=== PATIENT | male | born 1955 | race Caucasian/White ===

== ENCOUNTER 2018-06-23 20:47 | Observation (INO) | payer MEDICAID, OTHER ==
[~2018-06-23] VITALS: Ht 175.3 cm; Wt 84.0 kg
--- OUTSIDE RECORDS SUMMARY | 2018-06-23 20:53 | XMS REPORT ---
Author Author BASILIO BENEDICT [facility] eClinicalWorks Address Unknown Phone Unavailable Care Team Providers Care Paralegal Assistant Name Role Phone BASILIO BENEDICT CP Unavailable Allergies, Adverse Reactions, Alerts Substance Reaction Event Type N.K.D.A. Info Not Available Non Drug Allergy Problems Problem Type Condition Code Onset Dates Condition Status Problem Pain in soft tissues of limb 729.5 Active Problem Obstructive chronic bronchitis, with (acute) exacerbation 491.21 Active Problem Migraine aura without headache G43.109 Active Assessment Strain of chest wall, initial encounter S29.011A Active Problem Impacted cerumen 380.4 Active Problem Acute upper respiratory infections of unspecified site 465.9 Active Medications Medication Code System Code Instructions Start Date End Date Status Dosage Symbicort [facility] [address]-89 160-4.5 MCG/ACT Inhalation Twice a day [address] [facility] [address]-93 25 MG Orally every 12 hrs 1 tablet as needed Pantoprazole Sodium [facility] [address]-35 40 MG Orally Once a day [address] [facility] [address]-52 50 MG Orally Twice a day [address] [facility] [address]-00 0.4 MG Orally Once a day 1 capsule 30 minutes after the same meal each day Hydrocodone-Acetaminophen [facility] [address]-60 5-325 mg Nov 28, 2011 3 times per day Asp[address]in [facility] [address]-08 81 MG Orally Once a day [address] [facility] [address]-89 100 MG Orally Once a day 1.[address] [facility] [address]-10 30 MG Orally Once a day 1 tablet before bedtime in the evening Cyclobenzaprine HCl [facility] [address]-13 10 MG Orally Three times a day [address] [facility] [address]-90 800 MG Orally Three times a day as needed Jul 18, [address] [facility] [address]-41 5 mg Orally 2 times a day not defined Pravastatin Sodium [facility] [address]-08 40 MG Orally Once a day 0.[address] [facility] [address]-21 10 MG Orally not defined Metformin HCl [facility] [address]-94 1000 MG Orally Twice a day 1 tablet with meals Fioricet [facility] [address]-57 50-300-40 MG Orally every 4 hrs 1 capsule as needed Singulair [facility] [address]-70 10 MG Orally Once a day 1 tablet in the evening Flonase Allergy Relief [facility] [address]-80 50 MCG/ACT Nasally Once a day 1 spray in each nostril Procedures Procedure Coding System Code Date Office Visit, Est Pt., Level 3 CPT-4 15192 Jul 18, 2016 Vital Signs Date/Time: Jul 18, 2016 Cardiac Monitoring Heart Rate 87 bpm Weight 182 lbs Height 69 in BMI 26.87 Index Blood Pressure Diastolic 80 mmHg Blood Pressure Systolic 120 mmHg Results No Known Results Summary Purpose eClinicalWorks Submission
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
--- OUTSIDE RECORDS SUMMARY | 2018-06-23 20:53 | XMS REPORT ---
Author Author YOANA KIMMIE Organization [facility] Address [address] [place] [address] Care Team Providers Care Restaurant Attendant Name Role Phone SHOBHAURBAN OSBORNEYLA Unavailable PROBLEMS Type Condition ICD9-CM Code ZOF18-CM Code Onset Dates Condition Status SNOMED Code Problem Acute upper respiratory infections of unspecified site 465.9 Active 66531044 Problem Migraine aura without headache G43.109 Active 477202940 Problem Impacted cerumen 380.4 Active 93154137 Problem Pain in soft tissues of limb 729.5 Active 47295888 Problem Obstructive chronic bronchitis, with (acute) exacerbation 491.21 Active 756974635 Problem Chronic obstructive pulmonary disease with (acute) exacerbation J44.1 Active 829263334 Problem Bipolar disorder, current episode depressed, severe, without psychotic features F31.4 Active 044341089 Problem Bipolar I disorder F31.9 Active 386394003 Problem Episode of recurrent major depressive disorder, unspecified depression episode severity F33.9 Active 991953787 Problem Cocaine use disorder, severe, 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 [id number] [address] Sep, Bipolar disorder, current episode depressed, severe, without psychotic features F31.4 [facility] [address] 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 [facility] [address] [place] [address] Jun, Bipolar disorder, current episode depressed, severe, without psychotic features F31.4 ; PTSD (post-traumatic stress disorder) F43.10 and Cocaine use disorder, severe, 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 [facility] [address], [place] [address] Jun, [facility] [address], [place] [address] Jun, [place] [address], [place] [address] May, [facility] [address] [place] [address] May, Bipolar I disorder F31.9 and PTSD (post-traumatic stress disorder) F43.10 [facility] [address], [place] [address] May, Bipolar disorder, current episode depressed, severe, without psychotic features F31.4 ; PTSD (post-traumatic stress disorder) F43.10 and Cocaine use disorder, severe, 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 [facility] [address], [place] [address] May, [facility] [address] [address] Apr, Bipolar I disorder F31.9 ; PTSD (post-traumatic stress disorder) F43.10 and Episode of recurrent major depressive disorder, unspecified depression episode severity F33.9 [address]100[place] [id number] Aug, [place] [id number] [id number] Jul, Strain of chest wall, initial encounter S29.011A [address] [id number] Oct, Migraine aura without headache G43.109 [facility] [id number] [place] [address] Jan, [facility] [address] [place] [address] Jan, [address] [place] [id number] Jul, [address] [id number] Nov, IMMUNIZATIONS No Known Immunizations SOCIAL HISTORY Never Assessed REASON FOR VISIT MI Choice PLAN OF CARE VITAL SIGNS MEDICATIONS Medication Instructions Dosage Frequency Start Date End Date Duration Status Risperidone 1 MG Orally Once a day at bedtime 1 tablet Jun, 30 day(s) Active RESULTS No Results PROCEDURES No Known procedures INSTRUCTIONS MEDICATIONS ADMINISTERED No Known Medications MEDICAL [...]
--- OUTSIDE RECORDS SUMMARY | 2018-06-23 20:53 | XMS REPORT ---
Author Author YOANA KIMMIE Organization [facility] Address [address] [place] [address] Care Team Providers Care Welding Machine Operator Thermit Name Role Phone SHOBHATOBY OSBORNEA Unavailable PROBLEMS Type Condition ICD9-CM Code VLL92-GD Code Onset Dates Condition Status SNOMED Code Problem Acute upper respiratory infections of unspecified site 465.9 Active 71951443 Problem Migraine aura without headache G43.109 Active 277359514 Problem Impacted cerumen 380.4 Active 07833221 Problem Pain in soft tissues of limb 729.5 Active 73095508 Problem Obstructive chronic bronchitis, with (acute) exacerbation 491.21 Active 425973169 Problem Chronic obstructive pulmonary disease with (acute) exacerbation J44.1 Active 156479150 Problem Bipolar disorder, current episode depressed, severe, without psychotic features F31.4 Active 325942171 Problem Bipolar I disorder F31.9 Active 861355141 Problem Episode of recurrent major depressive disorder, unspecified depression episode severity F33.9 Active 077464390 Problem Cocaine use disorder, severe, 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 Active 37638618 Problem PTSD (post-traumatic stress disorder) F43.10 Active 47334478 ALLERGIES Substance Reaction Event Type Date Status Erythromycin rash/shortness of breath Drug Allergy May, Active Azithromycin rash/shortness of breath Drug Allergy May, Active ENCOUNTERS Encounter Location Date Diagnosis [facility] [address] [facility] [id number], [place] [address] Sep, Bipolar disorder, current episode depressed, severe, without psychotic features F31.4 [facility] [address] [place] [id number], [place] [address] Aug, Bipolar disorder, current episode depressed, severe, without psychotic features F31.4 ; PTSD (post-traumatic stress disorder) F43.10 and Cocaine use disorder, severe, 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 [place] [address], [place] [address] Aug, Bipolar I disorder F31.9 and PTSD (post-traumatic stress disorder) F43.10 [facility] [address], [place] [address] Jul, Bipolar disorder, current episode depressed, severe, without psychotic features F31.4 ; PTSD (post-traumatic stress disorder) F43.10 and Cocaine use disorder, severe, 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 [facility] [address] [place] [address] Jun, Bipolar disorder, current episode depressed, severe, without psychotic features F31.4 ; PTSD (post-traumatic stress disorder) F43.10 and Cocaine use disorder, severe, 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 [place] [address], [place] [address] Jun, [place] [address] [place] [id number] [place] [address] Jun, [facility] [id number] [place] [address] May, [facility] [address] [place] [id number] [place] [address] May, Bipolar I disorder F31.9 and PTSD (post-traumatic stress disorder) F43.10 [facility] [address], [place] [address] May, Bipolar disorder, current episode depressed, severe, without psychotic features F31.4 ; PTSD (post-traumatic stress disorder) F43.10 and Cocaine use disorder, severe, 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 [facility] [address], [place] [address] May, [facility] [address], [place] [address] Apr, Bipolar I disorder F31.9 ; PTSD (post-traumatic stress disorder) F43.10 and Episode of recurrent major depressive disorder, unspecified depression episode severity F33.9 [facility] [id number] [id number] Aug, [place] [id number] [place] [id number] Jul, Strain of chest wall, initial encounter S29.011A [address] [place] [id number] Oct, Migraine aura without headache G43.109 [place] [address] [place] [id number] [place] [address] Jan, [place] [address] [place] [id number] [place] [address] Jan, [address] [place] [id number] Jul, [address] [place] [id number] Nov, IMMUNIZATIONS No Known Immunizations SOCIAL HISTORY Never Assessed REASON FOR VISIT Intake DAVID Otto RN PLAN OF CARE Activity Details Follow Up 4 Weeks Reason: VITAL SIGNS Height 69 in 2017-06-13 Weight 191.6 lbs 2017-06-13 Heart Rate 88 bpm 2017-06-13 Respiratory Rate 24 2017-06-13 BMI 28.29 kg/m2 2017-06-13 Blood pressure systolic 130 mmHg 2017-06-13 Blood pressure diastolic 88 mmHg 2017-06-13 MEDICATIONS Medication Instructions Dosage Frequency Start Date End Date Duration Status Metformin HCl 1000 MG Orally Twice a day 1 tablet with meals 12h Active Pravastatin Sodium 40 MG Orally Once a day 0.5 tablet 24h Active Topamax 50 MG Orally Twice a day 1 tablet 12h Active Symbicort 160-4.5 MCG/ACT Inhalation Twice a day 2 puffs 12h Active Cetirizine HCl 10 MG Active Singulair 10 MG Orally Once a day 1 tablet in the evening 24h Active Flonase Allergy Relief 50 MCG/ACT Nasally Once a day 1 spray in each nostril 24h Active Fioricet 50-300-40 MG Orally every 4 hrs 1 capsule as needed 4h Active Gabapentin 300 MG Orally at bedtime 2 capsules Active Aspirin 81 MG Orally Once a day 1 tablet 24h Active Eliquis 5 mg Orally 2 times a day 12h Active Pantoprazole Sodium 40 MG Orally Once a day 1 tablet 24h Active Invega 3 MG Orally Once a day 1 tablet at night 24h May, 30 day (s) Active Promethazine HCl 25 MG Orally every 12 hrs 1 tablet as needed 12h Active Baclofen 10 MG Orally Three times a day 8h Active Flomax 0.4 MG Orally Once a day 1 capsule 30 minutes after the same meal each day 24h Active Hydrocodone-Acetaminophen 5-325 mg 3 times per day Nov, Active RESULTS No Results PROCEDURES No Known [...]
--- OUTSIDE RECORDS SUMMARY | 2018-06-23 20:53 | XMS REPORT ---
Author Author BASILIO BENEDICT Organization [employer] Address Unknown Phone Unavailable Care Team Providers Care Garage Door Technician Name Role Phone BASILIO BENEDICT CP Unavailable Allergies No Known Allergies Problems Problem Type Condition Code Onset Dates Condition Status Problem Pain in soft tissues of limb 729.5 Active Problem Obstructive chronic bronchitis, with (acute) exacerbation 491.21 Active Problem Migraine aura without headache G43.109 Active Problem Impacted cerumen 380.4 Active Problem Acute upper respiratory infections of unspecified site 465.9 Active Medications Medication Code System Code Instructions Start Date End Date Status Dosage ProAir HFA [facility] [address]-76 108 (90 Base) MCG/ACT Inhalation every 4 hrs Aug 27, 2016 2 puffs as needed Azithromycin [facility] [address]-86 250 MG Orally Once a day Aug 27, 2016 Aug 25, 2016 2 tablets on the first day, then 1 tablet daily for 4 days Results No Known Results Summary Purpose eClinicalWorks Submission
--- OUTSIDE RECORDS SUMMARY | 2018-06-23 20:54 | XMS REPORT ---
Author Author BASILIO BENEDICT [facility] eClinicalWorks Address Unknown Phone Unavailable Care Team Providers Care Termite Helper Name Role Phone BASILIO BENEDICT CP Unavailable Allergies, Adverse Reactions, Alerts Substance Reaction Event Type N.K.D.A. Info Not Available Non Drug Allergy Problems Problem Type Condition Code Onset Dates Condition Status Problem Pain in soft tissues of limb 729.5 Active Problem Obstructive chronic bronchitis, with (acute) exacerbation 491.21 Active Problem Migraine aura without headache G43.109 Active Assessment Migraine aura without headache G43.109 Active Problem Impacted cerumen 380.4 Active Problem Acute upper respiratory infections of unspecified site 465.9 Active Medications Medication Code System Code Instructions Start Date End Date Status Dosage Metformin HCl [facility] [address]-82 1000 MG Orally Twice a day 1 tablet with meals Cyclobenzaprine HCl [facility] [address]-25 10 MG Orally Three times a day 1 tablet Mirtazapine [facility] [address]-20 30 MG Orally Once a day 1 tablet before bedtime in the evening Hydrocodone-Acetaminophen [facility] [address]-47 5-325 mg Nov 28, 2011 3 times per day Singulair [facility] [address]-64 10 MG Orally Once a day 1 tablet in the evening Pantoprazole Sodium [facility] [address]-08 40 MG Orally Once a day 1 tablet Combivent Respimat [facility] [address]-33 20-100 MCG/ACT Inhalation Four times a day 1 puff Latuda [facility] [address]-84 80 MG Orally Once a day 1 tablet with food Flonase Allergy Relief [facility] [address]-34 50 MCG/ACT Nasally Once a day 1 spray in each nostril Amitriptyline HCl [facility] [address]-03 25 MG Orally Once a day Oct 25, 2015 .5-1 tablet Topamax [facility] [address]-18 50 MG Orally Twice a day 1 tablet Pravastatin Sodium [facility] [address]-80 40 MG Orally Once a day 0.5 tablet Browning Carbonate [facility] [address]-25 300 MG Orally 4 times a day 1 capsule Sertraline HCl [facility] [address]-36 100 MG Orally Once a day 1.5 tablet Fioricet [facility] [address]-78 50-300-40 MG Orally every 4 hrs 1 capsule as needed Aspirin [facility] [address]-97 81 MG Orally Once a day 1 tablet Promethazine HCl [facility] [address]-79 25 MG Orally every 12 hrs 1 tablet as needed Flomax [facility] [address]-46 0.4 MG Orally Once a day 1 capsule 30 minutes after the same meal each day Cetirizine HCl [facility] [address]-39 10 MG Orally not defined Procedures Procedure Coding System Code Date Office Visit, Est Pt., Level 3 CPT-4 27625 Oct 25, 2015 Vital Signs Date/Time: Oct 25, 2015 Temperature 98.1 F Weight 203.2 lbs Height 69 in BMI 30.00 Index Blood Pressure Diastolic 80 mmHg Blood Pressure Systolic 110 mmHg Cardiac Monitoring Heart Rate 78 bpm Results No Known Results Summary Purpose eClinicalWorks Submission
--- OUTSIDE RECORDS SUMMARY | 2018-06-23 20:54 | XMS REPORT ---
Author Author YOANA KIMMIE Organization [facility] Address [address] [place] [address] Care Team Providers Care Energy Advisor Name Role Phone SHOBHAURBAN OSBORNEYLA Unavailable PROBLEMS Type Condition ICD9-CM Code EIO93-AC Code Onset Dates Condition Status SNOMED Code Problem Acute upper respiratory infections of unspecified site 465.9 Active 18836557 Problem Migraine aura without headache G43.109 Active 153530452 Problem Impacted cerumen 380.4 Active 30530518 Problem Pain in soft tissues of limb 729.5 Active 81538671 Problem Obstructive chronic bronchitis, with (acute) exacerbation 491.21 Active 076860526 Problem Chronic obstructive pulmonary disease with (acute) exacerbation J44.1 Active 422344203 Problem Bipolar disorder, current episode depressed, severe, without psychotic features F31.4 Active 933777537 Problem Bipolar I disorder F31.9 Active 305856116 Problem Episode of recurrent major depressive disorder, unspecified depression episode severity F33.9 Active 290621606 Problem Cocaine use disorder, severe, 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 Active 55977637 Problem PTSD (post-traumatic stress disorder) F43.10 Active 88332926 ALLERGIES No Information ENCOUNTERS Encounter Location Date Diagnosis [facility] [address] [facility] [id number] [address] Sep, Bipolar disorder, current episode depressed, severe, without psychotic features F31.4 [facility] [address] [facility] [id number], [place] [address] Aug, Bipolar disorder, current episode depressed, severe, without psychotic features F31.4 ; PTSD (post-traumatic stress disorder) F43.10 and Cocaine use disorder, severe, 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 [facility] [address] [facility] [id number], [place] [address] Aug, Bipolar I disorder F31.9 and PTSD (post-traumatic stress disorder) F43.10 [facility] [address], [place] [address] Jul, Bipolar disorder, current episode depressed, severe, without psychotic features F31.4 ; PTSD (post-traumatic stress disorder) F43.10 and Cocaine use disorder, severe, 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 [facility] [address] [place] [address] Jun, Bipolar disorder, current episode depressed, severe, without psychotic features F31.4 ; PTSD (post-traumatic stress disorder) F43.10 and Cocaine use disorder, severe, 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 [facility] [address], [place] [address] Jun, [facility] [address], [place] [address] Jun, [place] [address], [place] [address] May, [facility] [address] [place] [address] May, Bipolar I disorder F31.9 and PTSD (post-traumatic stress disorder) F43.10 [facility] [address], [place] [address] May, Bipolar disorder, current episode depressed, severe, without psychotic features F31.4 ; PTSD (post-traumatic stress disorder) F43.10 and Cocaine use disorder, severe, 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 [facility] [address], [place] [address] May, [facility] [address] [address] Apr, Bipolar I disorder F31.9 ; PTSD (post-traumatic stress disorder) F43.10 and Episode of recurrent major depressive disorder, unspecified depression episode severity F33.9 [address] [id number] Aug, [place] [id number] [id number] Jul, Strain of chest wall, initial encounter S29.011A [place] [id number] [id number] Oct, Migraine aura without headache G43.109 [facility] [address] [place] [address] [id number] [place] [address] Jan, [facility] [address], [place] [address] Jan, [address] [place] [id number] Jul, [address] [id number] Nov, IMMUNIZATIONS No Known Immunizations SOCIAL HISTORY Never Assessed REASON FOR VISIT Medication refill request PLAN OF CARE VITAL SIGNS MEDICATIONS Medication Instructions Dosage Frequency Start Date End Date Duration Status Latuda 80 MG Orally every night with food 1 tablet 30 days Active RESULTS No Results PROCEDURES No Known [...] Surgical History had stent placed in heart 2014 Hospitalization History He has had multiple inpatient psychiatric treatment, last in his 30s. He has had several suicide attempts in teens and young adult
--- OUTSIDE RECORDS SUMMARY | 2018-06-23 20:54 | XMS REPORT ---
Author Author YOANA KIMMIE Organization [facility] Address [address] [place] [address] Care Team Providers Care Multifold Operator Name Role Phone SHOBHAURBAN OSBORNEYLA Unavailable PROBLEMS Type Condition ICD9-CM Code RRM73-PV Code Onset Dates Condition Status SNOMED Code Problem Acute upper respiratory infections of unspecified site 465.9 Active 51944869 Problem Migraine aura without headache G43.109 Active 824350941 Problem Impacted cerumen 380.4 Active 27789645 Problem Pain in soft tissues of limb 729.5 Active 62473562 Problem Obstructive chronic bronchitis, with (acute) exacerbation 491.21 Active 238445497 Problem Chronic obstructive pulmonary disease with (acute) exacerbation J44.1 Active 720061313 Problem Bipolar disorder, current episode depressed, severe, without psychotic features F31.4 Active 947454420 Problem Bipolar I disorder F31.9 Active 315128206 Problem Episode of recurrent major depressive disorder, unspecified depression episode severity F33.9 Active 250064505 Problem Cocaine use disorder, severe, 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 Active 90393565 Problem PTSD (post-traumatic stress disorder) F43.10 Active 90124255 ALLERGIES No Information ENCOUNTERS Encounter Location Date Diagnosis [facility] [address] [facility] [id number], [place] [address] Sep, Bipolar disorder, current episode depressed, severe, without psychotic features F31.4 [facility] [address] [facility] [id number], [place] [address] Aug, Bipolar disorder, current episode depressed, severe, without psychotic features F31.4 ; PTSD (post-traumatic stress disorder) F43.10 and Cocaine use disorder, severe, 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 [facility] [address] [facility] [id number], [place] [address] Aug, Bipolar I disorder F31.9 and PTSD (post-traumatic stress disorder) F43.10 [facility] [address], [place] [address] Jul, Bipolar disorder, current episode depressed, severe, without psychotic features F31.4 ; PTSD (post-traumatic stress disorder) F43.10 and Cocaine use disorder, severe, 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 [facility] [address] [place] [address] Jun, Bipolar disorder, current episode depressed, severe, without psychotic features F31.4 ; PTSD (post-traumatic stress disorder) F43.10 and Cocaine use disorder, severe, 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 [facility] [address], [place] [address] Jun, [facility] [address], [place] [address] Jun, [place] [address], [place] [address] May, [facility] [address] [place] [address] May, Bipolar I disorder F31.9 and PTSD (post-traumatic stress disorder) F43.10 [facility] [address], [place] [address] May, Bipolar disorder, current episode depressed, severe, without psychotic features F31.4 ; PTSD (post-traumatic stress disorder) F43.10 and Cocaine use disorder, severe, 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 [facility] [address], [place] [address] May, [facility] [address] [address] Apr, Bipolar I disorder F31.9 ; PTSD (post-traumatic stress disorder) F43.10 and Episode of recurrent major depressive disorder, unspecified depression episode severity F33.9 [address] [id number] Aug, [place] [id number] [id number] Jul, Strain of chest wall, initial encounter S29.011A [place] [id number] [id number] Oct, Migraine aura without headache G43.109 [facility] [address] [place] [id number] [place] [address] Jan, [facility] [address] [place] [address] Jan, [address] [place] [id number] Jul, [address] [id number] Nov, IMMUNIZATIONS No Known Immunizations SOCIAL HISTORY Never Assessed REASON FOR VISIT Medication question PLAN OF CARE VITAL SIGNS MEDICATIONS Medication Instructions Dosage Frequency Start Date End Date Duration Status Invega 3 MG Orally Once a day 1 tablet at night 24h May, 30 day (s) Active RESULTS No Results PROCEDURES No Known [...]
--- OUTSIDE RECORDS SUMMARY | 2018-06-23 20:54 | XMS REPORT ---
Author Author YOANA KIMMIE Organization [facility] Address [address] [place] [address] Care Team Providers Care Track Leader Name Role Phone SHOBHAURBAN OSBORNEYLA Unavailable PROBLEMS Type Condition ICD9-CM Code CIE66-NM Code Onset Dates Condition Status SNOMED Code Problem Acute upper respiratory infections of unspecified site 465.9 Active 79761106 Problem Migraine aura without headache G43.109 Active 769763869 Problem Impacted cerumen 380.4 Active 65440434 Problem Pain in soft tissues of limb 729.5 Active 09582822 Problem Obstructive chronic bronchitis, with (acute) exacerbation 491.21 Active 209998657 Problem Chronic obstructive pulmonary disease with (acute) exacerbation J44.1 Active 130330904 Problem Bipolar disorder, current episode depressed, severe, without psychotic features F31.4 Active 828283281 Problem Bipolar I disorder F31.9 Active 523916646 Problem Episode of recurrent major depressive disorder, unspecified depression episode severity F33.9 Active 527726544 Problem Cocaine use disorder, severe, 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 [id number], [place] [address] Sep, Bipolar disorder, current episode depressed, severe, without psychotic features F31.4 [facility] [address] 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 [facility] [address] [place] [address] Jun, Bipolar disorder, current episode depressed, severe, without psychotic features F31.4 ; PTSD (post-traumatic stress disorder) F43.10 and Cocaine use disorder, severe, 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 [facility] [address], [place] [address] Jun, [facility] [address], [place] [address] Jun, [place] [address], [place] [address] May, [facility] [address] [place] [address] May, Bipolar I disorder F31.9 and PTSD (post-traumatic stress disorder) F43.10 [facility] [address], [place] [address] May, Bipolar disorder, current episode depressed, severe, without psychotic features F31.4 ; PTSD (post-traumatic stress disorder) F43.10 and Cocaine use disorder, severe, 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 [facility] [address], [place] [address] May, [facility] [address] [address] Apr, Bipolar I disorder F31.9 ; PTSD (post-traumatic stress disorder) F43.10 and Episode of recurrent major depressive disorder, unspecified depression episode severity F33.9 [address] [id number] Aug, [place] [id number] [id number] Jul, Strain of chest wall, initial encounter S29.[address]A [address] [id number] Oct, Migraine aura without headache G43.109 [facility] [address] [place] [id number] [place] [address] Jan, [facility] [address] [place] [address] Jan, [address] [place] [id number] Jul, [address] [id number] Nov, IMMUNIZATIONS No Known Immunizations SOCIAL HISTORY Never Assessed REASON FOR VISIT INVEGA note PLAN OF CARE VITAL SIGNS MEDICATIONS Medication [...]
--- OUTSIDE RECORDS SUMMARY | 2018-06-23 20:54 | XMS REPORT ---
Author Author UMBERTO SOLOMON Organization [facility] Address [address] [place] [address] Care Team Providers Care Insurance Consultant Name Role Phone UMBERTO SOLOMON Unavailable PROBLEMS Type Condition ICD9-CM Code XHV52-BH Code Onset Dates Condition Status SNOMED Code Problem Acute upper respiratory infections of unspecified site 465.9 Active 17422968 Problem Migraine aura without headache G43.109 Active 201082489 Problem Impacted cerumen 380.4 Active 42521499 Problem Pain in soft tissues of limb 729.5 Active 26482454 Problem Obstructive chronic bronchitis, with (acute) exacerbation 491.21 Active 924113903 Problem Chronic obstructive pulmonary disease with (acute) exacerbation J44.1 Active 952757236 Problem Bipolar disorder, current episode depressed, severe, without psychotic features F31.4 Active 078288164 Problem Bipolar I disorder F31.9 Active 886069185 Problem Episode of recurrent major depressive disorder, unspecified depression episode severity F33.9 Active 605240856 Problem Cocaine use disorder, severe, 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 Active 13938059 Problem PTSD (post-traumatic stress disorder) F43.10 Active 08131358 ALLERGIES No Information ENCOUNTERS Encounter Location Date Diagnosis [facility] [address] [facility] [id number] [address] Sep, Bipolar disorder, current episode depressed, severe, without psychotic features F31.4 [facility] [address] [facility] [id number], [place] [address] Aug, Bipolar disorder, current episode depressed, severe, without psychotic features F31.4 ; PTSD (post-traumatic stress disorder) F43.10 and Cocaine use disorder, severe, 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 [facility] [address] [facility] [id number], [place] [address] Aug, Bipolar I disorder F31.9 and PTSD (post-traumatic stress disorder) F43.10 [facility] [address], [place] [address] Jul, 2017 Bipolar disorder, current episode depressed, severe, without psychotic features F31.4 ; PTSD (post-traumatic stress disorder) F43.10 and Cocaine use disorder, severe, 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 [facility] [address] [place] [address] Jun, Bipolar disorder, current episode depressed, severe, without psychotic features F31.4 ; PTSD (post-traumatic stress disorder) F43.10 and Cocaine use disorder, severe, 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 [facility] [address] [place] [address] Jun, [place] [address] [place] [address] Jun, [facility] [address] [place] [id number] [place] [address] May, [facility] [address] [place] [address] May, Bipolar I disorder F31.9 and PTSD (post-traumatic stress disorder) F43.10 [facility] [address] [place] [address] May, Bipolar disorder, current episode depressed, severe, without psychotic features F31.4 ; PTSD (post-traumatic stress disorder) F43.10 and Cocaine use disorder, severe, 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 [facility] [facility] [address], [place] [address] May, [facility] [facility] [address] [place] [id number] Apr, Bipolar I disorder F31.9 ; PTSD (post-traumatic stress disorder) F43.10 and Episode of recurrent major depressive disorder, unspecified depression episode severity F33.9 [address] [id number] Aug, [facility] [address] [facility] [id number] [id number] Jul, Strain of chest wall, initial encounter S29.011A [facility] [address] [place]0332[place] [id number] Oct, Migraine aura without headache G43.109 [facility] [place] [address], [place] [address] Jan, [facility] [facility] [address], [place] [address] Jan, [place] [id number] [id number] Jul, [facility] [address] [place] [id number] [id number] Nov, IMMUNIZATIONS No Known Immunizations SOCIAL HISTORY Never Assessed REASON FOR VISIT Waiting for call back PLAN OF CARE VITAL SIGNS MEDICATIONS Unknown Medications RESULTS No Results PROCEDURES No Known procedures [...]
--- OUTSIDE RECORDS SUMMARY | 2018-06-23 20:55 | XMS REPORT ---
Author Author YOANA KIMMIE Organization [facility] Address [address] [place] [address] Care Team Providers Care Jig Operator Name Role Phone YOANA KIMMIE Unavailable PROBLEMS Type Condition ICD9-CM Code NIN77-GN Code Onset Dates Condition Status SNOMED Code Problem Acute upper respiratory infections of unspecified site 465.9 Active 62619478 Problem Migraine aura without headache G43.109 Active 353750148 Problem Impacted cerumen 380.4 Active 82158854 Problem Pain in soft tissues of limb 729.5 Active 14696894 Problem Obstructive chronic bronchitis, with (acute) exacerbation 491.21 Active 940574398 Problem Chronic obstructive pulmonary disease with (acute) exacerbation J44.1 Active 960844973 Problem Bipolar disorder, current episode depressed, severe, without psychotic features F31.4 Active 131837303 Problem Bipolar I disorder F31.9 Active 888242942 Problem Episode of recurrent major depressive disorder, unspecified depression episode severity F33.9 Active 496228507 Problem Cocaine use disorder, severe, 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 Active 20718295 Problem PTSD (post-traumatic stress disorder) F43.10 Active 48227954 ALLERGIES No Known Allergies ENCOUNTERS Encounter Location Date Diagnosis [facility] [id number] [place] [address] Sep, Bipolar disorder, current episode depressed, severe, without psychotic features F31.4 [facility] [address] [id number], [place] [address] Aug, Bipolar disorder, current episode depressed, severe, without psychotic features F31.4 ; PTSD (post-traumatic stress disorder) F43.10 and Cocaine use disorder, severe, 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 [facility] [address] [id number], [place] [address] Aug, Bipolar I disorder F31.9 and PTSD (post-traumatic stress disorder) F43.10 [facility] [address] [address] Jul, Bipolar disorder, current episode depressed, severe, without psychotic features F31.4 ; PTSD (post-traumatic stress disorder) F43.10 and Cocaine use disorder, severe, 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 [facility] [address] [address] Jun, Bipolar disorder, current episode depressed, severe, without psychotic features F31.4 ; PTSD (post-traumatic stress disorder) F43.10 and Cocaine use disorder, severe, 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 [facility] [address] [address] Jun, [facility] [address] [address] Jun, [facility] [address] [place] [address] May, [facility] [address] [address] May, Bipolar I disorder F31.9 and PTSD (post-traumatic stress disorder) F43.10 [facility] [address] [address] May, Bipolar disorder, current episode depressed, severe, without psychotic features F31.4 ; PTSD (post-traumatic stress disorder) F43.10 and Cocaine use disorder, severe, 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 [facility] [address] [address] May, [facility] [address] [address] Apr, Bipolar I disorder F31.9 ; PTSD (post-traumatic stress disorder) F43.10 and Episode of recurrent major depressive disorder, unspecified depression episode severity F33.9 [address] [id number] Aug, [facility] [address] [facility] [id number] [id number] Jul, Strain of chest wall, initial encounter S29.011A [facility] [id number] [id number] Oct, Migraine aura without headache G43.109 [facility] [id number] [place] [address] Jan, [facility] [address], [place] [address] Jan, [address] [id number] Jul, [facility] [address] [id number] [id number] Nov, IMMUNIZATIONS No Known Immunizations SOCIAL HISTORY Never Assessed REASON FOR VISIT F/U--Ashley Campa MA PLAN OF CARE Activity Details Follow Up 2 Weeks Reason: VITAL SIGNS Height 69 in 2017-07-11 Weight 196.0 lbs 2017-07-11 Heart Rate 80 bpm 2017-07-11 Respiratory Rate 22 2017-07-11 BMI 28.94 kg/m2 2017-07-11 Blood pressure systolic 134 mmHg 2017-07-11 Blood pressure diastolic 84 mmHg 2017-07-11 MEDICATIONS Medication Instructions Dosage Frequency Start Date End Date Duration Status Flomax 0.4 MG Orally Once a day 1 capsule 30 minutes after the same meal each day 24h Active Cetirizine HCl 10 MG Active Topamax 50 MG Orally Twice a day 1 tablet 12h Active Promethazine HCl 25 MG Orally every 12 hrs 1 tablet as needed 12h Active Fioricet 50-300-40 MG Orally every 4 hrs 1 capsule as needed 4h Active Eliquis 5 mg Orally 2 times a day 12h Active Hydrocodone-Acetaminophen 5-325 mg 3 times per day Nov, Active Pantoprazole Sodium 40 MG Orally Once a day 1 tablet 24h Active Pravastatin Sodium 40 MG Orally Once a day 0.5 tablet 24h Active Gabapentin 300 MG Orally at bedtime 2 capsules Active Aspirin 81 MG Orally Once a day 1 tablet 24h Active Risperdal 1 MG Orally Once a day 0.5 tablet 24h Jun, 30 day(s) Active Risperidone 1 MG Orally Once a day at bedtime 1 tablet Jun, 30 day(s) Active Flonase Allergy Relief 50 MCG/ACT Nasally Once a day 1 spray in each nostril 24h Active Symbicort 160-4.5 MCG/ACT Inhalation Twice a day 2 puffs 12h Active Baclofen 10 MG Orally Three times a day 8h Active Metformin HCl 1000 MG Orally Twice a day 1 tablet with meals 12h Active Singulair 10 MG Orally Once a day 1 tablet in the evening 24h Active RESULTS No Results PROCEDURES No Known [...]
[2018-06-23] MEDS ORDERED: NITROGLYCERIN 0.4 MG SL TABS BTL 25'S SL ONE (20:57)
[2018-06-23] MEDS ORDERED: ASPIRIN 81 MG CHEW (CHILDREN'S ASA) ONE (20:57)
[2018-06-23] MEDS ORDERED: ASPIRIN 81 MG CHEW (CHILDREN'S ASA) PO ONE (21:00)
[2018-06-23 21:07] LABS: BASOPHILS % (AUTO) 1 % (0-10); EOSINOPHILS # (AUTO) 0.4 10^3/uL (0.0-0.3); EOSINOPHILS % (AUTO) 5 % (0-10); HEMATOCRIT 42 % (40-54); HEMOGLOBIN 14.3 G/DL (13.3-17.7); LYMPHOCYTES # (AUTO) 2.5 X 10^3 (1.0-4.0); LYMPHOCYTES % (AUTO) 33 % (12-44); MEAN CORPUSCULAR HEMOGLOBIN 31 PG (25-34); MEAN CORPUSCULAR HGB CONC 34 G/DL (32-36); MEAN CORPUSCULAR VOLUME 91 FL (80-99); MEAN PLATELET VOLUME 10.6 FL (7.4-10.4); MONOCYTES # (AUTO) 0.6 X 10^3 (0.0-1.0); MONOCYTES % (AUTO) 8 % (0-12); NEUTROPHILS % (AUTO) 54 % (42-75); PLATELET COUNT 291 10^3/uL (130-400); RED BLOOD COUNT 4.61 10^6/uL (4.35-5.85); RED CELL DISTRIBUTION WIDTH 12.8 % (10.0-14.5); WHITE BLOOD COUNT 7.5 10^3/uL (4.3-11.0)
[2018-06-23] MEDS: NITROGLYCERIN 0.4 MG SL TABS BTL 25'S SL PRN ×3 (21:07→21:21)
[2018-06-23 21:26] LABS: ALANINE AMINOTRANSFERASE 11 U/L (0-55); ALBUMIN 4.4 GM/DL (3.2-4.5); ALKALINE PHOSPHATASE 66 U/L (40-136); AMYLASE 21 U/L (25-125); BILIRUBIN,TOTAL 0.5 MG/DL (0.1-1.0); BUN/CREATININE RATIO 5; CALCIUM 9.3 MG/DL (8.5-10.1); CARBON DIOXIDE 21 MMOL/L (21-32); CHLORIDE 105 MMOL/L (98-107); CREATINE KINASE 96 U/L (30-200); CREATININE SERUM 0.77 MG/DL (0.60-1.30); GFR ESTIMATED > 60; GLUCOSE 121 MG/DL (70-105); LIPASE 22 U/L (8-78); MAGNESIUM 1.8 MG/DL (1.8-2.4); POTASSIUM 2.9 MMOL/L (3.6-5.0); SODIUM 141 MMOL/L (135-145); TOTAL PROTEIN 7.3 GM/DL (6.4-8.2)
[2018-06-23] MEDS ORDERED: morphine INJ 10 MG/ML 1ML (SYR OR VIAL) IVP STA ×3 (21:29→22:54)
--- NOTE | 2018-06-23 21:29 | Diagnostic Imaging Report ---
EXAMINATION: Chest radiograph, portable AP view. DATE: June 23, 2018 at 2114 hours. INDICATION: 62-year-old male, severe chest pain. COMPARISON: None. FINDINGS: Heart size and mediastinal contours are unremarkable. There is no identified pneumothorax. There is eventration of the right hemidiaphragm. There is slight blunting of the left lateral costophrenic angle. There are minimal streaky opacities in the left lung base. The right lung appears grossly clear. IMPRESSION: 1. Minimal blunting of the left lateral costophrenic angle and minimal streaky opacities in the left lung base which potentially may reflect atelectasis although a small amount of infiltrate and/or pleural effusion are difficult to exclude. Dictated by: Dictated on workstation # [id number]
[2018-06-23] MEDS ORDERED: KCL 20 MEQ TAB (K-DUR) PO ONE (21:30)
[2018-06-23 21:34] LABS: MYOGLOBIN SERUM 41.9 NG/ML (10.0-92.0)
--- NOTE | 2018-06-23 21:37 | ED Chest Pain ---
General Chief Complaint: Chest Pain Stated Complaint: CP Source: patient History of Present Illness Date Seen by Provider: Jun 23, 2018 Time Seen by Provider: 20:53 Initial Comments PT ARRIVES VIA POV FROM HOME C/O CHEST PAIN SINCE 1300 TODAY PAIN HAS BEEN OFF AND ON ALL DAY, BUT HAS BEEN MUCH WORSE AND CONSTANT FOR THE LAST HOUR RATES PAIN 7 OR 8/10 NOTHING WORSENS OR IMPROVES PAIN NO RADIATION OF PAIN + SWEATS + SHORTNESS OF BREATH CHRONIC LEG ANKLE SWELLING THAT COMES AND GOES, IS NOT PRESENT NOW NO PALPITATIONS NO DIZZINESS OR SYNCOPE NO COUGH, FEVER, OR RECENT ILLNESS PT HAS HISTORY OF CAD WITH STENT X 1 IN 2012 DOES NOT HAVE ANY NTG AT HOME PT HAS NOT TAKEN ANY ASPIRIN TODAY PT CONTINUES TO SMOKE AT LEAST 1 PPD PT DRINKS ON REGULAR BASIS, AND STATES HE HAS HAD 2 BEERS TODAY. PT HAS HISTORY OF COCAINE AND THC USE, BUT DENIES RECENT USE AND DENIES IV USE. PCP: MICAH IN [facility] Allergies and Home Medications Allergies Coded Allergies: doxycycline (Verified Allergy, Severe, Rash, 06/24/18) levofloxacin (Verified Allergy, Severe, Rash, 06/24/18) Patient Home Medication List Home Medication List Reviewed: Yes Review of Systems Review of Systems Constitutional: see HPI, diaphoresis; No dizziness EENTM: No Symptoms Reported Respiratory: See HPI, Shortness of Air Cardiovascular: See HPI, Chest Pain; Denies Edema, Denies Irregular Heart Rate , Denies Lightheadedness, Denies Palpitations, Denies Syncope Gastrointestinal: No Symptoms Reported; Denies Abdominal Pain, Denies Nausea, Denies Vomiting Genitourinary: No Symptoms Reported Musculoskeletal: no symptoms reported Skin: no symptoms reported Psychiatric/Neurological: No Symptoms Reported Endocrine: No Symptoms Reported Hematologic/Lymphatic: No Symptoms Reported Past Dxptlea-Hcxscv-Gzcezc Hx Patient Social History Alcohol Use: Regular Use (3-4 DRINKS A DAY ) Recreational Drug Use: Yes (HX OF COCAINE, THC USE. DENIES IV USE) Drug of Choice: HX O COCAINE, THC USE. DENIES IV USE Smoking Status: Current Everyday Smoker (1 PPD) Recent Foreign Travel: No Contact w/Someone Who Travel: No Past Medical History Surgeries: Yes (CARDIAC CATH WITH STENT X 1) Cardiac, Coronary Stent Respiratory: No Cardiac: Yes Coronary Artery Disease, Heart Attack, High Cholesterol Neurological: No Genitourinary: No Gastrointestinal: Yes Gastroesophageal Reflux, Gastrointestinal Bleed, Esophagitis, Ulcer Musculoskeletal: No Endocrine: No HEENT: No Psychosocial: No Integumentary: No Blood Disorders: No Physical Exam Vital Signs Vital Signs - First Documented Capillary Refill : Height, Weight, BMI Height: '" Weight: lbs. oz. kg; BMI Method: General Appearance: No Apparent Distress, WD/WN, Other (REEKS OF CIGARETTE) HEENT: PERRL/EOMI Neck: Full Range of Motion, Normal Inspection, Non Tender, Supple; No Carotid Bruit, No JVD Respiratory: Normal Breath Sounds, No Accessory Muscle Use, No Respiratory Distress Cardiovascular: Regular Rate, Rhythm, No Edema, No JVD, No Murmur, Normal Peripheral Pulses Gastrointestinal: Normal Bowel Sounds, No Organomegaly, No Pulsatile Mass, Non Tender, Soft Extremity: Normal Capillary Refill, Normal Inspection, Normal Range of Motion, Non Tender, No Calf Tenderness, No Pedal Edema Neurologic/Psychiatric: Alert, Oriented x3, No Motor/Sensory Deficits, Normal Mood/Affect, reliner II-XII Norm as Tested Skin: Normal Color, Warm/Dry Progress/Results/Core Measures Results/Orders Lab Results Laboratory Tests Test 06/23/18 20:55 06/23/18 21:32 Range/Units White Blood Count 7.5 4.3-11.0 10^3/uL Red Blood Count 4.61 4.35-5.85 10^6/uL Hemoglobin 14.3 13.3-17.7 G/DL Hematocrit 42 40-54 % Mean Corpuscular Volume 91 80-99 FL Mean Corpuscular Hemoglobin 31 25-34 PG Mean Corpuscular Hemoglobin Concent 34 32-36 G/DL Red Cell Distribution Width 12.8 10.0-14.5 % Platelet Count 291 130-400 10^3/uL Mean Platelet Volume 10.6 H 7.4-10.4 FL Neutrophils (%) (Auto) 54 42-75 % Lymphocytes (%) (Auto) 33 12-44 % Monocytes (%) (Auto) 8 0-12 % Eosinophils (%) (Auto) 5 0-10 % Basophils (%) (Auto) 1 0-10 % Neutrophils # (Auto) 4.0 1.8-7.8 X 10^3 Lymphocytes # (Auto) 2.5 1.0-4.0 X 10^3 Monocytes # (Auto) 0.6 0.0-1.0 X 10^3 Eosinophils # (Auto) 0.4 H 0.0-0.3 10^3/uL Basophils # (Auto) 0.0 0.0-0.1 10^3/uL Prothrombin Time 13.0 12.2-14.7 SEC INR Comment 1.0 0.8-1.4 Activated Partial Thromboplast Time 26 24-35 SEC Sodium Level 141 135-145 MMOL/L Potassium Level 2.9 L 3.6-5.0 MMOL/L Chloride Level 105 98-107 MMOL/L Carbon Dioxide Level 21 21-32 MMOL/L Anion Gap 15 H 5-14 MMOL/L Blood Urea Nitrogen 4 L 7-18 MG/DL Creatinine 0.77 0.60-1.30 MG/DL Estimat Glomerular Filtration Rate > 60 BUN/Creatinine Ratio 5 Glucose Level 121 H 70-105 MG/DL Calcium Level 9.3 8.5-10.1 MG/DL Corrected Calcium 9.0 8.5-10.1 MG/DL Magnesium Level 1.8 1.8-2.4 MG/DL Total Bilirubin 0.5 0.1-1.0 MG/DL Aspartate Amino Transf (AST/SGOT) 10 5-34 U/L Alanine Aminotransferase (ALT/SGPT) 11 0-55 U/L Alkaline Phosphatase 66 40-136 U/L Total Creatine Kinase 96 30-200 U/L Creatine Kinase MB 2.0 <6.6 NG/ML Myoglobin 41.9 10.0-92.0 NG/ML Troponin I < 0.30 <0.30 NG/ML B-Type Natriuretic Peptide 62.6 <100.0 PG/ML Total Protein 7.3 6.4-8.2 GM/DL Albumin 4.4 3.2-4.5 GM/DL Amylase Level 21 L 25-125 U/L Lipase 22 8-78 U/L Serum Alcohol 12 H <10 MG/DL Urine Color YELLOW Urine Clarity CLEAR Urine pH 6.5 5-9 Urine Specific [place] 1.010 L 1.016-1.022 Urine Protein NEGATIVE NEGATIVE Urine Glucose (UA) NEGATIVE NEGATIVE Urine Ketones NEGATIVE NEGATIVE Urine Nitrite NEGATIVE NEGATIVE Urine Bilirubin NEGATIVE NEGATIVE Urine Urobilinogen NORMAL NORMAL MG/DL Urine Leukocyte Esterase NEGATIVE NEGATIVE Urine RBC (Auto) NEGATIVE NEGATIVE Urine RBC NONE /HPF Urine WBC NONE /HPF Urine Squamous Epithelial Cells RARE /HPF Urine Crystals NONE /LPF Urine Bacteria NONE /HPF Urine Casts NONE /LPF Urine Mucus NEGATIVE /LPF Urine Culture Indicated NO Urine Opiates Screen POSITIVE H NEGATIVE Urine Oxycodone Screen NEGATIVE NEGATIVE Urine Methadone Screen NEGATIVE NEGATIVE Urine Propoxyphene Screen NEGATIVE NEGATIVE Urine Barbiturates Screen NEGATIVE NEGATIVE Ur Tricyclic Antidepressants Screen NEGATIVE NEGATIVE Urine Phencyclidine Screen NEGATIVE NEGATIVE Urine Amphetamines Screen NEGATIVE NEGATIVE Urine Methamphetamines Screen NEGATIVE NEGATIVE Urine Benzodiazepines Screen NEGATIVE NEGATIVE Urine Cocaine Screen NEGATIVE NEGATIVE Urine Cannabinoids Screen NEGATIVE NEGATIVE My Orders Orders - LIZET MAYA DO Cbc With Automated Diff (06/23/18 20:59) Magnesium (06/23/18 20:59) Chest 1 View, Ap/Pa Only (06/23/18 20:59) Ekg Tracing (06/23/18 20:59) Cardiac Profile 1 (06/23/18 20:59) Comprehensive Metabolic Panel (06/23/18 20:59) Myoglobin Serum (06/23/18 20:59) Protime With Inr (06/23/18 20:59) Partial Thromboplastin Time (06/23/18 20:59) O2 (06/23/18 20:59) Monitor-Rhythm Ecg Trace Only (06/23/18 20:59) Aspirin Chewable Tablet (Baby Aspirin Ch (06/23/18 21:00) Nitroglycerin 0.4 Mg Btl 25's (Nitrostat (06/23/18 21:00) Saline Lock/Iv-Start (06/23/18 20:59) Creatine Kinase (06/23/18 20:59) Creatine Kinase Mb (06/23/18 20:59) Lipase (06/23/18 20:59) Amylase (06/23/18 20:59) BNP (06/23/18 20:59) Alcohol (06/23/18 20:59) Drug Screen Stat (Urine) (06/23/18 20:59) Ua Culture If Indicated (06/23/18 20:59) Nitroglycerin 0.4 Mg Btl 25's (Nitrostat (06/23/18 20:57) Aspirin Chewable Tablet (Baby Aspirin Ch (06/23/18 20:57) Potassium Chloride (Tablet) (K Dur Table (06/23/18 21:30) Ct Angio Chest W (06/23/18 21:28) Morphine Injection (Morphine Injection (06/23/18 21:29) Iohexol Injection (Omnipaque 350 Mg/Ml 1 (06/23/18 22:00) Ns (Ivpb) (Sodium Chloride 0.9%) (06/23/18 22:00) Morphine Injection (Morphine Injection (06/23/18 22:13) Medications Given in ED Current Medications Medications Dose Ordered Sig/Edgar Route Start Time Stop Time Status Last Admin Dose Admin Aspirin 324 mg ONCE ONCE PO 06/23/18 21:00 06/23/18 21:02 DC 06/23/18 21:06 324 MG Iohexol 125 ml ONCE ONCE IV 06/23/18 22:00 06/23/18 22:01 DC 06/23/18 21:48 125 ML Nitroglycerin 0.4 mg UD PRN SL 06/23/18 21:00 06/23/18 21:26 DC 06/23/18 21:21 0.4 MG Potassium Chloride 40 meq ONCE ONCE PO 06/23/18 21:30 06/23/18 21:32 DC 06/23/18 21:40 40 MEQ Sodium Chloride 80 ml ONCE ONCE IV 06/23/18 22:00 06/23/18 22:01 DC 06/23/18 21:48 80 ML Vital Signs/I&O 06/23/18 06/23/18 20:53 20:53 Pulse 76 B/P (MAP) 165/81 (109) O2 Delivery Room Air Room Air Progress Progress Note : Progress Note NO RELIEF WITH NTG X 3 PT HAD TEMPORARY RELIEF WITH MORPHINE Initial ECG Impression Date: Jun 23, 2018 Initial ECG Impression Time: 20:55 Initial ECG Rate: 74 Initial ECG Rhythm: Normal Sinus (RBBB) Initial ECG Comparisson: No Previous ECG Available Diagnostic Imaging Comments CXR--NO ACUTE PROCESS, PER RADIOLOGIST REPORT CT CHEST ANGIOGRAM--NO P.E. OR ACUTE PROCESS, PER RADIOLOGIST REPORT AT 0894, AND PER [facility] VIA FAX @ [phone] Reviewed: Reviewed by Me Departure Communication (Admissions) 2242--SPOKE WITH DR. MUNGUIA, ACCEPTS PT FOR ADMIT Impression Primary Impression: Chest pain Additional Impression: HX OF CAD WITH STENT Disposition: ADMITTED INPATIENT Condition: Improved Admissions Decision to Admit Reason: Admit from ER (General) Decision to Admit/Date: Jun 23, 2018 Time/Decision to Admit Time: 22:45 LIZET MAYA DO Jun 23, 2018 21:37
[2018-06-23 21:42] LABS: BILIRUBIN,URINE NEGATIVE (NEGATIVE); CLARITY,URINE CLEAR; COLOR,URINE YELLOW; GLUCOSE, URINE (UA) NEGATIVE (NEGATIVE); KETONES,URINE NEGATIVE (NEGATIVE); LEUKOCYTE ESTERASE ,URINE NEGATIVE (NEGATIVE); NITRITE,URINE NEGATIVE (NEGATIVE); PH,URINE 6.5 (5-9); PROTEIN,URINE NEGATIVE (NEGATIVE); UROBILINOGEN,URINE NORMAL (NORMAL)
[2018-06-23] MEDS ORDERED: NS 250 ML (IVPB) BAG IV ONE (22:00)
[2018-06-23] MEDS ORDERED: IOHEXOL 350 MG/ML 150 ML (OMNIPAQUE 350) VIAL IV ONE (22:00)
[2018-06-23 22:04] LABS: AMPHETAMINE SCREEN, URINE NEGATIVE (NEGATIVE); BARBITURATE SCREEN URINE NEGATIVE (NEGATIVE); BENZODIAZEPINES SCREEN URINE NEGATIVE (NEGATIVE); CANNABINOID SCREEN, URINE NEGATIVE (NEGATIVE); COCAINE SCREEN URINE NEGATIVE (NEGATIVE); METHADONE STAT NEGATIVE (NEGATIVE); METHAMPHETAMINE SCREEN URINE S NEGATIVE (NEGATIVE); OPIATE SCREEN URINE POSITIVE (NEGATIVE); OXYCODONE STAT NEGATIVE (NEGATIVE); PROPOXYPHENE STAT NEGATIVE (NEGATIVE); SQUAMOUS EPITHELIAL CELL,UR RARE /HPF; TRICYCLIC ANTIDEPRESSANTS SCRE NEGATIVE (NEGATIVE)
--- NOTE | 2018-06-23 22:28 | Diagnostic Imaging Report ---
PROCEDURE: CT angiography of the chest with contrast. TECHNIQUE: Multiple contiguous axial images were obtained through the chest after uneventful bolus administration of intravenous contrast. Reconstructed CTA MIP acquisitions were also performed. DATE: June 23, 2018. COMPARISON: Chest radiograph June 23, 2018. INDICATION: 62-year-old male, chest pain. FINDINGS: There are upper lobe changes of centrilobular and paraseptal emphysema. There is no identified pulmonary nodule or lung mass. There is minimal atelectasis in the right lower lobe and left lower lobe. There is no additional focal airspace consolidation. There is no pneumothorax. There is no pleural effusion. The central airways are patent. There is no identified pulmonary embolus. The main pulmonary artery is normal in caliber. The heart is not enlarged. There is no pericardial effusion. There are atherosclerotic calcifications. There is no abnormally enlarged mediastinal, hilar, or axillary lymph node which meets CT size criteria for adenopathy. Limited evaluation of the visualized portions of the upper abdomen is unremarkable. There is no identified acute bony abnormality. IMPRESSION: CT CHEST. 1. No identified pulmonary embolus or other acute cardiopulmonary abnormality. Minimal atelectasis in the lung bases. 2. Upper lobe predominant changes of emphysema. Dictated by: Dictated on workstation # [id number]
[2018-06-23 23:30] VITALS: BP 142/84
[2018-06-23 23:45] VITALS: BP 152/82
[2018-06-24] VITALS (19 sets, daily range): BP systolic 122–152; BP diastolic 67–100
[2018-06-24] MEDS: 1/2 NS W/KCL 20 MEQ/L 1,000 ML IV SCH ×2 (00:02→11:04)
[2018-06-24] MEDS: morphine INJ 10 MG/ML 1ML (SYR OR VIAL) IVP PRN ×6 (00:02→18:00)
[2018-06-24 03:53] LABS: BASOPHILS # (AUTO) 0.1 10^3/uL (0.0-0.1); BASOPHILS % (AUTO) 1 % (0-10); EOSINOPHILS # (AUTO) 0.4 10^3/uL (0.0-0.3); EOSINOPHILS % (AUTO) 5 % (0-10); HEMATOCRIT 39 % (40-54); LYMPHOCYTES # (AUTO) 3.5 X 10^3 (1.0-4.0); LYMPHOCYTES % (AUTO) 40 % (12-44); MEAN CORPUSCULAR HEMOGLOBIN 31 PG (25-34); MEAN CORPUSCULAR HGB CONC 33 G/DL (32-36); MEAN CORPUSCULAR VOLUME 92 FL (80-99); MEAN PLATELET VOLUME 11.1 FL (7.4-10.4); MONOCYTES # (AUTO) 0.7 X 10^3 (0.0-1.0); MONOCYTES % (AUTO) 8 % (0-12); NEUTROPHILS # (AUTO) 4.1 X 10^3 (1.8-7.8); NEUTROPHILS % (AUTO) 47 % (42-75); PLATELET COUNT 255 10^3/uL (130-400); RED BLOOD COUNT 4.23 10^6/uL (4.35-5.85); RED CELL DISTRIBUTION WIDTH 12.8 % (10.0-14.5); WHITE BLOOD COUNT 8.9 10^3/uL (4.3-11.0)
[2018-06-24 04:05] LABS: ALANINE AMINOTRANSFERASE 10 U/L (0-55); ALKALINE PHOSPHATASE 59 U/L (40-136); BILIRUBIN,TOTAL 0.4 MG/DL (0.1-1.0); BUN/CREATININE RATIO 7; CALCIUM 8.7 MG/DL (8.5-10.1); CARBON DIOXIDE 23 MMOL/L (21-32); CHLORIDE 105 MMOL/L (98-107); CHOLESTEROL 149 MG/DL (< 200); CREATININE SERUM 0.71 MG/DL (0.60-1.30); GFR ESTIMATED > 60; GLUCOSE 107 MG/DL (70-105); HDL CHOLESTEROL 38 MG/DL (40-60); POTASSIUM 3.7 MMOL/L (3.6-5.0); SODIUM 141 MMOL/L (135-145); TOTAL PROTEIN 6.5 GM/DL (6.4-8.2); TRIGLYCERIDES 110 MG/DL (<150); VLDL CHOLESTEROL 22 MG/DL (5-40)
[2018-06-24 04:18] LABS: CARDIAC PROFILE 2 < 0.30 NG/ML (<0.30)
--- NOTE | 2018-06-24 06:19 | Pulmonary Consultation ---
History of Present Illness History of Present Illness Date of Consultation 06/24/18 06:09 Time Seen by Provider: 06:09 Date of Admission History of Present Illness 62yo presented to ED secondary to midsternal chest pressure without radiation. reporting persistent chest pain this morning, did not improve after nitroglycerin or morphine. Denied any palpitation, syncope or near syncopal episode, Allergies and Home Medications Allergies Coded Allergies: doxycycline (Verified Allergy, Severe, Rash, 06/24/18) levofloxacin (Verified Allergy, Severe, Rash, 06/24/18) Home Medications Apixaban 2.5 Mg Tablet, 2.5 MG PO HS, (Reported) Aspirin 81 Mg Tablet.dr, 81 MG PO HS, (Reported) Baclofen 20 Mg Tablet, 10 MG PO TID PRN for MUSCLE SPASMS, (Reported) Cetirizine HCl 10 Mg Tablet, 10 MG PO HS, (Reported) Cyanocobalamin (Vitamin B-12) 500 Mcg Tablet, 1,000 MCG PO HS, (Reported) Duloxetine HCl 60 Mg Capsule.dr, 60 MG PO HS, (Reported) Fluticasone Propionate 16 Gm [place].susp, 2 SPRAYS NS HS PRN for ALLERGIES, ( Reported) Gabapentin 300 Mg Capsule, 600 MG PO HS, (Reported) TAKES 2 (300MG) CAPSULES Hydrocodone/Acetaminophen 1 Each Tablet, 1 TAB PO TID PRN for PAIN-MODERATE, ( Reported) Ipratropium/Albuterol Sulfate 3 Ml Ampul.neb, 3 ML IH Q6H PRN for SHORTNESS OF BREATH, (Reported) Lurasidone HCl 80 Mg Tablet, 80 MG PO HS, (Reported) Metformin HCl 1,000 Mg Tablet, 1,000 MG PO HS, (Reported) LAST FILLED #180 10-02-17 Montelukast Sodium 10 Mg Tablet, 10 MG PO HS, (Reported) Pantoprazole Sodium 40 Mg Tablet.dr, 40 MG PO HS, (Reported) Pravastatin Sodium 40 Mg Tablet, 20 MG PO HS, (Reported) LAST FILLED #45 18 Promethazine HCl 25 Mg Tablet, 25 MG PO Q6H PRN for NAUSEA/VOMITING-2ND LINE, ( Reported) Promethazine HCl 25 Mg Tablet, 25 MG PO HS, (Reported) Tamsulosin HCl 0.4 Mg Cap, 0.4 MG PO HS, (Reported) Topiramate 50 Mg Tablet, 50 MG PO HS, (Reported) Past Pyfxaac-Fntebr-Akhmwv Hx Patient Social History Alcohol Use: Rarely Uses Number of Drinks Today: 2 Alcohol Beverage of Choice: Beer, Whiskey Recreational Drug Use: No (PAST USE OF COCAINE AND MARIJUANA) Smoking Status: Current Everyday Smoker Type Used: Cigarettes Recent Foreign Travel: No Contact w/Someone Who Travel: No Recent Infectious Disease Expo: No Recent Hopitalizations: No Immunizations Up To Date Tetanus Booster (TDap): Unknown PED Vaccines UTD: No Seasonal Allergies Seasonal Allergies: No Past Medical History Surgeries: Yes Respiratory: Yes Pneumonia, Chronic Bronchitis, COPD, Emphysema Currently Using CPAP: No Currently Using BIPAP: No Cardiac: Yes (CARDIAC STENT ) High Cholesterol Neurological: Yes Sexually Transmitted Disease: No HIV/AIDS: No Genitourinary: Yes Prostate Problems Gastrointestinal: Yes Ulcer Musculoskeletal: Yes Arthritis, Chronic Back Pain Endocrine: Yes HEENT: Yes Cataract Loss of Vision: Bilateral Hearing Impairment: Hard of Hearing Cancer: Yes Colon Did You Recieve Any Treatments: Yes What Type of Treatment Did You: Chemotherapy Psychosocial: No Integumentary: No Blood Disorders: No Adverse Reaction/Blood Tranf: No Review of Systems Time Seen by Provider: 06:24 Constitutional: Sweats, Weakness, Malaise; No: Fever, Chills, Other Eyes: No: Pain, Vision change, Conjunctivae inflammation, Eyelid inflammation, Other, Redness ENT: No: Ear pain, Ear discharge, Nose pain, Nose discharge, Nose congestion, Mouth pain, Mouth swelling, Throat pain, Throat swelling, Other Respiratory: Cough, Dry, Shortness of breath Cardiovascular: Chest Pain, Paroxysmal Noc. Dyspnea Gastrointestinal: No: Nausea, Vomiting, Abdominal Pain, Diarrhea, Constipation , Melena, Hematochezia, Other Sepsis Event Evaluation Height, Weight, BMI Height: 5'9.00" Weight: 185lbs. 4.0oz. 84.356878ay; 27.4 BMI Method:Stated Exam Exam Vital Signs Date Time Temp Pulse Resp B/P (MAP) Pulse Ox O2 Delivery O2 Flow Rate FiO2 06/24/18 03:20 97.3 Nasal Cannula 2.00 06/24/18 03:20 96 Nasal Cannula 2.00 06/24/18 03:00 90 19 141/80 (100) 98 Room Air 06/24/18 02:00 74 10 143/81 (101) 88 Room Air 9/11/18 01:00 77 06/24/18 01:00 77 14 135/92 (106) 96 Room Air 06/24/18 00:45 73 13 147/78 (101) 97 Room Air 06/24/18 00:30 66 12 137/78 (97) 97 Room Air 06/24/18 00:15 60 11 140/80 (100) 98 Room Air 06/24/18 00:06 96 Nasal Cannula 2.00 06/24/18 00:00 64 16 141/78 (99) 93 Room Air 06/23/18 23:45 64 12 152/82 (105) 94 Room Air 06/23/18 23:40 98 Room Air 06/23/18 23:33 65 06/23/18 23:30 Nasal Cannula 2.00 06/23/18 23:30 97.9 62 14 142/84 (103) 96 Room Air 06/23/18 23:19 76 19 141/75 (109) 97 Room Air 06/23/18 20:53 Room Air 06/23/18 20:53 76 165/81 (109) Room Air I & O 06/24/18 06:59 Intake Total 0 ml Output Total 450 ml Balance -450 ml Height & Weight Height: 5'9.00" Weight: 185lbs. 4.0oz. 84.242136ke; 27.4 BMI Method:Stated General Appearance: WD/WN, Anxious, Mild Distress, Other (REEKS OF CIGARETTE) HEENT: PERRL/EOMI Neck: Full Range of Motion, Normal Inspection, Non Tender, Supple; No Carotid Bruit, No JVD Respiratory: Normal Breath Sounds, No Accessory Muscle Use, No Respiratory Distress Cardiovascular: Regular Rate, Rhythm, No Edema, No JVD, No Murmur, Normal Peripheral Pulses Capillary Refill: Less Than 3 Seconds Extremity: Normal Capillary Refill, Normal Inspection, Normal Range of Motion, Non Tender, No Calf Tenderness, No Pedal Edema Neurologic/Psychiatric: Alert, Oriented x3, No Motor/Sensory Deficits, Normal Mood/Affect, 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
[2018-06-24] MEDS ORDERED: RT-ALBUTEROL/IPRATROPIUM 3 ML (DUONEB) VIAL INH SCH (06:30)
[2018-06-24] MEDS ORDERED: ENOXAPARIN 40 MG/0.4 ML (LOVENOX) SYR SC SCH (06:30)
[2018-06-24] MEDS ORDERED: RT-ALBUTEROL/IPRATROPIUM 3 ML (DUONEB) VIAL INH PRN (06:30)
[2018-06-24] MEDS ORDERED: NS IV 1000 ML 3,000 ML ONE (07:16)
[2018-06-24] MEDS ORDERED: LIDOCAINE 1% INJ 20 ML 20 ML VIAL ONE (07:16)
[2018-06-24] MEDS ORDERED: HEParin 1000 UNIT/ML (10ML VIAL) FOR BOLUS ONE (07:17)
[2018-06-24] MEDS: NITROGLYCERIN 0.4 MG SL TABS BTL 25'S SL PRN ×3 (07:19→07:54)
--- NOTE | 2018-06-24 07:25 | Consultation-Cardiology ---
HPI-Cardiology Cardiology Consultation Date of Consultation 06/24/18 Date of Admission Time Seen by Provider: 07:22 Indication: Chest pain HPI 62 years old gentleman with history of coronary artery disease, had a stent done in 2011 at the [facility], hypertension, hyperlipidemia, diabetes mellitus and tobaccoism. Patient started having chest pain yesterday waxing and waning, admitted to the emergency room, reporting persistent chest pain this morning, did not improve after nitroglycerin or morphine. I will try additional dose of nitroglycerin. Denied any palpitation, syncope or near syncopal episode, history of GI bleed with esophageal ulcer Home Medications & Allergies Allergies: Coded Allergies: doxycycline (Verified Allergy, Severe, Rash, 06/24/18) levofloxacin (Verified Allergy, Severe, Rash, 06/24/18) Home Medication List Reviewed: Yes [id number] Hx Patient Social History Marital Status: Employed/Student: employed Alcohol Use: Rarely Uses Recreational Drug Use: No (PAST USE OF COCAINE AND MARIJUANA) Smoking Status: Current Everyday Smoker Type Used: Cigarettes Recent Foreign Travel: No Recent Infectious Disease Expo: No Recent Hopitalizations: No Physical Abuse Screen: No Sexual Abuse: No Immunizations Up To Date Tetanus Booster (TDap): Unknown Past Medical History Past medical history as described below Family Medical History Family Medical Hx Family history of heart disease Review of Systems Constitutional: no symptoms reported, see HPI EENTM: see HPI, no symptoms reported Respiratory: see HPI, cough, dyspnea on exertion; No hemoptysis, No orthopnea, No phlegm, No short of breath, No stridor, No wheezing, No other Cardiovascular: see HPI, chest pain; No edema, No Hx of Intervention, No palpitations, No syncope, No vascular heart diseas, No other Gastrointestinal: see HPI, dysphagia Genitourinary: no symptoms reported, see HPI Musculoskeletal: no symptoms reported, see HPI Skin: no symptoms reported, see HPI Psychiatric/Neurological: No Symptoms Reported, See HPI Reviewed Test Results Reviewed Test Results Lab Laboratory Tests Test 06/23/18 20:55 06/23/18 21:32 06/24/18 03:04 06/24/18 07:10 Range/Units White Blood Count 7.5 8.9 4.3-11.0 10^3/uL Red Blood Count 4.61 4.23 L 4.35-5.85 10^6/uL Hemoglobin 14.3 13.0 L 13.3-17.7 G/DL Hematocrit 42 39 L 40-54 % Mean Corpuscular Volume 91 92 80-99 FL Mean Corpuscular Hemoglobin 31 31 25-34 PG Mean Corpuscular Hemoglobin Concent 34 33 32-36 G/DL Red Cell Distribution Width 12.8 12.8 10.0-14.5 % Platelet Count 291 255 130-400 10^3/uL Mean Platelet Volume 10.6 H 11.1 H 7.4-10.4 FL Neutrophils (%) (Auto) 54 47 42-75 % Lymphocytes (%) (Auto) 33 40 12-44 % Monocytes (%) (Auto) 8 8 0-12 % Eosinophils (%) (Auto) 5 5 0-10 % Basophils (%) (Auto) 1 1 0-10 % Neutrophils # (Auto) 4.0 4.1 1.8-7.8 X 10^3 Lymphocytes # (Auto) 2.5 3.5 1.0-4.0 X 10^3 Monocytes # (Auto) 0.6 0.7 0.0-1.0 X 10^3 Eosinophils # (Auto) 0.4 H 0.4 H 0.0-0.3 10^3/uL Basophils # (Auto) 0.0 0.1 0.0-0.1 10^3/uL Prothrombin Time 13.0 12.2-14.7 SEC INR Comment 1.0 0.8-1.4 Activated Partial Thromboplast Time 26 24-35 SEC Sodium Level 141 141 135-145 MMOL/L Potassium Level 2.9 L 3.7 3.6-5.0 MMOL/L Chloride Level 105 105 98-107 MMOL/L Carbon Dioxide Level 21 23 21-32 MMOL/L Anion Gap 15 H 13 5-14 MMOL/L Blood Urea Nitrogen 4 L 5 L 7-18 MG/DL Creatinine 0.77 0.71 0.60-1.30 MG/DL Estimat Glomerular Filtration Rate > 60 > 60 BUN/Creatinine Ratio 5 7 Glucose Level 121 H 107 H 70-105 MG/DL Calcium Level 9.3 8.7 8.5-10.1 MG/DL Corrected Calcium 9.0 8.7 8.5-10.1 MG/DL Magnesium Level 1.8 1.8-2.4 MG/DL Total Bilirubin 0.5 0.4 0.1-1.0 MG/DL Aspartate Amino Transf (AST/SGOT) 10 10 5-34 U/L Alanine Aminotransferase (ALT/SGPT) 11 10 0-55 U/L Alkaline Phosphatase 66 59 40-136 U/L Total Creatine Kinase 96 30-200 U/L Creatine Kinase MB 2.0 <6.6 NG/ML Myoglobin 41.9 10.0-92.0 NG/ML Troponin I < 0.30 < 0.30 <0.30 NG/ML B-Type Natriuretic Peptide 62.6 <100.0 PG/ML Total Protein 7.3 6.5 6.4-8.2 GM/DL Albumin 4.4 4.0 3.2-4.5 GM/DL Amylase Level 21 L 25-125 U/L Lipase 22 8-78 U/L Serum Alcohol 12 H <10 MG/DL Urine Color YELLOW Urine Clarity CLEAR Urine pH 6.5 5-9 Urine Specific [place] 1.010 L 1.016-1.022 Urine Protein NEGATIVE NEGATIVE Urine Glucose (UA) NEGATIVE NEGATIVE Urine Ketones NEGATIVE NEGATIVE Urine Nitrite NEGATIVE NEGATIVE Urine Bilirubin NEGATIVE NEGATIVE Urine Urobilinogen NORMAL NORMAL MG/DL Urine Leukocyte Esterase NEGATIVE NEGATIVE Urine RBC (Auto) NEGATIVE NEGATIVE Urine RBC NONE /HPF Urine WBC NONE /HPF Urine Squamous Epithelial Cells RARE /HPF Urine Crystals NONE /LPF Urine Bacteria NONE /HPF Urine Casts NONE /LPF Urine Mucus NEGATIVE /LPF Urine Culture Indicated NO Urine Opiates Screen POSITIVE H NEGATIVE Urine Oxycodone Screen NEGATIVE NEGATIVE Urine Methadone Screen NEGATIVE NEGATIVE Urine Propoxyphene Screen NEGATIVE NEGATIVE Urine Barbiturates Screen NEGATIVE NEGATIVE Ur Tricyclic Antidepressants Screen NEGATIVE NEGATIVE Urine Phencyclidine Screen NEGATIVE NEGATIVE Urine Amphetamines Screen NEGATIVE NEGATIVE Urine Methamphetamines Screen NEGATIVE NEGATIVE Urine Benzodiazepines Screen NEGATIVE NEGATIVE Urine Cocaine Screen NEGATIVE NEGATIVE Urine Cannabinoids Screen NEGATIVE NEGATIVE Triglycerides Level 110 <150 MG/DL Cholesterol Level 149 < 200 MG/DL LDL Cholesterol Direct 89 1-129 MG/DL VLDL Cholesterol 22 5-40 MG/DL HDL Cholesterol 38 L 40-60 MG/DL Physical Exam Vital Signs Vital Signs - First Documented 06/23/18 06/23/18 23:19 23:30 Temp 97.9 Resp 19 Pulse Ox 97 O2 Flow Rate 2.00 Capillary Refill : Less Than 3 Seconds Height, Weight, BMI Height: 5'9.00" Weight: 185lbs. 4.0oz. [id number]; 27.4 BMI Method:Stated General Appearance: No Apparent Distress, WD/WN Eyes: Bilateral Eye Normal Inspection, Bilateral Eye PERRL, Bilateral Eye EOMI HEENT: PERRL/EOMI, TMs Normal, Normal ENT Inspection, Pharynx Normal Neck: Full Range of Motion, Normal Inspection, Non Tender, Supple, Carotid Bruit Respiratory: Chest Non Tender, Lungs Clear, Normal Breath Sounds, No Accessory Muscle Use, No Respiratory Distress Cardiovascular: Regular Rate, Rhythm, No Edema, No Gallop, No JVD, No Murmur, Normal Peripheral Pulses Gastrointestinal: Normal Bowel Sounds, No Organomegaly, No Pulsatile Mass, Non Tender, Soft Back: Normal Inspection, No CVA Tenderness, No Vertebral Tenderness Extremity: Normal Capillary Refill, Normal Inspection, Normal Range of Motion, Non Tender, No Calf Tenderness, No Pedal Edema Neurologic/Psychiatric: Alert, Oriented x3, No Motor/Sensory Deficits, Normal Mood/Affect Skin: Normal Color, Warm/Dry Lymphatic: No Adenopathy A/P-Cardiology Admission Diagnosis Anterior chest wall pain Coronary artery disease Hypertension Hyperlipidemia Assessment/Plan Chest pain, nonspecific etiology, atypical in presentation, persistent pain, had extensive history and multiple risk factors. Patient cannot have a stress test due to the active chest pain, I'll try additional nitroglycerin then we'll proceed with cardiac catheterization possible PTCA. Coronary artery disease history of stent to the LAD done in 2011 at the [facility]. Planning to proceed with cardiac catheterization due to active chest pain Hypertension, restart home medication monitor blood pressure Hyperlipidemia, evaluate lipid Diabetes mellitus, followed and managed by primary care physician History of GI bleed with esophageal ulcer which could be the cause of his chest pain, maintained on PPI. Tobaccoism, educated on smoking cessation High risk for sleep apnea, seen by Dr. Jay Clinical Quality Measures AMI/AHF: ASA po Prior to arrival: No DVT/VTE Risk/Contraindication: Risk Factor Score Per Nursin RFS Level Per Nursing on Admit: 3=High KAREEM GÓMEZ MD Jun 24, 2018 07:25
--- NOTE | 2018-06-24 07:26 | Cardiac Procedure Note-CS/ASA ---
Pre-Procedure Note Pre-Op Procedure Note H&P Reviewed The H&P was reviewed, patient examined and no changes noted. Date H&P Reviewed: Jun 24, 2018 Time H&P Reviewed: : Conscious Sedation Pre-Proced Time Reviewed: : ASA Class: 3 Airway Mallampati Classification: (robinson appropriate class) I. II. III, IV Lungs Heart ASA score ASA 1: a normal healthy patient ASA 2: a patient with a mild systemic disease (mid diabetes, controlled hypertension, obesity x ASA 3: a patient with a severe systemic disease that limits activity (angina , COPD, prior Myocardial infarction) ASA 4: a patient with an incapacitating disease that is a constant threat to life (CHF, renal failure) ASA 5: a moribund patient not expected to survive 24 hrs. (ruptured aneurysm) ASA 6: a declared brain patient whose organs are being harvested. For emergent operations, add the letter E after the classification Grade 3 Sedation Plan: Analgesia, Amnesia, Plan communicated to team members, Discussed options with patient/fam, Discussed risks with patient/fam Note The patient is an appropriate candidate to undergo the planned procedure, sedation, and anesthesia. The patient immediately re-assessed prior to indication. KAREEM GÓMEZ MD Jun 24, 2018 07:26
[2018-06-24] MEDS ORDERED: NS IV 1000 ML 1,000 ML IV SCH ×2 (07:30→12:06)
[2018-06-24 07:38] LABS: ABG BASE EXCESS 1.7 MMOL/L (-2.5-2.5); ABG OXYGEN SATURATION 96 % (94-100); ABG PCO2 68 MMHG (35-45); ABG PO2 87 MMHG (79-93); ABG TCO2 30.6 MMOL/L (21.0-31.0)
[2018-06-24 07:39] LABS: ABG PH 7.24 (7.37-7.43); ALLENS TEST YES-POS; INSPIRED O2 4L; PATIENT TEMP 97.5; VENTILATOR NO
[2018-06-24] MEDS ORDERED: MIDAZOLAM 5 MG/5 ML (VERSED) VIAL ONE ×2 (08:00→11:44)
[2018-06-24] MEDS ORDERED: fentaNYL INJECTION 100 MCG/2 ML AMP ONE (08:00)
[2018-06-24] MEDS ORDERED: diphenhydrAMINE 50 MG/ML INJ (BENADRYL) ONE (08:00)
[2018-06-24] MEDS: RT-ALBUTEROL/IPRATROPIUM 3 ML (DUONEB) VIAL INH SCH ×3 (08:46→19:18)
[2018-06-24] MEDS: RT-ADVAIR HFA 115/21 MCG PER PUFF IH SCH ×2 (08:46→19:19)
[2018-06-24] MEDS ORDERED: ASPIRIN E.C. 81 MG (ECOTRIN) TAB PO SCH (09:00)
[2018-06-24] MEDS ORDERED: PATIENT MAY USE OWN MEDS, ALL PO SCH (12:15)
[2018-06-24] MEDS ORDERED: CETI10TA20 PO (13:36)
[2018-06-24] MEDS ORDERED: CYAN500T2 PO (13:36)
[2018-06-24] MEDS ORDERED: DULO60CA58 PO (13:36)
[2018-06-24] MEDS ORDERED: TAMS0.4C98 PO (13:36)
[2018-06-24] MEDS ORDERED: HYDR-3812 PO (13:36)
[2018-06-24] MEDS ORDERED: PANT40TA2 PO (13:36)
[2018-06-24] MEDS ORDERED: GABA-488 PO ×2 (13:36)
[2018-06-24] MEDS ORDERED: PROM25TA14 PO ×2 (13:36→14:01)
[2018-06-24] MEDS ORDERED: APIX2.5T PO (13:36)
[2018-06-24] MEDS ORDERED: MONT10TA21 PO (13:36)
[2018-06-24] MEDS ORDERED: LURA80TA3 PO (13:36)
[2018-06-24] MEDS ORDERED: ASPI-983 PO (13:36)
[2018-06-24] MEDS ORDERED: IPRA3AMP31 IH (13:47)
[2018-06-24] MEDS ORDERED: BACL20TA PO (14:01)
[2018-06-24] MEDS ORDERED: METF-399 PO (14:01)
[2018-06-24] MEDS ORDERED: FLUT16SP22 NS (14:01)
[2018-06-24] MEDS ORDERED: PRAV40TA2 PO (14:01)
[2018-06-24] MEDS ORDERED: TOPI50TA37 PO (14:01)
--- NOTE | 2018-06-24 15:07 | History & Physical-Hospitalist ---
History of Present Illness HPI/Chief Complaint The patient is a 62-year-old white male who presented to the emergency room last evening with complaints of unrelenting chest pain. He is normally seen by the [facility]. He has a past history and 2012 of angiography and stenting of the coronary arteries. He is a diabetic with hyperlipidemia and hypertension. His states that he is exhibited symptoms of sleep apnea for some years. He often seems to stop breathing and she has to elbow him. She hopes that he will be motivated to seek testing and treatment. He had a angiography earlier today which showed no significant in her reasonable lesions. The nursing staff states that when he sleeps his SaO2 drops down into the 70s. He has just returned from angiography and is still somewhat sedated. Date Seen 06/24/18 Time Seen by Provider: 15:02 Attending Physician Matthias Munguia MD PCP No,Local Physician Referring Physician Date of Admission Jun 23, 2018 at 22:43 Home Medications & Allergies Home Medications Reviewed patient Home Medication Reconciliation performed by pharmacy medication reconciliations automotive refinish technician and/or nursing. Patients Allergies have been reviewed. Allergies Allergies Coded Allergies doxycycline (Verified Allergy, Severe, Rash, 06/24/18) levofloxacin (Verified Allergy, Severe, Rash, 06/24/18) Past Bmbxhnv-Qyutvj-Mrhwkl Hx Past Med/Social Hx: Reviewed Nursing Past Med/Soc Hx Patient Social History Marrital Status: Employed/Student: employed Alcohol Use: Regular Use (3-4 DRINKS A DAY ) Number of Drinks Today: 2 Alcohol Beverage of Choice: Beer, Whiskey Recreational Drug Use: Yes (HX OF COCAINE, THC USE. DENIES IV USE) Drug of Choice: HX O COCAINE, THC USE. DENIES IV USE Smoking Status: Current Everyday Smoker (1 PPD) Type Used: Cigarettes Physical Abuse Screen: No Sexual Abuse: No Recent Foreign Travel: No Contact w/other who traveled: No Recent Hopitalizations: No Recent Infectious Disease Expo: No Immunizations Up To Date Tetanus Booster (TDap): Unknown Pediatric: No Seasonal Allergies Seasonal Allergies: No Past Medical History Surgeries: Cardiac, Coronary Stent Currently Using CPAP: No Currently Using BIPAP: No Cardiac: Coronary Artery Disease, Heart Attack, High Cholesterol Sexually Transmitted Disease: No HIV/AIDS: No Genitourinary: Prostate Problems Gastrointestinal: Gastroesophageal Reflux, Gastrointestinal Bleed, Esophagitis , Ulcer Musculoskeletal: Arthritis, Chronic Back Pain HEENT: Cataract Loss of Vision: Bilateral Hearing Impairment: Hard of Hearing Cancer: Colon Did You Recieve Any Treatments: Yes What Type of Treatment Did You: Chemotherapy History of Blood Disorders: No Adverse Reaction to Blood Lr: No Review of Systems Constitutional: see HPI EENTM: no symptoms reported Respiratory: see HPI Cardiovascular: see HPI, chest pain Gastrointestinal: no symptoms reported Genitourinary: no symptoms reported Musculoskeletal: no symptoms reported Skin: no symptoms reported Psychiatric/Neurological: No Symptoms Reported Physical Exam Physical Exam Vital Signs Vital Signs - First Documented 06/23/18 06/23/18 23:19 23:30 Temp 97.9 Resp 19 Pulse Ox 97 O2 Flow Rate 2.00 Capillary Refill : Less Than 3 Seconds Height, Weight, BMI Height: 5'9.00" Weight: 185lbs. 4.0oz. 84.424806as; 27.4 BMI Method:Stated General Appearance: Other (somnolent but arouses when spoken to) Eyes: Bilateral Eye Normal Inspection HEENT: Normal ENT Inspection Neck: Normal Inspection Respiratory: Chest Non Tender, Lungs Clear, Normal Breath Sounds, No Accessory Muscle Use, No Respiratory Distress Cardiovascular: Regular Rate, Rhythm, No Edema, No Gallop, No JVD, No Murmur, Normal Peripheral Pulses Gastrointestinal: Normal Bowel Sounds, No Organomegaly, No Pulsatile Mass, Non Tender, Soft Extremity: Normal Capillary Refill, Normal Inspection, Normal Range of Motion, Non Tender, No Calf Tenderness, No Pedal Edema Neurologic/Psychiatric: Alert, Oriented x3, No Motor/Sensory Deficits, Normal Mood/Affect Skin: Normal Color, Warm/Dry Lymphatic: No Adenopathy Results Results/Procedures Labs Laboratory Tests 06/23/18 20:55 06/24/18 03:04 Patient resulted labs reviewed. Assessment/Plan Admission Diagnosis Chest pain. 2.previous history of coronary artery disease with stenting. 3.diabetes. 4.history and symptomatology suggesting sleep apnea Admission Status: Observation Assessment and Plan Consider early discharge. He will be advised that testing for sleep apnea and treatment if advised would be a benefit to his family. Clinical Quality Measures AMI/AHF: ASA po Prior to arrival: No DVT/VTE Risk/Contraindication: Risk Factor Score Per Nursin RFS Level Per Nursing on Admit: 3=High MATTHIAS MUNGUIA MD Jun 24, 2018 15:07
[2018-06-24] MEDS ORDERED: RT-ALBUTEROL/IPRATROPIUM 3 ML (DUONEB) VIAL IH PRN (15:15)
--- NOTE | 2018-06-24 16:04 | Cardiac Cath Report ---
Cardiac Cath Report Physician (s)/Mortician Helper (s) Physician KAREEM GÓMEZ MD Pre-Procedure Diagnosis Pre-Procedure Diagnosis: chest pain, coronary artery disease Post-Procedure Note Procedure Start Date: Jun 24, 2018 Name of Procedure: Left heart catheterization Right lower extremity runoff Findings/Procedure Note PROCEDURE NOTE: After explaining the procedure to the patient, all pros and cons were explained , all questions were answered. The patient signed the consent and then he was placed on the cardiac catheterization laboratory. Groin was prepped SL fashion local anesthesia was used. Sheath placed in the right femoral artery. I had difficulties advancing the J-wire, a used to stork wire through the right common iliac artery and long exchange wire during the procedure. Kevin right and left catheter were used to access the coronary system. Pigtail was used to access the left ventricular cavity, pressure was measured, no left ventricular gram was done. The pigtail catheter was pulled down to the right common iliac artery and runoff to the right lower except he was done down to the mid right SFA. At the end of the procedure the sheath was removed. Closure device was used FINDINGS: Hemodynamics LV 130/12, end-diastolic pressure of 12 Aorta 130/67 mean of 92 ANATOMY: Left Main is free of obstructive disease Left Anterior Descending has a patent stent with mild disease distally Left Circumflex has mild to moderate disease proximally, nonobstructive disease Ramus intermedius has moderate disease fairly smaller artery. Right Coronory Artery is dominant artery with mild disease nonobstructive disease Right lower except he runoff showed mild aneurysmal dilatation with tortuosity and what appeared to be moderate stenosis at the right common iliac artery, good flow down to the mid SFA CONCLUSION: 1. Patent stent in the LAD with [id number] disease in the coronary system nonobstructive disease 2. Ramus intermedius has moderate disease fairly smaller artery. Medical therapy is recommended 3. Normal left ventricular end-diastolic pressure 4. 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
[2018-06-24] MEDS ORDERED: NON-FORMULARY MEDICATION 1 EA EA (Montelukast Sodium (Singulair) 10 MG) PO SCH (21:00)
[2018-06-24] MEDS ORDERED: PANTOPRAZOLE 40 MG (PROTONIX) TAB PO SCH (21:00)
[2018-06-24] MEDS ORDERED: TAMSULOSIN 0.4 MG (FLOMAX) CAP PO SCH (21:00)
[2018-06-24] MEDS ORDERED: GABAPENTIN 300 MG (NEURONTIN) CAP PO SCH (21:00)
[2018-06-24] MEDS ORDERED: ACETAMINOPHEN 325 MG TABLET PO ONE (21:00)
[2018-06-24] MEDS ORDERED: NON-FORMULARY MEDICATION 1 EA EA (Metformin HCl 1,000 MG) PO SCH (21:00)
[2018-06-24] MEDS ORDERED: MONTELUKAST 10 MG (SINGULAIR) TAB PO SCH (21:00)
[2018-06-24] MEDS ORDERED: metFORMIN 500 MG (GLUCOPHAGE) TAB PO SCH (21:00)
[2018-06-25] MEDS ORDERED: ASPIRIN E.C. 81 MG (ECOTRIN) TAB PO SCH (09:00)
== END 2018-06-24 21:30 | disposition left against medical advice (07) ==
LOC: EDUNIT# 20:47 → ER 20:49 → ICU 22:43 → UNDOADMOB 22:43 → ICU 23:24 → UNDOADMOB 23:24 → 4TH 06-24 17:44 → ICU 06-24 17:44 → CSD 06-24 21:56 → 4TH 06-24 21:56 → UNDODISOB 06-29 23:10
PROVIDERS: ADMIT Internal Medicine; ATTEND Internal Medicine
DX: R07.89 Other chest pain (principal); J43.9 Emphysema, unspecified; G47.36 Sleep related hypoventilation in conditions classified elsewhere; K22.10 Ulcer of esophagus without bleeding; I25.10 Atherosclerotic heart disease of native coronary artery without angina pectoris; E11.51 Type 2 diabetes mellitus with diabetic peripheral angiopathy without gangrene; I10 Essential (primary) hypertension; F17.210 Nicotine dependence, cigarettes, uncomplicated; E78.5 Hyperlipidemia, unspecified; K21.9 Gastro-esophageal reflux disease without esophagitis; J42 Unspecified chronic bronchitis; I25.2 Old myocardial infarction; Z85.038 Personal history of other malignant neoplasm of large intestine; Z92.21 Personal history of antineoplastic chemotherapy; Z95.5 Presence of coronary angioplasty implant and graft; Z79.01 Long term (current) use of anticoagulants; Z79.82 Long term (current) use of aspirin; Z79.84 Long term (current) use of oral hypoglycemic drugs; Z53.21 Procedure and treatment not carried out due to patient leaving prior to being seen by health care provider
CPT/HCPCS: 36415; 36600; 71045; 71275; 80053; 80061; 80306; 80320; 81000; 82150; 82550; 82553; 82805; 83690; 83735; 83874; 83880; 84484; 85025; 85610; 85730; 93005; 93041; 93306; 93458; 94640; 94660; 96374; 96376

== ENCOUNTER 2022-06-23 19:59 | Emergency (ER) | payer MEDICAID, OTHER ==
[~2022-06-23] VITALS: Ht 175.2 cm; Wt 75.4 kg
[~2022-06-23 19:59] MED LIST: ACHD5005 PO; APIX2.5T PO; ASPI-1238 PO; BACL20TA PO; CETI10TA49 PO; CYAN500T8 PO; DULO60CA59 PO; FLUT16SP22 NS; GABA-488 PO; IPRA3AMP31 IH; LURA80TA3 PO; METF-399 PO; MONT10TA21 PO; PANT40TA2 PO; PRAV40TA2 PO; PROM25TA14 PO; TMSL.4C PO; TOPI50TA37 PO
[2022-06-23] MEDS ORDERED: methylPREDNISolone 125 MG (Solu-MEDROL) VIAL IVP STA (20:09)
[2022-06-23 20:18] LABS: BASOPHILS % (AUTO) 0 % (0-10); EOSINOPHILS % (AUTO) 0 % (0-10); HEMATOCRIT 35 % (40-54); HEMOGLOBIN 11.6 g/dL (13.3-17.7); LYMPHOCYTES # (AUTO) 0.9 10^3/uL (1.0-4.0); LYMPHOCYTES % (AUTO) 11 % (12-44); MEAN CORPUSCULAR HEMOGLOBIN 29 pg (25-34); MEAN CORPUSCULAR HGB CONC 33 g/dL (32-36); MEAN CORPUSCULAR VOLUME 86 fL (80-99); MEAN PLATELET VOLUME 9.9 fL (9.0-12.2); MONOCYTES # (AUTO) 0.3 10^3/uL (0.0-1.0); MONOCYTES % (AUTO) 3 % (0-12); NEUTROPHILS # (AUTO) 6.9 10^3/uL (1.8-7.8); NEUTROPHILS % (AUTO) 85 % (42-75); PLATELET COUNT 262 10^3/uL (130-400); WHITE BLOOD COUNT 8.1 10^3/uL (4.3-11.0)
--- NOTE | 2022-06-23 20:22 | ED General ---
General Stated Complaint: SOB, GROIN PAIN Source of Information: Patient History of Present Illness Date Seen by Provider: Jun 23, 2022 Time Seen by Provider: 20:01 Initial Comments 66-year-old male presenting with complaints of increased shortness of breath over the last few days. He also complains of few months of groin pain. He has been getting tightness in his chest. He states he feels like he has had a fever but has not actually taken his temperature. He has known COPD and is oxygen dependent at 2 to 3 L/min at home. He has recently had COVID and influenza few months ago and was hospitalized. After that hospitalization is when he got started on the supplemental oxygen. He just moved to [facility] about a month ago. [facility] Timing/Duration: 3-4 Days Severity: Severe Modifying Factors: worse with Movement Associated Systoms: Chest Pain (tightness), Cough; No Diaphoresis; Fever/Chills (subjective); No Headaches; Malaise; No Nausea/Vomiting, No Rash, No Seizure; Shortness of Air; No Syncope; Weakness Allergies and Home Medications Allergies Coded Allergies: doxycycline (Verified Allergy, Severe, Rash, 06/24/18) levofloxacin (Verified Allergy, Severe, Rash, 06/24/18) Patient Home Medication List Home Medication List Reviewed: Yes Apixaban (Eliquis) 2.5 Mg Tablet, 2.5 MG PO HS, (Reported) Entered as Reported by: ROSA REED on 06/24/18 1336 Aspirin (Aspirin EC) 81 Mg Tablet.dr, 81 MG PO HS, (Reported) Entered as Reported by: ROSA REED on 06/24/18 1336 Azithromycin (Azithromycin) 500 Mg Tablet, 500 MG PO DAILY Prescribed by: MICHEL FARLEY on 06/23/22 2241 Baclofen (Baclofen) 20 Mg Tablet, 10 MG PO TID PRN for MUSCLE SPASMS, (Reported) Entered as Reported by: ROSA REED on 06/24/18 1401 Cetirizine HCl (Zyrtec) 10 Mg Tablet, 10 MG PO HS, (Reported) Entered as Reported by: ROSA REED on 06/24/18 1336 Cyanocobalamin (Vitamin B-12) (Vitamin B-12) 500 Mcg Tablet, 1,000 MCG PO HS, (Reported) Entered as Reported by: ROSA REED on 06/24/18 1336 Duloxetine HCl (Duloxetine HCl) 60 Mg Capsule.dr, 60 MG PO HS, (Reported) Entered as Reported by: ROSA REED on 06/24/18 1336 Fluticasone Propionate (Fluticasone Propionate) 16 Gm [place].susp, 2 SPRAYS NS HS PRN for ALLERGIES, (Reported) Entered as Reported by: ROSA REED on 06/24/18 1401 Gabapentin (Gabapentin) 300 Mg Capsule, 600 MG PO HS, (Reported) Entered as Reported by: ROSA REED on 06/24/18 1336 Hydrocodone Bit/Acetaminophen (Lortab 5 Mg Tablet) 1 Each Tablet, 1 TAB PO TID PRN for PAIN-MODERATE, (Reported) Entered as Reported by: ROSA REED on 06/24/18 133 Ipratropium/Albuterol Sulfate (Iprat-Albut 0.5-3(2.5) mg/3 ml) 3 Ml Ampul.neb, 3 ML IH Q6H PRN for SHORTNESS OF BREATH, (Reported) Entered as Reported by: ROSA REED on 06/24/18 1347 Lurasidone HCl (Latuda) 80 Mg Tablet, 80 MG PO HS, (Reported) Entered as Reported by: ROSA REED on 06/24/18 133 Metformin HCl (Metformin HCl) 1,000 Mg Tablet, 1,000 MG PO HS, (Reported) Entered as Reported by: ROSA REED on 06/24/18 1401 Montelukast Sodium (Singulair) 10 Mg Tablet, 10 MG PO HS, (Reported) Entered as Reported by: ROSA REED on 06/24/18 133 Pantoprazole Sodium (Protonix) 40 Mg Tablet.dr, 40 MG PO HS, (Reported) Entered as Reported by: ROSA REED on 06/24/18 133 Pravastatin Sodium (Pravastatin Sodium) 40 Mg Tablet, 20 MG PO HS, (Reported) Entered as Reported by: ROSA REED on 06/24/18 1401 Prednisone (Prednisone) 20 Mg Tab, 40 MG PO DAILY Prescribed by: MICHEL FARLEY on 06/23/222240 Promethazine HCl (Promethazine Tablet) 25 Mg Tablet, 25 MG PO Q6H PRN for NAUSEA/VOMITING-2ND LINE, (Reported) Entered as Reported by: ROSA REED on 06/24/18 1336 Promethazine HCl (Promethazine Tablet) 25 Mg Tablet, 25 MG PO HS, (Reported) Entered as Reported by: ROSA REED on 06/24/18 1401 Tamsulosin HCl (Flomax) 0.4 Mg Cap, 0.4 MG PO HS, (Reported) Entered as Reported by: ROSA REED on 06/24/18 1336 Topiramate (Topamax) 50 Mg Tablet, 50 MG PO HS, (Reported) Entered as Reported by: ROSA REED on 06/24/18 1401 Review of Systems Review of Systems Constitutional: see HPI EENTM: nose congestion; No ear discharge, No blurred vision, No epistaxis Respiratory: cough, dyspnea on exertion, short of breath; No stridor; wheezing Cardiovascular: chest pain (tightness) Gastrointestinal: abdominal pain (low abdominal pain and bilateral groin pain); No nausea, No vomiting Genitourinary: No dysuria Musculoskeletal: no symptoms reported Skin: No rash Psychiatric/Neurological: Anxiety; Denies Headache Past Uukqrnb-Osdozg-Tiydvl Hx Immunizations Up To Date Tetanus Booster (TDap): Unknown PED Vaccines UTD: No Seasonal Allergies Seasonal Allergies: No Past Medical History Surgery/Hospitalization HX: COPD Surgeries: Yes (CARDIAC CATH WITH STENT X 1) Cardiac, Coronary Stent Respiratory: No Pneumonia, Chronic Bronchitis, COPD, Emphysema Currently Using CPAP: No Currently Using BIPAP: No Cardiac: Yes Coronary Artery Disease, Heart Attack, High Cholesterol Neurological: No Sexually Transmitted Disease: No HIV/AIDS: No Genitourinary: No Prostate Problems Gastrointestinal: Yes Gastroesophageal Reflux, Gastrointestinal Bleed, Esophagitis, Ulcer Musculoskeletal: No Arthritis, Chronic Back Pain Endocrine: No HEENT: No Cataract Loss of Vision: Bilateral Hearing Impairment: Hard of Hearing Cancer: Yes Colon Did You Recieve Any Treatments: Yes What Type of Treatment Did You: Chemotherapy Psychosocial: No Integumentary: No Blood Disorders: No Adverse Reaction/Blood Tranf: No Physical Exam Vital Signs Vital Signs - First Documented 06/23/22 19:59 Temp 36.6 Pulse 114 Resp 22 B/P (MAP) 114/81 (92) Pulse Ox 97 O2 Delivery Nasal Cannula O2 Flow Rate 2.00 Capillary Refill : Height, Weight, BMI Height: 5'9.00" Weight: 185lbs. 4.0oz. [id number]; 27.4 BMI Method:Stated General Appearance: Chronically ill, Mild Distress HEENT: PERRL/EOMI, Pharynx Normal Neck: Full Range of Motion, Normal Inspection, Non Tender, Supple Respiratory: Chest Non Tender, Accessory Muscle Use, Decreased Breath Sounds; No Stridor; Wheezing Cardiovascular: No Murmur, Normal Peripheral Pulses, Tachycardia Gastrointestinal: Normal Bowel Sounds, No Pulsatile Mass, Non Tender, Soft Rectal: Deferred Extremity: Normal Capillary Refill, Normal Inspection, No Calf Tenderness, No Pedal Edema Neurologic/Psychiatric: Alert, Oriented x3 Skin: Warm/Dry, Pallor Progress/Results/Core Measures Suspected Sepsis SIRS Temperature: Pulse: Respiratory Rate: Laboratory Tests 06/23/22 20:06: White Blood Count 8.1 Blood Pressure / Mean: Laboratory Tests 06/23/22 20:06: Creatinine 0.47L, INR Comment 0.9, Platelet Count 262, Total Bilirubin 0.5 Results/Orders Lab Results Laboratory Tests Test 06/23/22 20:06 Range/Units White Blood Count 8.1 4.3-11.0 10^3/uL Red Blood Count 4.05 L 4.30-5.52 10^6/uL Hemoglobin 11.6 L 13.3-17.7 g/dL Hematocrit 35 L 40-54 % Mean Corpuscular Volume 86 80-99 fL Mean Corpuscular Hemoglobin 29 25-34 pg Mean Corpuscular Hemoglobin Concent 33 32-36 g/dL Red Cell Distribution Width 13.4 10.0-14.5 % Platelet Count 262 130-400 10^3/uL Mean Platelet Volume 9.9 9.0-12.2 fL Immature Granulocyte % (Auto) 0 % Neutrophils (%) (Auto) 85 H 42-75 % Lymphocytes (%) (Auto) 11 L 12-44 % Monocytes (%) (Auto) 3 0-12 % Eosinophils (%) (Auto) 0 0-10 % Basophils (%) (Auto) 0 0-10 % Neutrophils # (Auto) 6.9 1.8-7.8 10^3/uL Lymphocytes # (Auto) 0.9 L 1.0-4.0 10^3/uL Monocytes # (Auto) 0.3 0.0-1.0 10^3/uL Eosinophils # (Auto) 0.0 0.0-0.3 10^3/uL Basophils # (Auto) 0.0 0.0-0.1 10^3/uL Immature Granulocyte # (Auto) 0.0 0.0-0.1 10^3/uL Prothrombin Time 12.8 12.2-14.7 SEC INR Comment 0.9 0.8-1.4 Activated Partial Thromboplast Time 24 24-35 SEC Sodium Level 129 L 135-145 MMOL/L Potassium Level 4.3 3.6-5.0 MMOL/L Chloride Level 90 L 98-107 MMOL/L Carbon Dioxide Level 26 21-32 MMOL/L Anion Gap 13 5-14 MMOL/L Blood Urea Nitrogen 7 7-18 MG/DL Creatinine 0.47 L 0.60-1.30 MG/DL Estimat Glomerular Filtration Rate 116 BUN/Creatinine Ratio 15 Glucose Level 291 H 70-105 MG/DL Calcium Level 9.8 8.5-10.1 MG/DL Corrected Calcium 9.5 8.5-10.1 MG/DL Magnesium Level 1.1 *L 1.6-2.4 MG/DL Total Bilirubin 0.5 0.1-1.0 MG/DL Aspartate Amino Transf (AST/SGOT) 10 5-34 U/L Alanine Aminotransferase (ALT/SGPT) 9 0-55 U/L Alkaline Phosphatase 69 40-136 U/L Troponin I < 0.30 <0.30 NG/ML Pro-B-Type Natriuretic Peptide 193.6 H <125.0 PG/ML Total Protein 7.5 6.4-8.2 GM/DL Albumin 4.4 3.2-4.5 GM/DL Lipase 16 8-78 U/L Influenza Type A (RT-PCR) Not Detected Not Detecte Influenza Type B (RT-PCR) Not Detected Not Detecte SARS-CoV-2 RNA (RT-PCR) Not Detected Not Detecte My Orders Orders - MICHEL FARLEY MD Cbc With Automated Diff (06/23/22 20:09) Magnesium (06/23/22 20:09) Ekg Tracing (06/23/22 20:09) Comprehensive Metabolic Panel (06/23/22 20:09) Protime With Inr (9/10/22 20:09) Partial Thromboplastin Time (06/23/22 20:09) O2 (06/23/22 20:09) Monitor-Rhythm Ecg Trace Only (06/23/22 20:09) Ed Iv/Invasive Line Start (06/23/22 20:09) Lipase (06/23/22 20:09) Troponin I Fs (06/23/22 20:09) Probnp Fs (06/23/22 20:09) Methylprednisolone Sod Succ (Solu-Medrol (06/23/22 20:09) Ct Chest/Abdomen/Pelvis Wo (06/23/22 20:09) Covid 19 Inhouse Test (06/23/22 20:11) Influenza A And B By Pcr (06/23/22 20:11) Ketorolac Injection (Toradol Injection) (06/23/22 20:32) Magnesium 1 Gm/100 Ml Ivpb (Magnesium Espinal (06/23/22 20:43) Azithromycin Tablet (Zithromax Tablet) (06/23/22 22:36) Vital Signs/I&O 06/23/22 06/23/22 06/23/22 19:59 19:59 22:51 Temp 36.6 Pulse 114 83 Resp 22 20 B/P (MAP) 114/81 (92) 110/86 Pulse Ox 97 97 O2 Delivery Nasal Cannula Nasal Cannula Nasal Cannula O2 Flow Rate 2.00 2.00 2.00 06/24/22 00:00 Intake Total 100 ml Balance 100 ml Capillary Refill : Progress Note #1: Progress Note Obtain basic labs and urine. Electrocardiogram to evaluate his heart and complaint of chest tightness and shortness of breath. CT imaging of the chest abdomen and pelvis since he is complaining of chest pain, shortness of breath, chest tightness, lower abdominal pain, bilateral groin pain. Cardiac enzymes and BNP. Ordered a nasal swab for COVID and influenza. Solu-Medrol 125 mg IV x1 for his shortness of breath. Differential diagnosis includes COPD exacerbation, COVID, influenza, pneumonia, myocardial infarction Progress Note #2: Progress Note CBC appears stable without acute significant abnormality to account for symptoms. Chemistry panel stable without acute significant abnormality. His CT scan showed a mass in the left lung. There was no definite pneumonia. He does extensive chronic COPD changes to his lungs. Nothing acute in the abdomen or pelvis to account for his groin pain and lower abdomen pain. He also had a negative COVID and influenza swab. Patient denied knowledge of the lung mass when reviewing results with him. Advised that he would need to follow-up with his doctor in the would need to do additional testing especially if this was something new and not seen on previous imaging. Since he recently had COVID and flu and was admitted to the hospital they should have imaging to be able to compare. He currently does not require admission for treatment at this time. We will continue with a steroid burst and do a short course of Zithromax to help cover for atypical infections. He has a telehealth visit with his primary on Saturday so we will have him recheck with them then about his symptoms. ECG Initial ECG Impression Date: Jun 23, 2022 Initial ECG Impression Time: 20:16 Initial ECG Rate: 105 Initial ECG Rhythm: S.Tach Initial ECG Comparisson: Unchanged Comment Sinus tachycardia with a heart rate of 105 bpm. MI interval [address] elevation. Right bundle branch block. QT interval 348 ms with a QTc interval 409 ms. Overall appears similar to prior tracing from 2018 other than his heart rate is faster currently. Diagnostic Imaging Diagonstic Imaging: CT Plain Films/CT/US/NM/MRI: chest, abdomen, pelvis Comments [facility], [place] NAME: ASHWIN YO [facility] REC#: [id number] PT STATUS: REG ER : 1955 PHYSICIAN: MICHEL FARLEY MD ADMIT DATE: 06/23/22/ER FS Signed Date of Exam:06/23/22 CT CHEST/ABDOMEN/PELVIS WO INDICATION: Shortness of breath and abdominal pain, history of COPD, intermittent vomiting. TECHNIQUE: Multiple contiguous axial images were obtained through the chest, abdomen, and pelvis without the use of intravenous contrast. Auto Exposure Controls were utilized during the CT exam to meet ALARA standards for radiation dose reduction. COMPARISON: 06/23/2018. CT CHEST FINDINGS: There are no enlarged mediastinal or hilar nodes. There are no enlarged axillary nodes or chest wall lesions. There is no pleural or pericardial fluid. There is no overt bony abnormality in the chest. Lung parenchymal windows demonstrate diffuse emphysematous changes. There is an irregular lesion in the left upper lobe, measuring about 1.7 x 1.2 x 2.3 cm. This lesion is new compared to the prior study and is suspicious for pulmonary neoplasm. There is some peribronchial thickening in the lung bases. No other pulmonary parenchymal mass is seen. There is no overt consolidation. There is some scarring in the right lateral base. CT ABDOMEN/PELVIS FINDINGS: The liver shows no focal lesion without contrast. Gallbladder appears normal. The spleen is not enlarged. The adrenals and pancreas appear unremarkable. The kidneys, bilaterally, show no hydronephrosis. There are nonocclusive stones in the left kidney. There is no retroperitoneal mass or adenopathy. There is no ascites or abnormal fluid collection. There is no pelvic mass or lymphadenopathy. There are diffuse sigmoid diverticuli. There is prominent stool in the colon but no overt bowel obstruction. IMPRESSION: 1. CT chest shows severe emphysematous change throughout both lungs. There is a new irregular lesion in the left upper lobe, as measured above, suspicious for pulmonary neoplasm. PET imaging may be helpful for further evaluation. There is some peribronchial thickening in the lung bases. There is no consolidation or pleural fluid. 2. CT abdomen and pelvis demonstrates no soft tissue mass or adenopathy. There are nonocclusive stones in the left kidney. There are scattered colonic diverticuli but no overt bowel obstruction. Dictated by: Dictated on workstation # [id number] Dict: 06/23/222041 Trans: 06/23/222123 [facility] [id number] Interpreted by: RUBÉN LUDWIG MD Electronically signed by: RUBÉN LUDWIG MD 06/23/222123 Reviewed: Reviewed by Me Departure Impression Primary Impression: COPD with exacerbation Additional Impressions: Bilateral groin pain Chest tightness Hypomagnesemia Mass of left lung Disposition: 01 HOME, SELF-CARE Condition: Stable Departure-Patient Inst. Decision time for Depature: 22:37 Referrals: NO,LOCAL PHYSICIAN (PCP) Primary Care Physician [facility] Patient Instructions: Pelvic Pain ED, COPD Exacerbation, Adult ED, Chest Pain, Adult ED, COPD Diet, Incidental Findings, Low Magnesium Level (DC) Add. Discharge Instructions: Take antibiotic to treat for possible atypical infection. Use the steroids to help with shortness of breath and COPD flare up. Check with your regular provider or [facility] about the lung mass seen in your left upper lung. If this is a new finding then they will need to do add itional testing to further work it up and see what is causing the mass. Check back with your regular provider about your groin pain. The tests tonight did not show anything acute to account for your symptoms in the groin. Try to increase the magnesium in your diet and you may have to take a magnesium supplement if your level is still low when you follow up with your doctor. Scripts Azithromycin (Azithromycin) 500 Mg Tablet 500 MG PO DAILY for COPD Exacerbation for 5 Days, #4 TAB 0 Refills Prov: MICHEL FARLEY MD 06/23/22 Prednisone (Prednisone) 20 Mg Tab 40 MG PO DAILY for COPD Exacerbation for 5 Days, #10 TAB 0 Refills Prov: MICHEL FARLEY MD 06/23/22 MICHEL FARLEY MD Jun 23, 2022 20:22
[2022-06-23 20:28] LABS: INR 0.9 (0.8-1.4); PROTHROMBIN TIME PATIENT 12.8 SEC (12.2-14.7)
[2022-06-23] MEDS ORDERED: KETOROLAC 15 MG/ML VIAL IVP STA (20:32)
[2022-06-23 20:39] LABS: ALBUMIN 4.4 GM/DL (3.2-4.5); BILIRUBIN,TOTAL 0.5 MG/DL (0.1-1.0); CALCIUM 9.8 MG/DL (8.5-10.1); CREATININE SERUM 0.47 MG/DL (0.60-1.30); POTASSIUM 4.3 MMOL/L (3.6-5.0); TOTAL PROTEIN 7.5 GM/DL (6.4-8.2)
[2022-06-23 20:40] LABS: MAGNESIUM 1.1 MG/DL (1.6-2.4)
[2022-06-23] MEDS ORDERED: MAGNESIUM 1 GM/100 ML IVPB 100 ML IV STA (20:43)
--- NOTE | 2022-06-23 21:07 | Diagnostic Imaging Report ---
INDICATION: Shortness of breath and abdominal pain, history of COPD, intermittent vomiting. TECHNIQUE: Multiple contiguous axial images were obtained through the chest, abdomen, and pelvis without the use of intravenous contrast. Auto Exposure Controls were utilized during the CT exam to meet ALARA standards for radiation dose reduction. COMPARISON: 06/23/2018. CT CHEST FINDINGS: There are no enlarged mediastinal or hilar nodes. There are no enlarged axillary nodes or chest wall lesions. There is no pleural or pericardial fluid. There is no overt bony abnormality in the chest. Lung parenchymal windows demonstrate diffuse emphysematous changes. There is an irregular lesion in the left upper lobe, measuring about 1.7 x 1.2 x 2.3 cm. This lesion is new compared to the prior study and is suspicious for pulmonary neoplasm. There is some peribronchial thickening in the lung bases. No other pulmonary parenchymal mass is seen. There is no overt consolidation. There is some scarring in the right lateral base. CT ABDOMEN/PELVIS FINDINGS: The liver shows no focal lesion without contrast. Gallbladder appears normal. The spleen is not enlarged. The adrenals and pancreas appear unremarkable. The kidneys, bilaterally, show no hydronephrosis. There are nonocclusive stones in the left kidney. There is no retroperitoneal mass or adenopathy. There is no ascites or abnormal fluid collection. There is no pelvic mass or lymphadenopathy. There are diffuse sigmoid diverticuli. There is prominent stool in the colon but no overt bowel obstruction. IMPRESSION: 1. CT chest shows severe emphysematous change throughout both lungs. There is a new irregular lesion in the left upper lobe, as measured above, suspicious for pulmonary neoplasm. PET imaging may be helpful for further evaluation. There is some peribronchial thickening in the lung bases. There is no consolidation or pleural fluid. 2. CT abdomen and pelvis demonstrates no soft tissue mass or adenopathy. There are nonocclusive stones in the left kidney. There are scattered colonic diverticuli but no overt bowel obstruction. Dictated by: Dictated on workstation # [id number]
[2022-06-23] MEDS ORDERED: AZITHROMYCIN 250 MG TAB (ZITHROMAX) PO STA (22:36)
[2022-06-23] MEDS ORDERED: PRD20T PO (22:41)
[2022-06-23] MEDS ORDERED: AZIT500T9 PO (22:41)
[2022-06-23 22:51] VITALS: BP 110/86
== END 2022-06-23 22:58 | disposition home or self-care (01) ==
LOC: EDUNIT# 19:59 → ER FS 20:02
DX: J44.1 Chronic obstructive pulmonary disease with (acute) exacerbation (principal); R10.31 Right lower quadrant pain; R10.32 Left lower quadrant pain; R07.89 Other chest pain; E83.42 Hypomagnesemia; R91.8 Other nonspecific abnormal finding of lung field; Z99.81 Dependence on supplemental oxygen; Z86.16 Personal history of COVID-19; Z20.822 Contact with and (suspected) exposure to COVID-19
CPT/HCPCS: 36415; 71250; 74176; 80053; 83690; 83735; 83880; 84484; 85025; 85610; 85730; 87636; 93005; 93041

== ENCOUNTER 2022-09-09 20:17 | Emergency (ER) | payer OTHER ==
[~2022-09-09] VITALS: Ht 175.3 cm; Wt 70.2 kg
[~2022-09-09 20:17] MED LIST changes: +AZIT500T9 PO; +PRD20T PO
[2022-09-09] MEDS ORDERED: NS IV 1000 ML 1,000 ML IV STA (20:33)
[2022-09-09] MEDS ORDERED: methylPREDNISolone 125 MG (Solu-MEDROL) VIAL IVP STA (20:33)
[2022-09-09] MEDS ORDERED: morphine INJ 10 MG/ML 1ML (SYR OR VIAL) IVP STA ×2 (20:33→21:05)
[2022-09-09] MEDS ORDERED: RT-ALBUTEROL/IPRATROPIUM 3 ML (DUONEB) VIAL INH STA (20:33)
[2022-09-09 20:37] LABS: BASOPHILS # (AUTO) 0.1 10^3/uL (0.0-0.1); BASOPHILS % (AUTO) 1 % (0-10); EOSINOPHILS # (AUTO) 0.4 10^3/uL (0.0-0.3); EOSINOPHILS % (AUTO) 5 % (0-10); HEMATOCRIT 30 % (40-54); HEMOGLOBIN 9.6 g/dL (13.3-17.7); LYMPHOCYTES # (AUTO) 0.8 10^3/uL (1.0-4.0); LYMPHOCYTES % (AUTO) 10 % (12-44); MEAN CORPUSCULAR HEMOGLOBIN 26 pg (25-34); MEAN CORPUSCULAR HGB CONC 32 g/dL (32-36); MEAN CORPUSCULAR VOLUME 81 fL (80-99); MEAN PLATELET VOLUME 9.4 fL (9.0-12.2); MONOCYTES # (AUTO) 0.9 10^3/uL (0.0-1.0); MONOCYTES % (AUTO) 11 % (0-12); NEUTROPHILS # (AUTO) 5.9 10^3/uL (1.8-7.8); NEUTROPHILS % (AUTO) 73 % (42-75); PLATELET COUNT 565 10^3/uL (130-400); WHITE BLOOD COUNT 8.1 10^3/uL (4.3-11.0)
[2022-09-09 20:44] LABS: PROTHROMBIN TIME PATIENT 13.5 SEC (12.2-14.7)
--- NOTE | 2022-09-09 20:44 | ED General ---
General Chief Complaint: Chest Pain Stated Complaint: CHEST PAIN, SOB Nursing Triage Note: patient reports chest pain with shortness of breath yesterday. states chest pain radiates from his chest straight through to his back. patient states lung mass removal aug 22. states he is out of pain meds for last three days. patient also states he is on home oxygen 2L but his concentrator battery is and he travels without oxygen. last breathing tx was yesterday. Source of Information: Patient History of Present Illness Date Seen by Provider: Sep 09, 2022 Time Seen by Provider: 20:18 Initial Comments 66 yo male presenting with chest pain that has been present since he had resection of a mass in his left lung on August 22 at [facility] in [place]. He has run out of his pain medicine at home. He has increased cough and shortness of breath in the last few days. He feels like he has had to use his oxygen more in the last few days and the battery on his concentrator is . He usually is able to take the oxygen off for an hour or 2 and okay but he felt like it was worse tonight. He last had a breathing treatment 1 to 2 days ago. 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 He follows with the [facility] through [place]. He has several young children at home he helps take care of so he has not gone to be seen by [facility] or the [facility]. He states he also has not had the gas money for travelling to be seen at [place] or [place]. Timing/Duration: Other (2 and 1/2 weeks ago since 08/22) Severity: Severe Modifying Factors: improves with Medication (narcotics were helping but ran out); worse with Movement (cough and movement make his pain worse and more short of breath) Associated Systoms: Chest Pain, Cough; No Diaphoresis, No Fever/Chills; Loss of Appetite, Malaise; No Nausea/Vomiting, No Rash, No Seizure; Shortness of Air; No Syncope; Weakness Allergies and Home Medications Allergies Coded Allergies: doxycycline (Verified Allergy, Severe, Rash, 06/24/18) levofloxacin (Verified Allergy, Severe, Rash, 06/24/18) Patient Home Medication List Home Medication List Reviewed: Yes Apixaban (Eliquis) 2.5 Mg Tablet, 2.5 MG PO HS, (Reported) Entered as Reported by: ROSA REED on 06/24/181335 Last Action: Last Taken Edited Aspirin (Aspirin EC) 81 Mg Tablet.dr, 81 MG PO HS, (Reported) Entered as Reported by: ROSA REED on 06/24/181335 Last Action: Last Taken Edited Cetirizine HCl (Zyrtec) 10 Mg Tablet, 10 MG PO HS, (Reported) Entered as Reported by: ROSA REED on 06/24/181335 Last Action: Last Taken Edited Cyanocobalamin (Vitamin B-12) (Vitamin B-12) 500 Mcg Tablet, 1,000 MCG PO HS, (Reported) Entered as Reported by: ROSA REED on 06/24/181335 Last Action: Last Taken Edited Duloxetine HCl (Duloxetine HCl) 60 Mg Capsule.dr, 60 MG PO HS, (Reported) Entered as Reported by: ROSA REED on 06/24/181335 Fluticasone Propionate (Fluticasone Propionate) 16 Gm [place].susp, 2 SPRAYS NS HS PRN for ALLERGIES, (Reported) Entered as Reported by: ROSA REED on 06/24/18 140 Gabapentin (Gabapentin) 300 Mg Capsule, 600 MG PO HS, (Reported) Entered as Reported by: ROSA REED on 06/24/181335 Last Action: Last Taken Edited Hydrocodone Bit/Acetaminophen (Lortab 5 Mg Tablet) 1 Each Tablet, 1 TAB PO TID PRN for PAIN-MODERATE, (Reported) Entered as Reported by: ROSA REED on 06/24/181335 Last Action: Last Taken Edited Ipratropium/Albuterol Sulfate (Iprat-Albut 0.5-3(2.5) mg/3 ml) 3 Ml Ampul.neb, 3 ML IH Q6H PRN for SHORTNESS OF BREATH, (Reported) Entered as Reported by: ROSA REED on 06/24/18 1347 Last Action: Last Taken Edited Lurasidone HCl (Latuda) 80 Mg Tablet, 80 MG PO HS, (Reported) Entered as Reported by: ROSA REED on 06/24/18 133 Metformin HCl (Metformin HCl) 1,000 Mg Tablet, 1,000 MG PO HS, (Reported) Entered as Reported by: ROSA REED on 06/24/181400 Last Action: Last Taken Edited Montelukast Sodium (Singulair) 10 Mg Tablet, 10 MG PO HS, (Reported) Entered as Reported by: ROSA REED on 06/24/181335 Last Action: Last Taken Edited Oxycodone HCl/Acetaminophen (Oxycodone-Acetaminophen 5-325) 5 Mg-325 Mg Tablet, 1 EACH PO Q6H PRN for PAIN-SEVERE (8-10) Prescribed by: MICHEL FARLEY on 09/09/222227 Pantoprazole Sodium (Protonix) 40 Mg Tablet.dr, 40 MG PO HS, (Reported) Entered as Reported by: ROSA REED on 06/24/181335 Last Action: Last Taken Edited Promethazine HCl (Promethazine Tablet) 25 Mg Tablet, 25 MG PO Q6H PRN for NAUSEA/VOMITING-2ND LINE, (Reported) Entered as Reported by: ROSA REED on 06/24/181335 Last Action: Last Taken Edited Promethazine HCl (Promethazine Tablet) 25 Mg Tablet, 25 MG PO HS, (Reported) Entered as Reported by: ROSA REED on 06/24/181400 Last Action: Last Taken Edited Discontinued Medications Azithromycin (Azithromycin) 500 Mg Tablet, 500 MG PO DAILY Discontinued Reason: No Longer Taking Prescribed by: MICHEL FARLEY on 06/23/222240 Last Action: Discontinued Baclofen (Baclofen) 20 Mg Tablet, 10 MG PO TID PRN for MUSCLE SPASMS, (Reported) Discontinued Reason: No Longer Taking Entered as Reported by: ROSA REED on 06/24/181400 Last Action: Discontinued Pravastatin Sodium (Pravastatin Sodium) 40 Mg Tablet, 20 MG PO HS, (Reported) Discontinued Reason: No Longer Taking Entered as Reported by: ROSA REED on 06/24/181400 Last Action: Discontinued Prednisone (Prednisone) 20 Mg Tab, 40 MG PO DAILY Discontinued Reason: No Longer Taking Prescribed by: MICHEL FARLEY on 06/23/222240 Last Action: Discontinued Tamsulosin HCl (Flomax) 0.4 Mg Cap, 0.4 MG PO HS, (Reported) Discontinued Reason: No Longer Taking Entered as Reported by: ROSA REED on 06/24/181335 Last Action: Discontinued Topiramate (Topamax) 50 Mg Tablet, 50 MG PO HS, (Reported) Discontinued Reason: No Longer Taking Entered as Reported by: ROSA REED on 06/24/18 1401 Last Action: Discontinued Review of Systems Review of Systems Constitutional: No chills, No fever; malaise EENTM: no symptoms reported Respiratory: see HPI Cardiovascular: see HPI Gastrointestinal: no symptoms reported Genitourinary: no symptoms reported Musculoskeletal: no symptoms reported Skin: No rash Psychiatric/Neurological: Anxiety Hematologic/Lymphatic: Denies Blood Clots Past Tuuxltg-Nsxcde-Psmvij Hx Patient Social History Tobacco Use?: Yes Tobacco type used: Cigarettes Smoking Status: Current Everyday Smoker Substance use?: No Alcohol Use?: No Immunizations Up To Date Tetanus Booster (TDap): Unknown PED Vaccines UTD: No First/Initial COVID19 Vaccinat: 2020 Second COVID19 Vaccination [place]: 2020 Seasonal Allergies Seasonal Allergies: No Past Medical History Surgery/Hospitalization HX: COPD, CAD with stent placement, Lung mass removal 08/22/2022 [facility] Surgeries: Yes (CARDIAC CATH WITH STENT X 1) Cardiac, Coronary Stent Respiratory: No Pneumonia, Chronic Bronchitis, COPD, Emphysema Currently Using CPAP: No Currently Using BIPAP: No Cardiac: Yes Coronary Artery Disease, Heart Attack, High Cholesterol Neurological: No Sexually Transmitted Disease: No HIV/AIDS: No Genitourinary: No Prostate Problems Gastrointestinal: Yes Gastroesophageal Reflux, Gastrointestinal Bleed, Esophagitis, Ulcer Musculoskeletal: No Arthritis, Chronic Back Pain Endocrine: No HEENT: No Cataract Loss of Vision: Bilateral Hearing Impairment: Hard of Hearing Cancer: Yes Colon Did You Recieve Any Treatments: Yes What Type of Treatment Did You: Chemotherapy Psychosocial: No Integumentary: No Blood Disorders: No Adverse Reaction/Blood Tranf: No Physical Exam Vital Signs Vital Signs - First Documented 09/09/22 20:17 Temp 36.8 Pulse 121 Resp 16 B/P (MAP) 150/103 (119) Pulse Ox 98 O2 Delivery Nasal Cannula O2 Flow Rate 2.00 Capillary Refill : Less Than 3 Seconds Height, Weight, BMI Height: 5'9.00" Weight: 185lbs. 4.0oz. 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 Norm as Tested Skin: Normal Color, Warm/Dry Progress/Results/Core Measures Suspected Sepsis SIRS Temperature: Pulse: 121 Respiratory Rate: 16 Laboratory Tests 09/09/22 20:20: White Blood Count 8.1 Blood Pressure 150 /103 Mean: 119 Laboratory Tests 09/09/22 20:20: Creatinine 0.55L, INR Comment 1.0, Platelet Count 565H, Total Bilirubin 0.3 Results/Orders Lab Results Laboratory Tests Test 09/09/22 20:20 Range/Units White Blood Count 8.1 4.3-11.0 10^3/uL Red Blood Count 3.66 L 4.30-5.52 10^6/uL Hemoglobin 9.6 L 13.3-17.7 g/dL Hematocrit 30 L 40-54 % Mean Corpuscular Volume 81 80-99 fL Mean Corpuscular Hemoglobin 26 25-34 pg Mean Corpuscular Hemoglobin Concent 32 32-36 g/dL Red Cell Distribution Width 15.2 H 10.0-14.5 % Platelet Count 565 H 130-400 10^3/uL Mean Platelet Volume 9.4 9.0-12.2 fL Immature Granulocyte % (Auto) 0 % Neutrophils (%) (Auto) 73 42-75 % Lymphocytes (%) (Auto) 10 L 12-44 % Monocytes (%) (Auto) 11 0-12 % Eosinophils (%) (Auto) 5 0-10 % Basophils (%) (Auto) 1 0-10 % Neutrophils # (Auto) 5.9 1.8-7.8 10^3/uL Lymphocytes # (Auto) 0.8 L 1.0-4.0 10^3/uL Monocytes # (Auto) 0.9 0.0-1.0 10^3/uL Eosinophils # (Auto) 0.4 H 0.0-0.3 10^3/uL Basophils # (Auto) 0.1 0.0-0.1 10^3/uL Immature Granulocyte # (Auto) 0.0 0.0-0.1 10^3/uL Prothrombin Time 13.5 12.2-14.7 SEC INR Comment 1.0 0.8-1.4 Activated Partial Thromboplast Time 26 24-35 SEC Sodium Level 133 L 135-145 MMOL/L Potassium Level 4.3 3.6-5.0 MMOL/L Chloride Level 96 L 98-107 MMOL/L Carbon Dioxide Level 27 21-32 MMOL/L Anion Gap 10 5-14 MMOL/L Blood Urea Nitrogen 4 L 7-18 MG/DL Creatinine 0.55 L 0.60-1.30 MG/DL Estimat Glomerular Filtration Rate 111 BUN/Creatinine Ratio 7 Glucose Level 170 H 70-105 MG/DL Calcium Level 9.0 8.5-10.1 MG/DL Corrected Calcium 9.2 8.5-10.1 MG/DL Magnesium Level 1.1 *L 1.6-2.4 MG/DL Total Bilirubin 0.3 0.1-1.0 MG/DL Aspartate Amino Transf (AST/SGOT) 20 5-34 U/L Alanine Aminotransferase (ALT/SGPT) 8 0-55 U/L Alkaline Phosphatase 92 40-136 U/L Troponin I < 0.30 <0.30 NG/ML C-Reactive Protein 0.45 <0.50 MG/DL Pro-B-Type Natriuretic Peptide 191.6 H <125.0 PG/ML Total Protein 7.3 6.4-8.2 GM/DL Albumin 3.7 3.2-4.5 GM/DL Lipase 25 8-78 U/L Influenza Type A (RT-PCR) Not Detected Not Detecte Influenza Type B (RT-PCR) Not Detected Not Detecte SARS-CoV-2 RNA (RT-PCR) Detected H Not Detecte My Orders Orders - MICHEL FARLEY MD Ekg Tracing (09/09/22 20:19) Cbc With Automated Diff (09/09/22 20:30) Magnesium (09/09/22 20:30) Chest 1 View Ap/Pa Only (09/09/22 20:30) Comprehensive Metabolic Panel (09/09/22 20:30) Protime With Inr (09/09/22 20:30) Partial Thromboplastin Time (09/09/22 20:30) O2 (09/09/22 20:30) Monitor-Rhythm Ecg Trace Only (09/09/22 20:30) Ed Iv/Invasive Line Start (09/09/22 20:30) Lipase (09/09/22 20:30) Troponin I Fs (09/09/22 20:30) Probnp Fs (09/09/22 20:30) Sputum Culture (09/09/22 20:30) Crp Fs (09/09/22 20:30) Covid 19 Inhouse Test (09/09/22 20:30) Influenza A And B By Pcr (09/09/22 20:30) Isolation Central Supply Req (09/09/22 20:30) Ct Angio Chest W (09/09/22 20:30) Ns Iv 1000 Ml (Sodium Chloride 0.9%) (09/09/22 20:33) Methylprednisolone Sod Succ (Solu-Medrol (09/09/22 20:33) Albuterol/Ipra Inhalation Soln (Duoneb I (09/09/22 20:33) Morphine Injection (Morphine Injection (09/09/22 20:33) Svn Small Volume Nebulizer (09/09/22 20:33) Magnesium 1 Gm/100 Ml Ivpb (Magnesium Espinal (09/09/22 20:56) Iohexol Injection (Omnipaque 350 Mg/Ml 1 (09/09/22 21:00) Received Contrast (Hold Metformin- Contr (09/09/22 21:00) Sodium Chloride Flush (Catheter Flush Sy (09/09/22 21:00) Ns (Ivpb) (Sodium Chloride 0.9% Ivpb Bag (09/09/22 21:00) Morphine Injection (Morphine Injection (09/09/22 21:05) Rx-Nirmatrelvir/Ritonavir(Eua) (Rx-Paxlo (09/09/22 22:14) Rx-Oxycodone/Apap 5-325 Mg (Rx-Percocet (09/09/22 22:15) Rx-Nirmatrelvir/Ritonavir(Eua) (Rx-Paxlo (09/09/22 22:12) Medications Given in ED Current Medications Medications Dose Ordered Sig/Edgar Route Start Time Stop Time Status Last Admin Dose Admin Iohexol 100 ml ONCE ONCE IV 09/09/22 21:00 09/09/22 21:01 DC 09/09/22 21:15 100 ML Oxycodone/ Acetaminophen 1 ea Q6H PRN PO 09/09/22 22:15 09/09/22 22:43 DC 09/09/22 22:30 1 EA Sodium Chloride 100 ml ONCE ONCE IV 09/09/22 21:00 09/09/22 21:01 DC 09/09/22 21:15 100 ML Vital Signs/I&O 09/09/22 09/09/22 09/09/22 09/09/22 20:17 20:17 20:19 22:30 Temp 36.8 Pulse 121 97 Resp 16 18 B/P (MAP) 150/103 (119) 140/68 Pulse Ox 98 100 96 O2 Delivery Nasal Cannula Nasal Cannula Nasal Cannula Nasal Cannula O2 Flow Rate 2.00 2.00 3.00 Capillary Refill : Less Than 3 Seconds Blood Pressure Mean: 119 Progress Note #1: Progress Note Obtain labs, cardiac enzymes, ECG, Chest xray, CT angiogram chest to evaluate for PE vs lung mass vs hemothorax vs pneumonia. Give Solumedrol 125 mg IV to help with cough and shortness of breath. Morphine 4 mg IV for chest pain. Saline 1 L IVF bolus for hydration. Duoneb breathing treatment to help with cough and shortness of breath. Progress Note #2: Progress Note CBC shows WBC not elevated. Anemia with Hgb 9.6. Chemistry with negative cardiac enzymes but he has mild elevation of glucose to 170 and Mag is 1.1 same as in June. Influenza is Negative but Covid is positive. No acute infiltrate on CXR but has severe COPD changes and increased perihilar lung markings. Will see what CT chest shows. Progress Note #3: Progress Note CT scan of chest shows no PE or infiltrate. He has lateral 5th rib fracture. Post op changes in the area of recent surgery. Patient was feeling better and breathing better after treatment. Give Paxlovid for Covid and advised to avoid taking Crestor and Latuda. Encourage fluids and hydration. Given information for [facility] [place]. ECG Initial ECG Impression Date: Sep 09, 2022 Initial ECG Impression Time: 20:24 Initial ECG Rate: 104 Initial ECG Rhythm: S.Tach Initial ECG Comparisson: Unchanged (06/23/2022) Comment On my personal interpretation and review of his electrocardiogram he is sinus tachycardia with heart rate of 104 bpm and some extra beats. He had no acute ST elevation. He has a right bundle branch block. He has Q waves for possible old inferior and lateral [place]. QT interval 324 ms with a QTc interval 385 ms. Overall appears similar to prior tracing from June 23, 2022 Diagnostic Imaging Diagonstic Imaging: Xray Plain Films/CT/US/NM/MRI: chest Comments NAME: ASHWIN YO [facility] REC#: [id number] PT STATUS: REG ER : 1955 PHYSICIAN: MICHEL FARLEY MD ADMIT DATE: 09/09/22/ER FS Signed Date of Exam:09/09/22 CHEST 1 VIEW AP/PA ONLY EXAMINATION: Chest 1 view. HISTORY: Cough. Shortness of breath. Chest pain. COMPARISON: 06/23/2018. FINDINGS: The lung volumes are normal. Patchy perihilar opacities are seen. No large pleural effusion or pneumothorax is seen. The cardiomediastinal silhouette is normal in size and contour. No acute osseous abnormality is seen. IMPRESSION: Patchy perihilar opacities, bilaterally, which may represent atelectasis or infection. Dictated by: Dictated on workstation # [id number] Dict: 09/09/222099 Trans: 09/09/222107 [facility] [id number] Interpreted by: SYDNI JOHN DO Electronically signed by: SYDNI JOHN DO 09/09/222107 Reviewed: Reviewed by Or Diagonstic Imaging: CT Plain Films/CT/US/NM/MRI: chest Comments [facility] [place] NAME: ASHWIN YO [facility] REC#: [id number] PT STATUS: REG ER : 1955 PHYSICIAN: MICHEL FARLEY MD ADMIT DATE: 09/09/22/ER FS Signed Date of Exam:09/09/22 CT ANGIO CHEST W PROCEDURE: CT angiography of the chest with contrast. TECHNIQUE: Multiple contiguous axial images were obtained through the chest after uneventful bolus administration of intravenous contrast. 3D reconstructed CTA MIP acquisitions were also performed. Auto Exposure Controls were utilized during the CT exam to meet ALARA standards for radiation dose reduction. INDICATION: Chest pain. Recent lung surgery. COMPARISON: 06/23/2022. FINDINGS: This helical CT pulmonary angiogram is diagnostic to the subsegmental level branches of the pulmonary artery and demonstrates no pulmonary emboli. The heart and great vessels are unremarkable. There is no pericardial effusion. There is no axillary, mediastinal or hilar adenopathy. Wedge resection changes are visualized in the left lung. The previously visualized spiculated nodule has been surgically removed. Scarring and atelectasis is seen in the left upper lobe. Centrilobular emphysema is present. No new focal nodule is seen. No central endobronchial obstructing lesion. No pleural effusion or pneumothorax. Mildly displaced fracture is seen involving the lateral aspect of the left 5th rib. No fracture is seen in the thoracic spine. Limited views of the upper abdomen are unremarkable. IMPRESSION: 1. No acute pulmonary embolus. 2. Postsurgical changes of wedge resection from the left upper lobe. Associated atelectasis and scarring is seen in the left upper lobe. The previously noted spiculated nodule in the left upper lobe has been removed. No new suspicious nodule. 3. Mildly displaced fracture involving the lateral aspect of the left 5th rib. This may represent the patient's history of chest pain. 4. Centrilobular emphysema. Dictated by: Dictated on workstation # [id number] Dict: 09/09/222134 Trans: 09/09/222155 [facility] [id number] Interpreted by: SYDNI JOHN DO Electronically signed by: SYDNI JOHN DO 09/09/222155 Reviewed: Reviewed by Or Departure Impression Primary Impression: COVID-19 virus infection Additional Impressions: Non-cardiac chest pain Shortness of breath COPD with exacerbation Left rib fracture Qualified Codes: S22.32XA - Fracture of one rib, left side, initial encounter for closed fracture Disposition: 01 HOME, SELF-CARE Condition: Stable Departure-Patient Inst. Decision time for Depature: 22:19 Referrals: NO,LOCAL PHYSICIAN (PCP) Primary Care Physician [facility] Patient Instructions: COPD Exacerbation, Adult ED, COVID-19 ED, RIB FRACTURE, Shortness of Breath, Adult ED, Nirmatrelvir and Ritonavir FDA Fact Sheet Add. Discharge Instructions: For the next 5 days while you are taking Paxlovid for your Covid infection you must NOT take your Latuda (Lurasidone) or your Crestor (Rosuvastatin). They will interact with the Anti-viral medicine. Use your breathing treatments every 4 to 6 hours as needed for shortness of breath Wear a mask around others for next 5 days and quarantine. After the next 5 days you should continue to wear a mask for a total of 10 days but you would not have to quarantine. Follow up with [facility] clinic by calling [phone] or call the [place] [facility] to get established here in [place] with the [facility]. [facility] at [address] [place] [address]. Phone number [phone] Take pain medicine to help with left 5th rib fracture. All discharge instructions reviewed with patient and/or family. Voiced understanding. Scripts Oxycodone HCl/Acetaminophen (Oxycodone-Acetaminophen 5-325) 5 Mg-325 Mg Tablet 1 EACH PO Q6H PRN for PAIN-SEVERE (8-10) MDD 6 for 5 Days, #20 TAB 0 Refills Prov: MICHEL FARLEY MD 09/09/22 MICHEL FARLEY MD Sep 09, 2022 20:44
[2022-09-09 20:54] LABS: CREATININE SERUM 0.55 MG/DL (0.60-1.30); POTASSIUM 4.3 MMOL/L (3.6-5.0)
[2022-09-09 20:55] LABS: ALBUMIN 3.7 GM/DL (3.2-4.5); BILIRUBIN,TOTAL 0.3 MG/DL (0.1-1.0); MAGNESIUM 1.1 MG/DL (1.6-2.4); TOTAL PROTEIN 7.3 GM/DL (6.4-8.2)
[2022-09-09] MEDS ORDERED: MAGNESIUM 1 GM/100 ML IVPB 100 ML IV STA (20:56)
[2022-09-09] MEDS ORDERED: CATHETER FLUSH 10 ML SYR IV PRN (21:00)
[2022-09-09] MEDS ORDERED: IOHEXOL 350 MG/ML 100 ML (OMNIPAQUE 350) VIAL IV ONE (21:00)
[2022-09-09] MEDS ORDERED: HOLD METFORMIN - RECEIVED CONTRAST 20 ML VIAL IV SCH (21:00)
[2022-09-09] MEDS ORDERED: NS 100 ML (IVPB) BAG IV ONE (21:00)
--- NOTE | 2022-09-09 21:08 | Diagnostic Imaging Report ---
EXAMINATION: Chest 1 view. HISTORY: Cough. Shortness of breath. Chest pain. COMPARISON: 06/23/2018. FINDINGS: The lung volumes are normal. Patchy perihilar opacities are seen. No large pleural effusion or pneumothorax is seen. The cardiomediastinal silhouette is normal in size and contour. No acute osseous abnormality is seen. IMPRESSION: Patchy perihilar opacities, bilaterally, which may represent atelectasis or infection. Dictated by: Dictated on workstation # [id number]
--- NOTE | 2022-09-09 21:44 | Diagnostic Imaging Report ---
PROCEDURE: CT angiography of the chest with contrast. TECHNIQUE: Multiple contiguous axial images were obtained through the chest after uneventful bolus administration of intravenous contrast. 3D reconstructed CTA MIP acquisitions were also performed. Auto Exposure Controls were utilized during the CT exam to meet ALARA standards for radiation dose reduction. INDICATION: Chest pain. Recent lung surgery. COMPARISON: 06/23/2022. FINDINGS: This helical CT pulmonary angiogram is diagnostic to the subsegmental level branches of the pulmonary artery and demonstrates no pulmonary emboli. The heart and great vessels are unremarkable. There is no pericardial effusion. There is no axillary, mediastinal or hilar adenopathy. Wedge resection changes are visualized in the left lung. The previously visualized spiculated nodule has been surgically removed. Scarring and atelectasis is seen in the left upper lobe. Centrilobular emphysema is present. No new focal nodule is seen. No central endobronchial obstructing lesion. No pleural effusion or pneumothorax. Mildly displaced fracture is seen involving the lateral aspect of the left 5th rib. No fracture is seen in the thoracic spine. Limited views of the upper abdomen are unremarkable. IMPRESSION: 1. No acute pulmonary embolus. 2. Postsurgical changes of wedge resection from the left upper lobe. Associated atelectasis and scarring is seen in the left upper lobe. The previously noted spiculated nodule in the left upper lobe has been removed. No new suspicious nodule. 3. Mildly displaced fracture involving the lateral aspect of the left 5th rib. This may represent the patient's history of chest pain. 4. Centrilobular emphysema. Dictated by: Dictated on workstation # [id number]
[2022-09-09] MEDS ORDERED: RX-NIRMATRELVIR/RITONAVIR (PAXLOVID) #30 TABS PO ONE (22:12)
[2022-09-09] MEDS ORDERED: RX-NIRMATRELVIR/RITONAVIR (PAXLOVID) #30 TABS PO STA (22:14)
[2022-09-09] MEDS ORDERED: RX-OXYCODONE/APAP 5-325 MG #4 TAB PK PO PRN (22:15)
[2022-09-09] MEDS ORDERED: OXYC1TAB11 PO (22:27)
[2022-09-09 22:30] VITALS: BP 140/68
== END 2022-09-09 22:40 | disposition home or self-care (01) ==
LOC: EDUNIT# 20:17 → ER FS 20:19
DX: U07.1 COVID-19 (principal); S22.32XA Fracture of one rib, left side, initial encounter for closed fracture; J44.1 Chronic obstructive pulmonary disease with (acute) exacerbation; D64.9 Anemia, unspecified; R73.9 Hyperglycemia, unspecified; F17.210 Nicotine dependence, cigarettes, uncomplicated; Z28.310 Unvaccinated for COVID-19; X58.XXXA Exposure to other specified factors, initial encounter
CPT/HCPCS: 36415; 71045; 71275; 80053; 83690; 83735; 83880; 84484; 85025; 85610; 85730; 86141; 87070; 87205; 87636; 93005; 94640

== ENCOUNTER 2022-09-30 21:37 | Emergency (ER) | payer OTHER ==
[~2022-09-30] VITALS: Ht 175.2 cm; Wt 70.5 kg
[~2022-09-30 21:37] MED LIST changes: +OXYC1TAB11 PO
[2022-09-30 21:41] VITALS: BP 159/68
--- NOTE | 2022-09-30 21:42 | ED Chest Pain ---
General Stated Complaint: CHEST PAIN History of Present Illness Date Seen by Provider: Sep 30, 2022 Time Seen by Provider: 21:42 Initial Comments 66-year-old male presents with chest pain, shortness of breath, wheezing. Patient has a history of a lung mass removal on August 22 at [facility]. Patient reports for at least the last month to 2 months he has been having this chest pain. Patient presents today because he is also having some wheezing shortness of breath. He has a history of COPD, continues to smoke. He reports he last took his breathing treatments yesterday. He reports that he has been a little short of breath since he had COVID about a month ago. Patient reports that they cannot do the biopsy of his lungs because his lungs were so bad from COPD and that so they had to take a "triangle wedge out" he had a low-grade fever. He denies any vomiting, diarrhea. He does have an increased cough. Allergies and Home Medications Allergies Coded Allergies: doxycycline (Verified Allergy, Severe, Rash, 06/24/18) levofloxacin (Verified Allergy, Severe, Rash, 06/24/18) Patient Home Medication List Home Medication List Reviewed: Yes Apixaban (Eliquis) 2.5 Mg Tablet, 2.5 MG PO HS, (Reported) Entered as Reported by: ROSA REED on 06/24/18 1336 Aspirin (Aspirin EC) 81 Mg Tablet.dr, 81 MG PO HS, (Reported) Entered as Reported by: ROSA REED on 06/24/18 1336 Cetirizine HCl (Zyrtec) 10 Mg Tablet, 10 MG PO HS, (Reported) Entered as Reported by: ROSA REED on 06/24/18 1336 Cyanocobalamin (Vitamin B-12) (Vitamin B-12) 500 Mcg Tablet, 1,000 MCG PO HS, (Reported) Entered as Reported by: ROSA REED on 06/24/18 1336 Duloxetine HCl (Duloxetine HCl) 60 Mg Capsule.dr, 60 MG PO HS, (Reported) Entered as Reported by: ROSA REED on 06/24/18 1336 Fluticasone Propionate (Fluticasone Propionate) 16 Gm [place].susp, 2 SPRAYS NS HS PRN for ALLERGIES, (Reported) Entered as Reported by: ROSA REED on 06/24/18 1401 Gabapentin (Gabapentin) 300 Mg Capsule, 600 MG PO HS, (Reported) Entered as Reported by: ROSA REED on 06/24/18 1336 Hydrocodone Bit/Acetaminophen (Lortab 5 Mg Tablet) 1 Each Tablet, 1 TAB PO TID PRN for PAIN-MODERATE, (Reported) Entered as Reported by: ROSA REED on 06/24/18 1336 Ipratropium/Albuterol Sulfate (Iprat-Albut 0.5-3(2.5) mg/3 ml) 3 Ml Ampul.neb, 3 ML IH Q6H PRN for SHORTNESS OF BREATH, (Reported) Entered as Reported by: ROSA REED on 06/24/18 1347 Lurasidone HCl (Latuda) 80 Mg Tablet, 80 MG PO HS, (Reported) Entered as Reported by: ROSA REED on 06/24/18 133 Metformin HCl (Metformin HCl) 1,000 Mg Tablet, 1,000 MG PO HS, (Reported) Entered as Reported by: ROSA REED on 06/24/18 1401 Montelukast Sodium (Singulair) 10 Mg Tablet, 10 MG PO HS, (Reported) Entered as Reported by: ROSA REED on 06/24/18 133 Oxycodone HCl/Acetaminophen (Oxycodone-Acetaminophen 5-325) 5 Mg-325 Mg Tablet, 1 EACH PO Q6H PRN for PAIN-SEVERE (8-10) Prescribed by: MICHEL FARLEY on 09/09/228 Pantoprazole Sodium (Protonix) 40 Mg Tablet.dr, 40 MG PO HS, (Reported) Entered as Reported by: ROSA REED on 06/24/18 133 Promethazine HCl (Promethazine Tablet) 25 Mg Tablet, 25 MG PO Q6H PRN for NAUSEA/VOMITING-2ND LINE, (Reported) Entered as Reported by: ROSA REED on 06/24/18 133 Promethazine HCl (Promethazine Tablet) 25 Mg Tablet, 25 MG PO HS, (Reported) Entered as Reported by: ROSA REED on 06/24/18 1401 Review of Systems Review of Systems Constitutional: No chills; fever, malaise Respiratory: Denies Cough, Denies Shortness of Air, Denies Wheezing Cardiovascular: See HPI, Chest Pain; Denies Edema, Denies Lightheadedness Gastrointestinal: Denies Abdominal Pain, Denies Nausea, Denies Vomiting Musculoskeletal: no symptoms reported Skin: no symptoms reported Psychiatric/Neurological: No Symptoms Reported Past Yzebfsh-Uszqyk-Ouuect Hx Immunizations Up To Date Tetanus Booster (TDap): Unknown PED Vaccines UTD: No First/Initial COVID19 Vaccinat: 2020 Second COVID19 Vaccination [place]: 2020 Seasonal Allergies Seasonal Allergies: No Past Medical History Surgery/Hospitalization HX: COPD, CAD with stent placement, Lung mass removal [place]/22/20[place] [facility] [place] Surgeries: Yes (CARDIAC CATH WITH STENT X 1) Cardiac, Coronary Stent Respiratory: No Pneumonia, Chronic Bronchitis, COPD, Emphysema Currently Using CPAP: No Currently Using BIPAP: No Cardiac: Yes Coronary Artery Disease, Heart Attack, High Cholesterol Neurological: No Sexually Transmitted Disease: No HIV/AIDS: No Genitourinary: No Prostate Problems Gastrointestinal: Yes Gastroesophageal Reflux, Gastrointestinal Bleed, Esophagitis, Ulcer Musculoskeletal: No Arthritis, Chronic Back Pain Endocrine: No HEENT: No Cataract Loss of Vision: Bilateral Hearing Impairment: Hard of Hearing Cancer: Yes Colon Did You Recieve Any Treatments: Yes What Type of Treatment Did You: Chemotherapy Psychosocial: No Integumentary: No Blood Disorders: No Adverse Reaction/Blood Tranf: No Physical Exam Vital Signs Vital Signs - First Documented 09/30/22 21:41 Temp 36.5 Pulse 104 Resp 24 B/P (MAP) 159/68 (98) Pulse Ox 93 O2 Delivery Room Air Capillary Refill : Height, Weight, BMI Height: 5'9.00" Weight: 185lbs. 4.0oz. 84.463394ow; 22.00 BMI Method:Stated General Appearance: No Apparent Distress, WD/WN Neck: Non Tender, Supple Respiratory: No Accessory Muscle Use, No Respiratory Distress, Decreased Breath Sounds (Diffuse) Cardiovascular: Normal Peripheral Pulses, Tachycardia Gastrointestinal: Non Tender, Soft Extremity: Normal Capillary Refill, Normal Inspection Neurologic/Psychiatric: Alert, Oriented x3, No Motor/Sensory Deficits Skin: Normal Color, Warm/Dry Progress/Results/Core Measures Results/Orders Lab Results Laboratory Tests Test 09/30/22 21:50 Range/Units White Blood Count 9.6 4.3-11.0 10^3/uL Red Blood Count 3.68 L 4.30-5.52 10^6/uL Hemoglobin 9.0 L 13.3-17.7 g/dL Hematocrit 28 L 40-54 % Mean Corpuscular Volume 77 L 80-99 fL Mean Corpuscular Hemoglobin 25 25-34 pg Mean Corpuscular Hemoglobin Concent 32 32-36 g/dL Red Cell Distribution Width 17.3 H 10.0-14.5 % Platelet Count 293 130-400 10^3/uL Mean Platelet Volume 10.1 9.0-12.2 fL Immature Granulocyte % (Auto) 0 % Neutrophils (%) (Auto) 61 42-75 % Lymphocytes (%) (Auto) 27 12-44 % Monocytes (%) (Auto) 7 0-12 % Eosinophils (%) (Auto) 4 0-10 % Basophils (%) (Auto) 1 0-10 % Neutrophils # (Auto) 5.8 1.8-7.8 10^3/uL Lymphocytes # (Auto) 2.6 1.0-4.0 10^3/uL Monocytes # (Auto) 0.7 0.0-1.0 10^3/uL Eosinophils # (Auto) 0.4 H 0.0-0.3 10^3/uL Basophils # (Auto) 0.1 0.0-0.1 10^3/uL Immature Granulocyte # (Auto) 0.0 0.0-0.1 10^3/uL Sodium Level 130 L 135-145 MMOL/L Potassium Level 3.7 3.6-5.0 MMOL/L Chloride Level 92 L 98-107 MMOL/L Carbon Dioxide Level 26 21-32 MMOL/L Anion Gap 12 5-14 MMOL/L Blood Urea Nitrogen 6 L 7-18 MG/DL Creatinine 0.49 L 0.60-1.30 MG/DL Estimat Glomerular Filtration Rate 115 BUN/Creatinine Ratio 12 Glucose Level 173 H 70-105 MG/DL Calcium Level 8.7 8.5-10.1 MG/DL Corrected Calcium 8.7 8.5-10.1 MG/DL Magnesium Level 0.9 *L 1.6-2.4 MG/DL Total Bilirubin 0.5 0.1-1.0 MG/DL Aspartate Amino Transf (AST/SGOT) 13 5-34 U/L Alanine Aminotransferase (ALT/SGPT) 7 0-55 U/L Alkaline Phosphatase 77 40-136 U/L Troponin I < 0.30 <0.30 NG/ML Total Protein 7.5 6.4-8.2 GM/DL Albumin 4.0 3.2-4.5 GM/DL My Orders Orders - FRANCE ALFRED DO Cbc With Automated Diff (09/30/22 21:46) Comprehensive Metabolic Panel (09/30/22 21:46) Magnesium (09/30/22:46) Troponin I Fs (09/30/22:46) Ekg Tracing (09/30/22:46) Monitor-Rhythm Ecg Trace Only (09/30/22:46) Chest Pa/Lat (2 View) (09/30/22:46) Albuterol/Ipra Inhalation Soln (Duoneb I (09/30/22 22:00) Svn Small Volume Nebulizer (09/30/22:46) Ed Iv/Invasive Line Start (09/30/22 22:09) Magnesium 1 Gm/100 Ml Ivpb (Magnesium Espinal (09/30/22 22:30) Ketorolac Injection (Toradol Injection) (09/30/22 22:30) Medications Given in ED Current Medications Medications Dose Ordered Sig/Edgar Route Start Time Stop Time Status Last Admin Dose Admin Albuterol/ Ipratropium 3 ml ONCE ONCE INH 09/30/22 22:00 09/30/22 22:01 DC 09/30/22 22:15 3 ML Ketorolac Tromethamine 15 mg ONCE ONCE IVP 09/30/22 22:30 09/30/22 22:31 DC 09/30/22 22:38 15 MG Vital Signs/I&O 09/30/22 21:41 Temp 36.5 Pulse 104 Resp 24 B/P (MAP) 159/68 (98) Pulse Ox 93 O2 Delivery Room Air Progress Progress Note : Progress Note Patient was given a DuoNeb breathing treatment with significant improvement when he presented to the ER. Throughout his stay at the ER he was asking for thing for pain for his chronic chest pain has been gone for couple months. I ordered Toradol for patient. I also ordered mag since he had a low magnesium which could be contributing to his COPD. Patient was angry that he was not getting a narcotic for his pain. He reported to the nurse that he was wanting to leave. He initially agreed that he would just wait until the magnesium was done but then stated that it was going to take too long and he just wanted to leave. Patient then got up and left the ER. He left prior to me being able to reevaluate and complete his work-up. Initial ECG Impression Date: Sep 30, 2022 Initial ECG Impression Time: 21:47 Initial ECG Rate: 108 Initial ECG Rhythm: S.Tach Initial ECG Impression: Nonspecific Changes Comment RBBB, no acute st changes Diagnostic Imaging Diagonstic Imaging: Xray Plain Films/CT/US/NM/MRI: chest Comments No acute changes., No infiltrate noted Departure Impression Primary Impression: COPD with exacerbation Disposition: 07 AGAINST MEDICAL ADVICE Condition: Stable Departure-Patient Inst. Referrals: NO,LOCAL PHYSICIAN (PCP/Family) Primary Care Physician FRANCE ALFRED DO Sep 30, 2022 21:42
[2022-09-30 22:00] LABS: BASOPHILS # (AUTO) 0.1 10^3/uL (0.0-0.1); BASOPHILS % (AUTO) 1 % (0-10); EOSINOPHILS # (AUTO) 0.4 10^3/uL (0.0-0.3); EOSINOPHILS % (AUTO) 4 % (0-10); HEMATOCRIT 28 % (40-54); LYMPHOCYTES # (AUTO) 2.6 10^3/uL (1.0-4.0); LYMPHOCYTES % (AUTO) 27 % (12-44); MEAN CORPUSCULAR HEMOGLOBIN 25 pg (25-34); MEAN CORPUSCULAR HGB CONC 32 g/dL (32-36); MEAN CORPUSCULAR VOLUME 77 fL (80-99); MEAN PLATELET VOLUME 10.1 fL (9.0-12.2); MONOCYTES # (AUTO) 0.7 10^3/uL (0.0-1.0); MONOCYTES % (AUTO) 7 % (0-12); NEUTROPHILS # (AUTO) 5.8 10^3/uL (1.8-7.8); NEUTROPHILS % (AUTO) 61 % (42-75); PLATELET COUNT 293 10^3/uL (130-400); WHITE BLOOD COUNT 9.6 10^3/uL (4.3-11.0)
[2022-09-30] MEDS ORDERED: RT-ALBUTEROL/IPRATROPIUM 3 ML (DUONEB) VIAL INH ONE (22:00)
[2022-09-30 22:21] LABS: BUN/CREATININE RATIO 12; CALCIUM 8.7 MG/DL (8.5-10.1); CARBON DIOXIDE 26 MMOL/L (21-32); CHLORIDE 92 MMOL/L (98-107); CREATININE SERUM 0.49 MG/DL (0.60-1.30); GFR ESTIMATED 115; GLUCOSE 173 MG/DL (70-105); POTASSIUM 3.7 MMOL/L (3.6-5.0); SODIUM 130 MMOL/L (135-145)
[2022-09-30 22:23] LABS: ALANINE AMINOTRANSFERASE 7 U/L (0-55); ALKALINE PHOSPHATASE 77 U/L (40-136); BILIRUBIN,TOTAL 0.5 MG/DL (0.1-1.0); MAGNESIUM 0.9 MG/DL (1.6-2.4); TOTAL PROTEIN 7.5 GM/DL (6.4-8.2)
[2022-09-30] MEDS ORDERED: KETOROLAC 30 MG/ML VIAL IVP ONE (22:30)
[2022-09-30] MEDS: MAGNESIUM 1 GM/100 ML IVPB 100 ML IV SCH ×2 (22:38→22:43)
--- NOTE | 2022-10-01 08:47 | Diagnostic Imaging Report ---
EXAM: CHEST PA/LAT (2 VIEW) INDICATION: Chest pain. Shortness of breath. COMPARISON: Chest radiograph 09/09/2022. CTA chest 09/09/2022. FINDINGS: Normal heart size and central pulmonary vascularity. Hyperinflation with scattered scarring. Postoperative changes in the left upper lobe. No pleural effusion or pneumothorax. No acute osseous findings IMPRESSION: 1. COPD. 2. Postoperative changes in the left upper lobe. 3. No acute cardiopulmonary findings. Dictated by: Dictated on workstation # [id number]
== END 2022-09-30 22:44 | disposition left against medical advice (07) ==
LOC: EDUNIT# 21:37 → ER FS 21:41
DX: J44.1 Chronic obstructive pulmonary disease with (acute) exacerbation (principal); F17.200 Nicotine dependence, unspecified, uncomplicated; Z85.038 Personal history of other malignant neoplasm of large intestine; Z92.21 Personal history of antineoplastic chemotherapy
CPT/HCPCS: 36415; 71046; 80053; 83735; 84484; 85025; 93005; 93041; 94640

== ENCOUNTER 2022-10-31 07:12 | Emergency (ER) | payer OTHER ==
--- NOTE | 2022-10-31 07:35 | ED General ---
General Stated Complaint: SOB Source of Information: Patient Exam Limitations: No Limitations (TAMARA MOURA) History of Present Illness Date Seen by Provider: Oct 31, 2022 Time Seen by Provider: 07:12 Initial Comments This is a 66yo M with pmhx including COPD and previous coronary stents who is brought by EMS for increasing SOB. Pt endorses increasing shortness of breath for the past 2 days. Members of his family recently had influenza. Patient tried a breathing treatment at home 2100 on with no improvement of symptoms. Pt wears 2-3L O2 at home. He was found by EMS with O2 Sat 88% while on his 3L O2 with decreased bilateral breath sounds. Pt received duoneb and albuterol by EMS with saturation improvement to 98%. Pt endorses feeling warm. Denies fever, chills, chest pain, nausea, vomiting, diarrhea. Timing/Duration: 1-2 Days Severity: Moderate Associated Systoms: No Chest Pain, No Cough, No Fever/Chills, No Headaches, No Nausea/Vomiting; Shortness of Air; No Syncope, No Weakness; Other (feeling warm, no reported fever) (TAMARA MOURA) Allergies and Home Medications Allergies Coded Allergies: doxycycline (Verified Allergy, Severe, Rash, 06/24/18) levofloxacin (Verified Allergy, Severe, Rash, 06/24/18) Patient Home Medication List Home Medication List Reviewed: Yes (GERALDINE ARCE MD) Apixaban (Eliquis) 2.5 Mg Tablet, 2.5 MG PO HS, (Reported) Entered as Reported by: ROSA REED on 06/24/18 1336 Aspirin (Aspirin EC) 81 Mg Tablet.dr, 81 MG PO HS, (Reported) Entered as Reported by: ROSA REED on 06/24/18 1336 Azithromycin (Azithromycin) 250 Mg Tablet, 250 MG PO UD Prescribed by: GERALDINE CARDONA on 10/31/22 1006 Cefdinir (Cefdinir) 300 Mg Capsule, 300 MG PO BID Prescribed by: GERALDINE CARDONA on 10/31/22 1006 Cetirizine HCl (Zyrtec) 10 Mg Tablet, 10 MG PO HS, (Reported) Entered as Reported by: ROSA REED on 06/24/18 1336 Cyanocobalamin (Vitamin B-12) (Vitamin B-12) 500 Mcg Tablet, 1,000 MCG PO HS, (Reported) Entered as Reported by: ROSA REED on 06/24/18 1336 Duloxetine HCl (Duloxetine HCl) 60 Mg Capsule.dr, 60 MG PO HS, (Reported) Entered as Reported by: ROSA REED on 06/24/18 1336 Fluticasone Propionate (Fluticasone Propionate) 16 Gm [place].susp, 2 SPRAYS NS HS PRN for ALLERGIES, (Reported) Entered as Reported by: ROSA REED on 06/24/18 1401 Gabapentin (Gabapentin) 300 Mg Capsule, 600 MG PO HS, (Reported) Entered as Reported by: ROSA REED on 06/24/18 133 Hydrocodone Bit/Acetaminophen (Lortab 5 Mg Tablet) 1 Each Tablet, 1 TAB PO TID PRN for PAIN-MODERATE, (Reported) Entered as Reported by: ROSA REED on 06/24/18 133 Ipratropium/Albuterol Sulfate (Iprat-Albut 0.5-3(2.5) mg/3 ml) 3 Ml Ampul.neb, 3 ML IH Q6H PRN for SHORTNESS OF BREATH, (Reported) Entered as Reported by: ROSA REED on 06/24/18 1347 Lurasidone HCl (Latuda) 80 Mg Tablet, 80 MG PO HS, (Reported) Entered as Reported by: ROSA REED on 06/24/18 133 Metformin HCl (Metformin HCl) 1,000 Mg Tablet, 1,000 MG PO HS, (Reported) Entered as Reported by: ROSA REED on 06/24/18 1401 Montelukast Sodium (Singulair) 10 Mg Tablet, 10 MG PO HS, (Reported) Entered as Reported by: ROSA REED on 06/24/18 133 Oxycodone HCl/Acetaminophen (Oxycodone-Acetaminophen 5-325) 5 Mg-325 Mg Tablet, 1 EACH PO Q6H PRN for PAIN-SEVERE (8-10) Prescribed by: MICHEL FARLEY on 09/09/228 Pantoprazole Sodium (Protonix) 40 Mg Tablet.dr, 40 MG PO HS, (Reported) Entered as Reported by: ROSA REED on 06/24/18 1336 Prednisone (Prednisone) 20 Mg Tab, 40 MG PO DAILY Prescribed by: GERALDINE CARDONA on 10/31/22 1006 Promethazine HCl (Promethazine Tablet) 25 Mg Tablet, 25 MG PO Q6H PRN for NAUSE A/VOMITING-2ND LINE, (Reported) Entered as Reported by: ROSA REED on 06/24/18 1336 Promethazine HCl (Promethazine Tablet) 25 Mg Tablet, 25 MG PO HS, (Reported) Entered as Reported by: ROSA REED on 06/24/18 1401 Review of Systems Review of Systems Constitutional: No chills, No diaphoresis, No dizziness, No fever; malaise; No weakness; other (feeling warm, but did not check fever) Respiratory: No cough; dyspnea on exertion, short of breath Cardiovascular: no symptoms reported (TAMARA MOURA) Past Ufsszyp-Znqlwg-Ukqogd Hx Immunizations Up To Date Tetanus Booster (TDap): Unknown PED Vaccines UTD: No First/Initial COVID19 Vaccinat: 2020 Second COVID19 Vaccination [place]: 2020 (TAMARA MOURA) Seasonal Allergies Seasonal Allergies: No (TAMARA MOURA) Past Medical History Surgery/Hospitalization HX: COPD, CAD with stent placement, Lung mass removal 08/22/2022 [facility] Surgeries: Yes (CARDIAC CATH WITH STENT X 1) Cardiac, Coronary Stent Respiratory: No Pneumonia, Chronic Bronchitis, COPD, Emphysema Currently Using CPAP: No Currently Using BIPAP: No Cardiac: Yes Coronary Artery Disease, Heart Attack, High Cholesterol Neurological: No Sexually Transmitted Disease: No HIV/AIDS: No Genitourinary: No Prostate Problems Gastrointestinal: Yes Gastroesophageal Reflux, Gastrointestinal Bleed, Esophagitis, Ulcer Musculoskeletal: No Arthritis, Chronic Back Pain Endocrine: No HEENT: No Cataract Loss of Vision: Bilateral Hearing Impairment: Hard of Hearing Cancer: Yes Colon Did You Recieve Any Treatments: Yes What Type of Treatment Did You: Chemotherapy Psychosocial: No Integumentary: No Blood Disorders: No Adverse Reaction/Blood Tranf: No (TAMARA MOURA) Physical Exam Vital Signs Vital Signs - First Documented (GERALDINE ARCE MD) Vital Signs Capillary Refill : (TAMARA MOURA) Height, Weight, BMI Height: 5'9.00" Weight: 185lbs. 4.0oz. 84.152230yh; 22.00 BMI Method:Stated General Appearance: No Apparent Distress, WD/WN Respiratory: Chest Non Tender, No Accessory Muscle Use, No Respiratory Dist ress, Crackles (Lower right lung), Decreased Breath Sounds (bilaterally); No Wheezing Cardiovascular: Regular Rate, Rhythm, No Murmur, Normal Peripheral Pulses Neurologic/Psychiatric: Alert, Oriented x3, No Motor/Sensory Deficits, Normal Mood/Affect Skin: Normal Color, Warm/Dry (TAMARA MOURA) Focused Exam Lactate Level 10/31/22 07:20: Lactic Acid Level 1.71 (GERALDINE ARCE MD) Lactic Acid Level Laboratory Tests Test 10/31/22 07:20 Lactic Acid Level 1.71 MMOL/L (0.50-2.00) (GERALDINE ARCE MD) Progress/Results/Core Measures Suspected Sepsis SIRS Temperature: Pulse: Respiratory Rate: Laboratory Tests 10/31/22 07:20: Blood Pressure / Mean: Laboratory Tests 10/31/22 07:20: (TAMARA MOURA) Results/Orders Lab Results Laboratory Tests Test 10/31/22 07:20 10/31/22 07:25 10/31/22 09:10 Range/Units White Blood Count 24.3 H 4.3-11.0 10^3/uL Red Blood Count 3.35 L 4.30-5.52 10^6/uL Hemoglobin 7.9 L 13.3-17.7 g/dL Hematocrit 25 L 40-54 % Mean Corpuscular Volume 74 L 80-99 fL Mean Corpuscular Hemoglobin 24 L 25-34 pg Mean Corpuscular Hemoglobin Concent 32 32-36 g/dL Red Cell Distribution Width 18.0 H 10.0-14.5 % Platelet Count 259 130-400 10^3/uL Mean Platelet Volume 9.7 9.0-12.2 fL Immature Granulocyte % (Auto) 1 % Neutrophils (%) (Auto) 92 H 42-75 % Lymphocytes (%) (Auto) 2 L 12-44 % Monocytes (%) (Auto) 4 0-12 % Eosinophils (%) (Auto) 0 0-10 % Basophils (%) (Auto) 0 0-10 % Neutrophils # (Auto) 22.4 H 1.8-7.8 10^3/uL Lymphocytes # (Auto) 0.5 L 1.0-4.0 10^3/uL Monocytes # (Auto) 1.0 0.0-1.0 10^3/uL Eosinophils # (Auto) 0.0 0.0-0.3 10^3/uL Basophils # (Auto) 0.1 0.0-0.1 10^3/uL Immature Granulocyte # (Auto) 0.3 H 0.0-0.1 10^3/uL Neutrophils % (Manual) 82 % Lymphocytes % (Manual) 2 % Monocytes % (Manual) 4 % Band Neutrophils 12 % Platelet Estimate NORMAL Hypochromasia 3+ Microcytosis 2+ Prothrombin Time 13.6 12.2-14.7 SEC INR Comment 1.0 0.8-1.4 Activated Partial Thromboplast Time 28 24-35 SEC Sodium Level 130 L 135-145 MMOL/L Potassium Level 4.0 3.6-5.0 MMOL/L Chloride Level 91 L 98-107 MMOL/L Carbon Dioxide Level 30 21-32 MMOL/L Anion Gap 9 5-14 MMOL/L Blood Urea Nitrogen 6 L 7-18 MG/DL Creatinine 0.49 L 0.60-1.30 MG/DL Estimat Glomerular Filtration Rate 115 BUN/Creatinine Ratio 12 Glucose Level 146 H 70-105 MG/DL Lactic Acid Level 1.71 0.50-2.00 MMOL/L Calcium Level 8.8 8.5-10.1 MG/DL Corrected Calcium 8.9 8.5-10.1 MG/DL Total Bilirubin 0.7 0.1-1.0 MG/DL Aspartate Amino Transf (AST/SGOT) 10 5-34 U/L Alanine Aminotransferase (ALT/SGPT) 6 0-55 U/L Alkaline Phosphatase 68 40-136 U/L C-Reactive Protein 4.49 H <0.50 MG/DL Pro-B-Type Natriuretic Peptide 459.3 H <125.0 PG/ML Total Protein 6.8 6.4-8.2 GM/DL Albumin 3.9 3.2-4.5 GM/DL Influenza Type A (RT-PCR) Not Detected Not Detecte Influenza Type B (RT-PCR) Not Detected Not Detecte SARS-CoV-2 RNA (RT-PCR) Not Detected Not Detecte Urine Color YELLOW Urine Clarity CLEAR Urine pH 7.0 5-9 Urine Specific [place] 1.015 L 1.016-1.022 Urine Protein NEGATIVE NEGATIVE Urine Glucose (UA) NEGATIVE NEGATIVE Urine Ketones NEGATIVE NEGATIVE Urine Nitrite NEGATIVE NEGATIVE Urine Bilirubin NEGATIVE NEGATIVE Urine Urobilinogen 1.0 < = 1.0 MG/DL Urine Leukocyte Esterase NEGATIVE NEGATIVE Urine RBC (Auto) NEGATIVE NEGATIVE Urine RBC NONE /HPF Urine WBC RARE /HPF Urine Squamous Epithelial Cells RARE /HPF Urine Crystals NONE /LPF Urine Bacteria NEGATIVE /HPF Urine Casts NONE /LPF Urine Mucus NEGATIVE /LPF Urine Culture Indicated CULTURE PENDING (GERALDINE ARCE MD) My Orders Orders - GERALDINE ARCE MD Cbc With Automated Diff (10/31/22 07:32) Comprehensive Metabolic Panel (10/31/22 07:32) Probnp Fs (10/31/22 07:32) Crp Fs (10/31/22 07:32) Covid 19 Inhouse Test (10/31/22 07:32) Influenza A And B By Pcr (10/31/22 07:32) Ed Iv/Invasive Line Start (10/31/22 07:32) O2 (10/31/22 07:32) Monitor-Rhythm Ecg Trace Only (10/31/22 07:32) Chest 1 View Ap/Pa Only (10/31/22 07:32) Manual Differential (10/31/22 07:20) Blood Culture (10/31/22 08:01) Urinalysis (10/31/22 08:01) Urine Culture (10/31/22 08:01) Protime With Inr (10/31/22 08:01) Partial Thromboplastin Time (10/31/22 08:01) Vital Signs Adult Sepsis Patie Q15M (10/31/22 08:01) Remove Rings In Anticipation O (10/31/22 08:01) Lactic Acid Analyzer (10/31/22 08:01) Piperacillin Sodium/Tazobactam (Zosyn Vi (10/31/22 08:15) Acetaminophen Tablet (Tylenol Tablet) (10/31/22 08:15) Oxycodone Immediate Rel Tablet (Oxyir Ta (10/31/22 10:00) (GERALDINE ARCE MD) Medications Given in ED Current Medications Medications Dose Ordered Sig/Edgar Route Start Time Stop Time Status Last Admin Dose Admin Acetaminophen 1,000 mg ONCE ONCE PO 10/31/22 08:15 10/31/22 08:16 DC 10/31/22 08:09 1,000 MG Oxycodone HCl 2.5 mg ONCE ONCE PO 10/31/22 10:00 10/31/22 10:01 DC 10/31/22 10:03 2.5 MG Piperacillin Sod/ Tazobactam Sod 4.5 gm/Sodium Chloride 100 ml @ 200 mls/hr ONCE ONCE IV 10/31/22 08:15 10/31/22 08:44 DC 10/31/22 08:09 200 MLS/HR (GERALDINE ARCE MD) Vital Signs/I&O 10/31/22 10/31/22 10/31/22 10/31/22 07:20 07:20 07:20 10:09 Temp 37.8 Pulse 107 68 Resp 16 18 B/P (MAP) 114/65 (81) 124/68 Pulse Ox 100 100 98 O2 Delivery Nasal Cannula Nasal Cannula High Flow N/C Room Air O2 Flow Rate 2.00 2.00 3.00 (GERALDINE ARCE MD) Vital Signs/I&O Capillary Refill : (TAMARA MOURA) Progress Note #1: Time: 08:07 Progress Note Patient was interviewed and examined by me upon arrival. Report was received from EMS. EMS and patient are primary historians. Chart was reviewed also. He was noted to have history of coronary artery disease with patent stent noted on angiography in 2018. There was no echo or other documentation of heart failure. Patient usually uses oxygen at 2 to 3 L at home. His oxygen saturation is 100% on 2 L at this time. He did receive a DuoNeb treatment by EMS and states that improved his breathing. He has diminished breath sounds with crackles in the right lower lung but no wheezing noted on my exam. He has no significant p eripheral edema. Patient is noted to have significant leukocytosis on the CBC. BNP and CRP should help differentiate between pneumonia, heart failure, or both. In the meantime, he is receiving Zosyn 4.5 g IV for treatment of presumptive pneumonia, and blood cultures and lactic acid are being run. Heart rhythm is sinus on the quality assurance monitor. Progress Note #2: Progress Note And work-up patient was found to have a left lower lobe pneumonia and severe anemia. He responded well to treatments for COPD. Because of his significant COPD and comorbidities, admission was recommended. Patient declined admission. He was prescribed antibiotics and steroids and left AGAINST MEDICAL ADVICE. Zosyn was given prior to his departure. (GERALDINE ARCE MD) Diagnostic Imaging Diagonstic Imaging: Xray Plain Films/CT/US/NM/MRI: chest Comments Chest x-ray was viewed by me. By my interpretation there are infiltrates in the right lower lung and left midlung with possibility of pulmonary congestion. This correlates well with radiologist interpretation as below: NAME: ASHWIN YO [facility] REC#: [id number] PT STATUS: REG ER : 1955 PHYSICIAN: GERALDINE ARCE MD ADMIT DATE: 10/31/22/ER FS Draft Date of Exam:10/31/22 CHEST 1 VIEW AP/PA ONLY INDICATION: Short of breath EXAMINATION: Chest 10/31/2022 COMPARISON: 09/09/2022 FINDINGS: Coarsened interstitial markings noted worsened since previous imaging suggesting mild edema superimposed upon chronic findings. There are no effusions. No pneumothorax. Heart is unremarkable. Pulmonary vasculature is congested. IMPRESSION: 1. Findings of pulmonary edema superimposed upon chronic changes. Mild scattered infiltrates not excluded. Dictated on workstation # [id number] Dict: 10/31/22 0747 Trans: 10/31/22 0749 [facility] [id number] Interpreted by: OMAIRA MONAE MD (GERALDINE ARCE MD) Departure Impression Primary Impression: Right lower lobe pneumonia Qualified Codes: J18.9 - Pneumonia, unspecified organism Additional Impressions: COPD exacerbation CHF exacerbation Qualified Codes: I50.9 - Heart failure, unspecified Severe anemia Left against medical advice Disposition: AGAINST MEDICAL ADVICE Condition: Against Medical Advice Departure-Patient Inst. Decision time for Depature: 10:03 (GERALDINE ARCE MD) Referrals: NO,LOCAL PHYSICIAN (PCP/Family) Primary Care Physician Patient Instructions: CHF, COPD Exacerbation, Adult ED, Community-Acquired Pneumonia in Adults Add. Discharge Instructions: Complete your antibiotics as prescribed. Follow-up with your doctor soon as possible. Call today for an appointment. Continue to use your nebulized breathing treatments every 4 hours as needed for shortness of breath. Complete the prednisone steroids as prescribed. Take your first dose promptly after filling the prescription. Take prednisone early in the day to avoid sleep disturbance and with food or milk to avoid stomach upset. Continue using your oxygen at 2 to 4 L/min to keep oxygen saturations greater than 92%. Return to care in the emergency room if you have worsening symptoms or you change your mind about admission to the hospital. You are leaving the emergency department AGAINST MEDICAL ADVICE as admission to the hospital was recommended due to your chronic health problems. Scripts Prednisone (Prednisone) 20 Mg Tab 40 MG PO DAILY, #10 TAB 0 Refills Prov: GERALDINE ARCE MD 10/31/22 Azithromycin (Azithromycin) 250 Mg Tablet 250 MG PO UD, #6 TAB TAKE 2 TABLETS ON DAY ONE THEN TAKE 1 TABLET DAILY FOR FOUR MORE DAYS Prov: GERALDINE ARCE MD 10/31/22 Cefdinir (Cefdinir) 300 Mg Capsule 300 MG PO BID, #20 CAP 0 Refills Prov: GERALDINE ARCE MD 10/31/22 Medical Student Attestation and Attending Note: I have personally interviewed and examined this patient along with Tamara Moura, MS 4. I have reviewed student documentation including history, physical, and assessments. I agree with the documentation except where otherwise noted. Exam: General: Alert, oriented, no acute distress, well developed HEENT: Normocephalic and atraumatic, oropharynx dry Heart: Regular rate and rhythm without murmur, distant heart sounds Lungs: Diminished breath sounds bilaterally, crackles in the right lower lung, no wheezing Abdomen: Soft, nontender, nondistended, normal bowel sounds Neuropsych: Alert, oriented, no focal deficits Ext: No LE edema, pink Skin: Warm and dry without rashes (GERALDINE ARCE MD) TAMARA MOURA Oct 31, 2022 07:35 GERALDINE ARCE MD Oct 31, 2022 08:33
[2022-10-31 07:48] LABS: BASOPHILS # (AUTO) 0.1 10^3/uL (0.0-0.1); BASOPHILS % (AUTO) 0 % (0-10); EOSINOPHILS % (AUTO) 0 % (0-10); HEMATOCRIT 25 % (40-54); HEMOGLOBIN 7.9 g/dL (13.3-17.7); LYMPHOCYTES # (AUTO) 0.5 10^3/uL (1.0-4.0); LYMPHOCYTES % (AUTO) 2 % (12-44); MEAN CORPUSCULAR HEMOGLOBIN 24 pg (25-34); MEAN CORPUSCULAR HGB CONC 32 g/dL (32-36); MEAN CORPUSCULAR VOLUME 74 fL (80-99); MEAN PLATELET VOLUME 9.7 fL (9.0-12.2); MONOCYTES % (AUTO) 4 % (0-12); NEUTROPHILS # (AUTO) 22.4 10^3/uL (1.8-7.8); NEUTROPHILS % (AUTO) 92 % (42-75); PLATELET COUNT 259 10^3/uL (130-400); WHITE BLOOD COUNT 24.3 10^3/uL (4.3-11.0)
--- NOTE | 2022-10-31 07:49 | Diagnostic Imaging Report ---
INDICATION: Short of breath EXAMINATION: Chest 10/31/2022 COMPARISON: 09/09/2022 FINDINGS: Coarsened interstitial markings noted worsened since previous imaging suggesting mild edema superimposed upon chronic findings. There are no effusions. No pneumothorax. Heart is unremarkable. Pulmonary vasculature is congested. IMPRESSION: 1. Findings of pulmonary edema superimposed upon chronic changes. Mild scattered infiltrates not excluded. Dictated by: Dictated on workstation # [id number]
[2022-10-31] MEDS ORDERED: PIPERACILLIN SODIUM/TAZOBACTAM 4.5 GM in NS (IVPB) 100 ML IV ONE (08:15)
[2022-10-31] MEDS ORDERED: ACETAMINOPHEN 500 MG TAB (TYLENOL) PO ONE (08:15)
[2022-10-31 08:16] LABS: BILIRUBIN,TOTAL 0.7 MG/DL (0.1-1.0); CALCIUM 8.8 MG/DL (8.5-10.1); CREATININE SERUM 0.49 MG/DL (0.60-1.30); TOTAL PROTEIN 6.8 GM/DL (6.4-8.2)
[2022-10-31 08:17] LABS: ALBUMIN 3.9 GM/DL (3.2-4.5)
[2022-10-31 08:37] LABS: PROTHROMBIN TIME PATIENT 13.6 SEC (12.2-14.7)
[2022-10-31 08:38] LABS: BAND NEUTROPHILS 12 %; HYPOCHROMASIA 3+; LYMPHOCYTES % (MANUAL) 2 %; MICROCYTOSIS 2+; MONOCYTES % (MANUAL) 4 %; NEUTROPHILS % (MANUAL) 82 %; PLATELET ESTIMATE NORMAL
[2022-10-31 09:15] LABS: BILIRUBIN,URINE NEGATIVE (NEGATIVE); CLARITY,URINE CLEAR; COLOR,URINE YELLOW; GLUCOSE, URINE (UA) NEGATIVE (NEGATIVE); KETONES,URINE NEGATIVE (NEGATIVE); LEUKOCYTE ESTERASE ,URINE NEGATIVE (NEGATIVE); NITRITE,URINE NEGATIVE (NEGATIVE); PROTEIN,URINE NEGATIVE (NEGATIVE)
[2022-10-31 09:23] LABS: BACTERIA,URINE NEGATIVE /HPF; SQUAMOUS EPITHELIAL CELL,UR RARE /HPF; WBC,URINE RARE /HPF
[2022-10-31] MEDS ORDERED: PRD20T PO (10:06)
[2022-10-31] MEDS ORDERED: CEFD300C3 PO (10:06)
[2022-10-31] MEDS ORDERED: AZIT250T12 PO (10:06)
[2022-10-31 10:09] VITALS: BP 124/68
== END 2022-10-31 10:10 | disposition left against medical advice (07) ==
LOC: EDUNIT# 07:12 → ER FS 07:13
DX: J18.9 Pneumonia, unspecified organism (principal); J44.1 Chronic obstructive pulmonary disease with (acute) exacerbation; I50.9 Heart failure, unspecified; D64.9 Anemia, unspecified; Z99.81 Dependence on supplemental oxygen; Z20.822 Contact with and (suspected) exposure to COVID-19
CPT/HCPCS: 36415; 71045; 80053; 81000; 83605; 83880; 85007; 85027; 85610; 85730; 86141; 87040; 87088; 87636; 93041

== ENCOUNTER 2022-11-07 09:03 | Emergency (ER) | payer MEDICAID, OTHER ==
[~2022-11-07] VITALS: Ht 175 cm; Wt 70.0 kg
[~2022-11-07 09:03] MED LIST changes: +AZIT250T12 PO; +CEFD300C3 PO
[2022-11-07 09:18] VITALS: BP 113/50
--- NOTE | 2022-11-07 09:26 | ED Respiratory ---
General Chief Complaint: Respiratory Problems Stated Complaint: CHEST PAIN; SOB Source: patient Exam Limitations: no limitations History of Present Illness Date Seen by Provider: Nov 07, 2022 Time Seen by Provider: 09:10 Initial Comments 66-year-old male presents to the emergency department today for shortness of breath. He states he has chronic shortness of breath, wears 2 L of oxygen via nasal cannula [id number] at home. He is supposed to wear when he leaves the home as well however had been out of portable oxygen until recently. He does currently have it and did wear it on the way here.. He states he was going to use a breathing treatment at home but "my thought I was sicker than that and told me to come be seen first." He has not had a breathing treatment since yesterday. He does have severe COPD and continues to smoke 1 pack/day of cigarettes. He does endorse some tightness in his left anterior chest that started about an hour prior to arrival. He states it is worse with pushing in the area and deep inspiration. He has had similar pains recently. He was actually seen here on the and left AGAINST MEDICAL ADVICE when it was recommended he be admitted at that time. He states he had a birthday republican to go to and did not want to stay at that time. His symptoms have been present since that visit and are relatively unchanged. He denies any fevers or chills. Allergies and Home Medications Allergies Coded Allergies: doxycycline (Verified Allergy, Severe, Rash, 06/24/18) levofloxacin (Verified Allergy, Severe, Rash, 06/24/18) Patient Home Medication List Home Medication List Reviewed: Yes Apixaban (Eliquis) 2.5 Mg Tablet, 2.5 MG PO HS, (Reported) Entered as Reported by: ROSA REED on 06/24/18 1336 Aspirin (Aspirin EC) 81 Mg Tablet.dr, 81 MG PO HS, (Reported) Entered as Reported by: ROSA REED on 06/24/18 133 Azithromycin (Azithromycin) 250 Mg Tablet, 250 MG PO UD Prescribed by: GERALDINE CARDONA on 10/31/22 1006 Cefdinir (Cefdinir) 300 Mg Capsule, 300 MG PO BID Prescribed by: GERALDINE CARDONA on 10/31/22 1006 Cetirizine HCl (Zyrtec) 10 Mg Tablet, 10 MG PO HS, (Reported) Entered as Reported by: ROSA REED on 06/24/18 133 Cyanocobalamin (Vitamin B-12) (Vitamin B-12) 500 Mcg Tablet, 1,000 MCG PO HS, (Reported) Entered as Reported by: ROSA REED on 06/24/18 133 Duloxetine HCl (Duloxetine HCl) 60 Mg Capsule.dr, 60 MG PO HS, (Reported) Entered as Reported by: ROSA REED on 06/24/18 1336 Fluticasone Propionate (Fluticasone Propionate) 16 Gm [place].susp, 2 SPRAYS NS HS PRN for ALLERGIES, (Reported) Entered as Reported by: ROSA REED on 06/24/18 1401 Gabapentin (Gabapentin) 300 Mg Capsule, 600 MG PO HS, (Reported) Entered as Reported by: ROSA REED on 06/24/18 1336 Hydrocodone Bit/Acetaminophen (Lortab 5 Mg Tablet) 1 Each Tablet, 1 TAB PO TID PRN for PAIN-MODERATE, (Reported) Entered as Reported by: ROSA REED on 06/24/18 133 Ipratropium/Albuterol Sulfate (Iprat-Albut 0.5-3(2.5) mg/3 ml) 3 Ml Ampul.neb, 3 ML IH Q6H PRN for SHORTNESS OF BREATH, (Reported) Entered as Reported by: ROSA REED on 06/24/18 1347 Lurasidone HCl (Latuda) 80 Mg Tablet, 80 MG PO HS, (Reported) Entered as Reported by: ROSA REED on 06/24/18 133 Metformin HCl (Metformin HCl) 1,000 Mg Tablet, 1,000 MG PO HS, (Reported) Entered as Reported by: ROSA REED on 06/24/18 1401 Montelukast Sodium (Singulair) 10 Mg Tablet, 10 MG PO HS, (Reported) Entered as Reported by: ROSA REED on 06/24/18 133 Oxycodone HCl/Acetaminophen (Oxycodone-Acetaminophen 5-325) 5 Mg-325 Mg Tablet, 1 EACH PO Q6H PRN for PAIN-SEVERE (8-10) Prescribed by: MICHEL FARLEY on 11/27/22 2228 Pantoprazole Sodium (Protonix) 40 Mg Tablet.dr, 40 MG PO HS, (Reported) Entered as Reported by: ROSA REED on 06/24/18 1336 Prednisone (Prednisone) 20 Mg Tab, 40 MG PO DAILY Prescribed by: GERALDINE CARDONA on 10/31/22 1006 Promethazine HCl (Promethazine Tablet) 25 Mg Tablet, 25 MG PO Q6H PRN for NAUSEA/VOMITING-2ND LINE, (Reported) Entered as Reported by: ROSA REED on 06/24/18 1336 Promethazine HCl (Promethazine Tablet) 25 Mg Tablet, 25 MG PO HS, (Reported) Entered as Reported by: ROSA REED on 06/24/18 1401 Review of Systems Review of Systems Constitutional: no symptoms reported EENTM: no symptoms reported Respiratory: short of breath Cardiovascular: chest pain Gastrointestinal: no symptoms reported Genitourinary: no symptoms reported Musculoskeletal: no symptoms reported Skin: no symptoms reported Psychiatric/Neurological: No Symptoms Reported Hematologic/Lymphatic: No Symptoms Reported Immunological/Allergic: no symptoms reported Past Wctlerc-Jbsxax-Gbfgmk Hx Patient Social History Tobacco Use?: Yes Tobacco type used: Cigarettes Smoking Status: Current Everyday Smoker Substance use?: No Alcohol Use?: No Pt feels they are or have been: No Immunizations Up To Date Tetanus Booster (TDap): Unknown PED Vaccines UTD: No First/Initial COVID19 Vaccinat: 2020 Second COVID19 Vaccination [place]: 2020 Third COVID19 Vaccination Date: 2021 Seasonal Allergies Seasonal Allergies: No Past Medical History Surgery/Hospitalization HX: COPD, CAD with stent placement, Lung mass removal 08/22/2022 [facility] Surgeries: Yes (CARDIAC CATH WITH STENT X 1) Cardiac, Coronary Stent Respiratory: No Pneumonia, Chronic Bronchitis, COPD, Emphysema Currently Using CPAP: No Currently Using BIPAP: No Cardiac: Yes Coronary Artery Disease, Heart Attack, High Cholesterol Neurological: No Sexually Transmitted Disease: No HIV/AIDS: No Genitourinary: No Prostate Problems Gastrointestinal: Yes Gastroesophageal Reflux, Gastrointestinal Bleed, Esophagitis, Ulcer Musculoskeletal: No Arthritis, Chronic Back Pain Endocrine: No HEENT: No Cataract Loss of Vision: Bilateral Hearing Impairment: Hard of Hearing Cancer: Yes Colon Did You Recieve Any Treatments: Yes What Type of Treatment Did You: Chemotherapy Psychosocial: No Integumentary: No Blood Disorders: No Adverse Reaction/Blood Tranf: No Family Medical History Reviewed Nursing Family Hx No Pertinent Family Hx Physical Exam Vital Signs - First Documented 11/07/22 11/07/22 09:14 09:18 Temp 36.2 Pulse 80 Resp 17 B/P (MAP) 155/81 Pulse Ox 95 O2 Delivery Room Air O2 Flow Rate 2.00 Capillary Refill : Height: 5'9.00" Weight: 185lbs. 4.0oz. 84.024544ws; 22.00 BMI Method:Stated General Appearance: WD/WN, no apparent distress HEENT: normal ENT inspection, TMs normal, pharynx normal Neck: non-tender, supple, normal inspection Respiratory: other (Tight lung sounds with inspiratory and expiratory wheezes bilaterally. Mild increased work of breathing. Tenderness to palpation left anterior chest wall without any crepitus, deformity. Equal breath sounds bilaterally.) Cardiovascular: regular rate, rhythm, no edema, no murmur Gastrointestinal: normal bowel sounds, non tender, soft, no organomegaly Extremities: normal range of motion, non-tender, normal inspection, no pedal edema, no calf tenderness Neurologic/Psychiatric: alert, normal mood/affect, oriented x 3 Skin: normal color, warm/dry Lymphatic: no adenopathy Progress/Results/Core Measures Suspected Sepsis SIRS Temperature: Pulse: Respiratory Rate: Laboratory Tests 11/07/22 09:15: White Blood Count 8.3 Blood Pressure / Mean: Laboratory Tests 11/07/22 09:15: Creatinine 0.52L, Platelet Count 377 Results/Orders Lab Results Laboratory Tests Test 11/07/22 09:15 Range/Units White Blood Count 8.3 4.3-11.0 10^3/uL Red Blood Count 3.76 L 4.30-5.52 10^6/uL Hemoglobin 8.4 L 13.3-17.7 g/dL Hematocrit 28 L 40-54 % Mean Corpuscular Volume 75 L 80-99 fL Mean Corpuscular Hemoglobin 22 L 25-34 pg Mean Corpuscular Hemoglobin Concent 30 L 32-36 g/dL Red Cell Distribution Width 18.2 H 10.0-14.5 % Platelet Count 377 130-400 10^3/uL Mean Platelet Volume 9.5 9.0-12.2 fL Immature Granulocyte % (Auto) 0 % Neutrophils (%) (Auto) 70 42-75 % Lymphocytes (%) (Auto) 15 12-44 % Monocytes (%) (Auto) 10 0-12 % Eosinophils (%) (Auto) 4 0-10 % Basophils (%) (Auto) 0 0-10 % Neutrophils # (Auto) 5.9 1.8-7.8 10^3/uL Lymphocytes # (Auto) 1.2 1.0-4.0 10^3/uL Monocytes # (Auto) 0.8 0.0-1.0 10^3/uL Eosinophils # (Auto) 0.4 H 0.0-0.3 10^3/uL Basophils # (Auto) 0.0 0.0-0.1 10^3/uL Immature Granulocyte # (Auto) 0.0 0.0-0.1 10^3/uL Sodium Level 135 135-145 MMOL/L Potassium Level 4.0 3.6-5.0 MMOL/L Chloride Level 92 L 98-107 MMOL/L Carbon Dioxide Level 35 H 21-32 MMOL/L Anion Gap 8 5-14 MMOL/L Blood Urea Nitrogen 6 L 7-18 MG/DL Creatinine 0.52 L 0.60-1.30 MG/DL Estimat Glomerular Filtration Rate 113 BUN/Creatinine Ratio 12 Glucose Level 251 H 70-105 MG/DL Calcium Level 9.3 8.5-10.1 MG/DL Troponin I < 0.30 <0.30 NG/ML My Orders Orders - FOREST HUERTA DO Albuterol/Ipra Inhalation Soln (Duoneb I (11/07/22 09:30) Svn Small Volume Nebulizer (11/07/22 09:16) Chest Pa/Lat (2 View) (11/07/22 09:16) Cbc With Automated Diff (11/07/22 09:20) Basic Metabolic Panel (11/07/22 09:20) Troponin I Fs (11/07/22 09:20) Medications Given in ED Current Medications Medications Dose Ordered Sig/Edgar Route Start Time Stop Time Status Last Admin Dose Admin Albuterol/ Ipratropium 3 ml ONCE ONCE INH 11/07/22 09:30 11/07/22 09:31 DC 11/07/22 09:23 3 ML Vital Signs/I&O 11/07/22 11/07/22 09:14 09:18 Temp 36.2 36.8 Pulse 80 78 Resp 17 24 B/P (MAP) 155/81 113/50 (71) Pulse Ox 95 84 O2 Delivery Room Air Room Air O2 Flow Rate 2.00 Capillary Refill : Departure Communication (Admissions) CXR shows no evidence for PNA, edema, mass. No PTX. Anemia identified previous has actually improved. No active bleeding. WBC was significantly elevated at last evaluation and now normal. He is still taking cefdinir. Has completed his course of steroid medication. EKG is non-ischemic and troponin is negative. He was recently tested for covid and flu which and was negative. This is likely related to COPD. Has long discussion about using nebulizers at home as well as compliance with home and portable O2. It seems he stops using this intermittently and then gets in trouble and has difficulty keeping O2 up. I did speak with his who provides this. He acknowledges that this is a problem. Did [employer] [place] him on smoking cessation. WIll discharge with another short course of steroid medication. Impression Primary Impression: COPD exacerbation Additional Impression: Tobacco dependence Disposition: 01 HOME, SELF-CARE Condition: Improved Departure-Patient Inst. Referrals: NO,LOCAL PHYSICIAN (PCP/Family) Primary Care Physician Patient Instructions: Community-Acquired Pneumonia, Adult (DC) Add. Discharge Instructions: You were seen in the emergency department for shortness of breath. This is likely related to COPD. It is important to use your oxygen around the clock as previously recommended. I will give you another short course of steroids. Continue your current antibiotics until they are gone. Use nebulizers at home for shortness of breath. Return to the ER if you have severe shortness of breath despite using nebulizers and using your oxygen. You may increase your oxygen to 4 liters to keep your oxygen up short term, but need to return to the ER if you need more oxygen thatn this to keep oxygen levels greater than 90%. Call your doctor to schedule a follow up appointment within the next week. All discharge instructions reviewed with patient and/or family. Voiced understanding. FOREST HUERTA DO Nov 07, 2022 09:26
[2022-11-07] MEDS ORDERED: RT-ALBUTEROL/IPRATROPIUM 3 ML (DUONEB) VIAL INH ONE (09:30)
[2022-11-07 09:39] LABS: BASOPHILS % (AUTO) 0 % (0-10); EOSINOPHILS # (AUTO) 0.4 10^3/uL (0.0-0.3); EOSINOPHILS % (AUTO) 4 % (0-10); HEMATOCRIT 28 % (40-54); HEMOGLOBIN 8.4 g/dL (13.3-17.7); LYMPHOCYTES # (AUTO) 1.2 10^3/uL (1.0-4.0); LYMPHOCYTES % (AUTO) 15 % (12-44); MEAN CORPUSCULAR HEMOGLOBIN 22 pg (25-34); MEAN CORPUSCULAR HGB CONC 30 g/dL (32-36); MEAN CORPUSCULAR VOLUME 75 fL (80-99); MEAN PLATELET VOLUME 9.5 fL (9.0-12.2); MONOCYTES # (AUTO) 0.8 10^3/uL (0.0-1.0); MONOCYTES % (AUTO) 10 % (0-12); NEUTROPHILS # (AUTO) 5.9 10^3/uL (1.8-7.8); NEUTROPHILS % (AUTO) 70 % (42-75); PLATELET COUNT 377 10^3/uL (130-400); WHITE BLOOD COUNT 8.3 10^3/uL (4.3-11.0)
--- NOTE | 2022-11-07 09:50 | Diagnostic Imaging Report ---
EXAMINATION: Chest 2 view HISTORY: Chest pain and shortness of breath. COMPARISON: 10/31/2022 FINDINGS: Lungs are hyperinflated. There are scattered areas of scarring. No edema or pneumonia. There are small pleural effusions. No pneumothorax. Heart size is normal. IMPRESSION: 1. Hyperinflated lungs with scattered areas of scarring. Dictated by: Dictated on workstation # [id number]
[2022-11-07 10:07] LABS: BUN/CREATININE RATIO 12; CALCIUM 9.3 MG/DL (8.5-10.1); CARBON DIOXIDE 35 MMOL/L (21-32); CHLORIDE 92 MMOL/L (98-107); CREATININE SERUM 0.52 MG/DL (0.60-1.30); GFR ESTIMATED 113; GLUCOSE 251 MG/DL (70-105); SODIUM 135 MMOL/L (135-145)
[2022-11-07] MEDS ORDERED: PRD50T PO (10:31)
== END 2022-11-07 10:35 | disposition home or self-care (01) ==
LOC: EDUNIT# 09:03 → ER FS 09:04
DX: J43.9 Emphysema, unspecified (principal); F17.210 Nicotine dependence, cigarettes, uncomplicated
CPT/HCPCS: 36415; 71046; 80048; 84484; 85025; 94640

== ENCOUNTER 2022-11-07 19:25 | Emergency (ER) | payer MEDICAID ==
[~2022-11-07] VITALS: Ht 172.7 cm; Wt 66.0 kg
[~2022-11-07 19:25] MED LIST changes: +PRD50T PO
[2022-11-07 19:30] VITALS: BP 119/56
--- NOTE | 2022-11-07 19:39 | ED Dyspnea ---
General Stated Complaint: SOB Source of Information: Patient Exam Limitations: No Limitations History of Present Illness Date Seen by Provider: Nov 07, 2022 Time Seen by Provider: 19:26 Initial Comments 66-year-old male presents to the emergency department today for shortness of breath. He has COPD and was seen here earlier in the day for similar symptoms. He was also seen on 10/31 with similar symptoms and at that time actually recommended to be admitted however he signed out AMA. He told me initially that he had a birthday democrat to go to at that time. This morning his work-up was unremarkable including chest x-ray which was negative. He had been off of his home O2 and his oxygen was initially low however he rebounded quickly with 2 L of oxygen via nasal cannula into the mid to upper 90s. His wheezing resolved with a DuoNeb treatment. Currently he was given a DuoNeb treatment in route. EMS states on their arrival he was outside smoking without oxygen on in the cold. His oxygen saturation initially was 84% on room air but again he is supposed to be on oxygen [id number]. They put him on 2 L of oxygen via nasal cannula for transport and given DuoNeb and oxygen again came up into the mid to upper 90s. He denies any fevers or chills. He has no new symptoms from this morning. I did prescribe him recurrent dose of steroid medicines this morning and he is already on cefdinir from his visit on 10/31. Allergies and Home Medications Allergies Coded Allergies: doxycycline (Verified Allergy, Severe, Rash, 06/24/18) levofloxacin (Verified Allergy, Severe, Rash, 06/24/18) Patient Home Medication List Home Medication List Reviewed: Yes Apixaban (Eliquis) 2.5 Mg Tablet, 2.5 MG PO HS, (Reported) Entered as Reported by: ROSA REED on 06/24/18 1336 Aspirin (Aspirin EC) 81 Mg Tablet.dr, 81 MG PO HS, (Reported) Entered as Reported by: ROSA REED on 06/24/18 1336 Azithromycin (Azithromycin) 250 Mg Tablet, 250 MG PO UD Prescribed by: GERALDINE CARDONA on 10/31/22 1006 Cefdinir (Cefdinir) 300 Mg Capsule, 300 MG PO BID Prescribed by: GERALDINE CARDONA on 10/31/22 1006 Cetirizine HCl (Zyrtec) 10 Mg Tablet, 10 MG PO HS, (Reported) Entered as Reported by: ROSA REED on 06/24/18 133 Cyanocobalamin (Vitamin B-12) (Vitamin B-12) 500 Mcg Tablet, 1,000 MCG PO HS, (Reported) Entered as Reported by: ROSA REED on 06/24/18 133 Duloxetine HCl (Duloxetine HCl) 60 Mg Capsule.dr, 60 MG PO HS, (Reported) Entered as Reported by: ROSA REED on 06/24/18 133 Fluticasone Propionate (Fluticasone Propionate) 16 Gm [place].susp, 2 SPRAYS NS HS PRN for ALLERGIES, (Reported) Entered as Reported by: ROSA REED on 06/24/18 140 Gabapentin (Gabapentin) 300 Mg Capsule, 600 MG PO HS, (Reported) Entered as Reported by: ROSA REED on 06/24/18 133 Hydrocodone Bit/Acetaminophen (Lortab 5 Mg Tablet) 1 Each Tablet, 1 TAB PO TID PRN for PAIN-MODERATE, (Reported) Entered as Reported by: ROSA REED on 06/24/18 133 Ipratropium/Albuterol Sulfate (Iprat-Albut 0.5-3(2.5) mg/3 ml) 3 Ml Ampul.neb, 3 ML IH Q6H PRN for SHORTNESS OF BREATH, (Reported) Entered as Reported by: ROSA REED on 06/24/18 1347 Lurasidone HCl (Latuda) 80 Mg Tablet, 80 MG PO HS, (Reported) Entered as Reported by: ROSA REED on 06/24/18 133 Metformin HCl (Metformin HCl) 1,000 Mg Tablet, 1,000 MG PO HS, (Reported) Entered as Reported by: ROSA REED on 06/24/18 140 Montelukast Sodium (Singulair) 10 Mg Tablet, 10 MG PO HS, (Reported) Entered as Reported by: ROSA REED on 06/24/18 133 Oxycodone HCl/Acetaminophen (Oxycodone-Acetaminophen 5-325) 5 Mg-325 Mg Tablet, 1 EACH PO Q6H PRN for PAIN-SEVERE (8-10) Prescribed by: MICHEL FARLEY on 09/09/228 Pantoprazole Sodium (Protonix) 40 Mg Tablet.dr, 40 MG PO HS, (Reported) Entered as Reported by: ROSA REED on 06/24/18 1336 Prednisone (Prednisone) 20 Mg Tab, 40 MG PO DAILY Prescribed by: GERALDINE CARDONA on 10/31/22 1006 Prednisone (Prednisone) 50 Mg Tab, 50 MG PO DAILY Prescribed by: FOREST HUERTA MD on 11/07/22 1031 Promethazine HCl (Promethazine Tablet) 25 Mg Tablet, 25 MG PO Q6H PRN for NAUSEA/VOMITING-2ND LINE, (Reported) Entered as Reported by: ROSA REED on 06/24/18 1336 Promethazine HCl (Promethazine Tablet) 25 Mg Tablet, 25 MG PO HS, (Reported) Entered as Reported by: ROSA REED on 06/24/18 1401 Review of Systems Review of Systems Constitutional: no symptoms reported EENTM: no symptoms reported Respiratory: short of breath Cardiovascular: no symptoms reported Gastrointestinal: no symptoms reported Genitourinary: no symptoms reported Musculoskeletal: no symptoms reported Skin: no symptoms reported Psychiatric/Neurological: No Symptoms Reported Endocrine: No Symptoms Reported Hematologic/Lymphatic: No Symptoms Reported Past Jwiqfec-Pifgtp-Qyfopu Hx Patient Social History Tobacco Use?: Yes Use of E-Cig and/or Vaping dev: No Substance use?: No Alcohol Use?: No Immunizations Up To Date Tetanus Booster (TDap): Unknown PED Vaccines UTD: No First/Initial COVID19 Vaccinat: 2020 Second COVID19 Vaccination [place]: 2020 Third COVID19 Vaccination Date: 2021 Seasonal Allergies Seasonal Allergies: No Past Medical History Surgery/Hospitalization HX: COPD, CAD with stent placement, Lung mass removal 08/22/[address] [facility] Surgeries: Yes (CARDIAC CATH WITH STENT X 1) Cardiac, Coronary Stent Respiratory: No Pneumonia, Chronic Bronchitis, COPD, Emphysema Currently Using CPAP: No Currently Using BIPAP: No Cardiac: Yes Coronary Artery Disease, Heart Attack, High Cholesterol Neurological: No Sexually Transmitted Disease: No HIV/AIDS: No Genitourinary: No Prostate Problems Gastrointestinal: Yes Gastroesophageal Reflux, Gastrointestinal Bleed, Esophagitis, Ulcer Musculoskeletal: No Arthritis, Chronic Back Pain Endocrine: No HEENT: No Cataract Loss of Vision: Bilateral Hearing Impairment: Hard of Hearing Cancer: Yes Colon Did You Recieve Any Treatments: Yes What Type of Treatment Did You: Chemotherapy Psychosocial: No Integumentary: No Blood Disorders: No Adverse Reaction/Blood Tranf: No Family Medical History Reviewed Nursing Family Hx No Pertinent Family Hx Physical Exam Vital Signs Capillary Refill : Height, Weight, BMI Height: 5'9.00" Weight: 185lbs. 4.0oz. [id number]; 22.00 BMI Method:Stated General Appearance: No Apparent Distress, WD/WN HEENT: Normal ENT Inspection, Pharynx Normal Neck: Full Range of Motion, Normal Inspection, Non Tender, Supple Respiratory: Chest Non Tender, No Respiratory Distress, Wheezing (Slight inspiratory and expiratory wheezing bilaterally) Cardiovascular: Regular Rate, Rhythm, No Murmur, Normal Peripheral Pulses Gastrointestinal: Normal Bowel Sounds, No Pulsatile Mass, Non Tender, Soft Extremity: Normal Capillary Refill, Normal Inspection, Normal Range of Motion, Non Tender, No Calf Tenderness Neurologic/Psychiatric: Alert, Oriented x3, No Motor/Sensory Deficits Skin: Normal Color, Warm/Dry Lymphatic: No Adenopathy Departure Communication (Admissions) Patient is hemodynamically stable. His oxygen is 100% on 2 L of oxygen via nasal cannula. He has very scant wheezes bilaterally on exam on arrival. He just received a DuoNeb treatment from EMS. Is unclear if he picked up the prednisone that I prescribed at this morning. His blood pressure is normal and heart rate is normal as well. He states none of his symptoms have changed since this morning. He had a chest x-ray this morning that showed no evidence for pneumonia. On the he had significant leukocytosis however his white blood cell count had normalized after an outpatient course of antibiotics with cefdinir which he actually still had some doses of implant to continue until it was gone. His electrolytes and renal function were normal this morning as well. Cardiac work-up was negative. I spoke with him about not meeting criteria for admission and he was visibly irritated. He states "I cannot breathe through with my nose so I cannot breathe." I advised him that his oxygen was 100% on his home oxygen requirement as well as the fact that he had a nebulizer at home. I stated that there was nothing more than an admission to the hospital could provide for him and what he was currently getting at home. He is visibly irritated and begins yelling at me. He requests to go home stating that he will just go to [place]. I advised him that there is no guarantee that he would be admitted at the [facility] either if he did not meet any requirements for admission. He removes all of his monitoring devices and walks out the door stating "I will never come back here again." He did have a cigarette in his hand and did not have his portable oxygen on as he stormed out. He was in no obvious distress and speaking full sentences. Impression Primary Impression: COPD with exacerbation Disposition: 07 AGAINST MEDICAL ADVICE Condition: Stable Departure-Patient Inst. Referrals: NO,LOCAL PHYSICIAN (PCP/Family) Primary Care Physician Add. Discharge Instructions: Your oxygen level is 100% on 2 L of oxygen which is what you wear at home. There is no indication for admission to the hospital. Your chest x-ray shows no evidence for pneumonia. Continue to use your DuoNeb treatments at home, rescue inhaler as needed and continue to take the steroid medicine as previously prescribed. Continue the cefdinir, antibiotic, until it is gone as per previous instructions. it is important that you wear oxygen [id number]. If you continue to have extended periods of time without oxygen, your symptoms will get worse. When you take it off for some period of time with the damage to your lungs from COPD, it will likely take you a little bit of time to recover which is normal. FOREST HUERTA DO Nov 07, 2022 19:39
== END 2022-11-07 19:45 | disposition left against medical advice (07) ==
LOC: EDUNIT# 19:25 → ER FS 19:26
DX: J44.1 Chronic obstructive pulmonary disease with (acute) exacerbation (principal)
CPT/HCPCS: 93005; 99283